=== PATIENT | female | born 1940 | race American Indian/Alaskan Native ===

== ENCOUNTER 2016-10-18 14:28 | Outpatient (CLI) | payer MEDICARE ==
--- NOTE | 2016-10-19 11:52 | Ultrasound Report ---
Renal sonogram: History: Chronic kidney disease. Findings: Right kidney 10.6 x 4.3 x 4.6 cm. Cortical thickness is 1.0 cm. No mass. No hydronephrosis. Left kidney 10 x 4.4 x 4.7 cm. Cortical thickness 1.4 cm. No mass. No hydronephrosis. Impression: Essentially negative renal sonogram
== END 2016-10-18 14:29 | disposition home or self-care (01) ==
LOC: US 14:28
PROVIDERS: ATTEND Internal Medicine Nephrology
DX: N18.4 Chronic kidney disease, stage 4 (severe) (principal)
CPT/HCPCS: 76770

== ENCOUNTER 2017-08-12 12:26 | Day surgery (SDC) | payer MEDICARE ==
[~2017-08-12 12:26] MED LIST: NACL 0.9% 1000 ML 1,000 ML IV SCH; VANCOMYCIN/NS 1 GM/250 ML 1 GM/250 ML BAG IV NR
[2017-08-12] MEDS ORDERED: SUBLIMAZE IV PRN (13:48)
[2017-08-12] MEDS ORDERED: DILAUDID IV PRN (13:48)
--- NOTE | 2017-08-12 13:50 | Anesthesia Day of Surgery ---
Anesthesia Day of Surgery - Day of Surgery Patient Examined: Yes Patient H&P Reviewed: Yes Patient is NPO: Yes
--- NOTE | 2017-08-12 13:51 | Anesthesia Consultation ---
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
[2017-08-12] MEDS ORDERED: PEPCID IV NR (14:00)
[2017-08-12] MEDS ORDERED: LACTATED RINGERS 1,000 ML IV SCH (14:00)
[2017-08-12 14:58] LABS: Calcium 9.2 mg/dL (8.4-10.2)
[2017-08-12] MEDS ORDERED: VANCOMYCIN/NS 1 GM/250 ML 1 GM/250 ML BAG IV NR (15:00)
[2017-08-12] MEDS ORDERED: BENADRYL IV PRN (19:56)
[2017-08-12] MEDS ORDERED: XYLOCAINE MPF 2% ONE (20:39)
[2017-08-12] MEDS ORDERED: DIPRIVAN 10 MG/ML IV ONE (20:39)
[2017-08-12] MEDS ORDERED: DILAUDID ONE (20:39)
[2017-08-12] MEDS ORDERED: MARCAINE 0.5% INFILTRATI ONE (21:24)
[2017-08-12] MEDS ORDERED: HEPARIN 10,000 UNITS/10 ML IV ONE (21:24)
[2017-08-12] MEDS ORDERED: NACL 0.9% 500 ML IV ONE (21:24)
[2017-08-12] MEDS ORDERED: NACL 0.9% 500 ML 500 ML ONE (21:31)
[2017-08-12] MEDS ORDERED: HEPARIN 10,000 UNITS/10 ML ONE (21:31)
[2017-08-12] MEDS ORDERED: MARCAINE 0.25% INFILTRATI ONE (21:31)
--- NOTE | 2017-08-12 22:34 | Post Anesthesia Evaluation ---
- Post Anesthesia Evaluation Patient Participated: Yes Airway Patent: Yes Stable Respiratory Function: Yes Temp > 96.8F: Yes Pain Manageable: Yes Adequeate Hydration: Yes Anesthesia Complications: No
--- NOTE | 2017-08-12 22:56 | Short Stay Summary ---
Short Stay Documentation Date of service: 08/12/17 Narrative H&P: See H&P - History H&P: obtained from office - Allergies and Medications Current Medications: Allergies aspirin Allergy (Verified 08/12/17 17:00) Swelling latex Allergy (Verified 08/06/17 10:53) rash, blisters Penicillins Allergy (Verified 08/06/17 10:53) Unknown sulfamethoxazole [From Bactrim] Allergy (Verified 08/12/17 16:49) Swelling trimethoprim [From Bactrim] Allergy (Verified 08/12/17 16:49) Swelling vancomycin Adverse Reaction (Verified 08/12/17 20:03) Itching STARTED ITCHING TO AXILLA AND NECK AFTER RECEIVING VANCOMYCIN IV. Home Medications Medication Instructions Recorded Confirmed Last Taken Type Carbidopa/Levodopa ER 50-200 1 each PO QID 04/30/14 08/12/17 08/12/17 17:45 History [Sinemet ER 50/200] Amantadine HCl [Amantadine] 200 mg PO DAILY 08/06/17 08/12/17 08/11/17 12:00 History Ascorbic Acid [Vitamin C] 1,000 mg PO Q48H 08/06/17 08/12/17 08/10/17 History Docusate Sodium [Colace] 100 mg PO BID PRN 08/06/17 08/12/17 07/29/17 History Folic Acid [Folvite] 25 mg PO DAILY 08/06/17 08/12/17 08/11/17 12:00 History Furosemide [Lasix] 20 mg PO QDAY 08/06/17 08/12/17 08/11/17 18:00 History Ubidecarenone [Co Q-10] 100 mg PO DAILY 08/06/17 08/12/17 08/10/17 History Active Medications Diphenhydramine HCl (Benadryl) 25 mg IV ONCE PRN PRN Reason: Itching Last Admin: 08/12/17 20:19 Dose: 25 mg Famotidine (Pepcid) 20 mg IV PREOP NR Stop: 08/12/17 23:00 Last Admin: 08/12/17 14:23 Dose: 20 mg Fentanyl (Sublimaze) 50 mcg IV Q5MIN PRN PRN Reason: Pain , Severe (7-10) Hydromorphone HCl (Dilaudid) 0.25 mg IV Q10MIN PRN PRN Reason: Pain, Moderate (4-6) Sodium Chloride (Nacl 0.9% 1000 Ml) 1,000 mls @ 42 mls/hr IV DIRECT JUSTIN Last Admin: 08/12/17 16:52 Dose: 42 mls/hr Lactated Ringer's (Lactated Ringers) 1,000 mls @ 100 mls/hr IV DIRECT JUSTIN Last Admin: 08/12/17 14:23 Dose: 100 mls/hr - Brief post op/procedure progress note Date of procedure: 08/12/17 Pre-op diagnosis: Chronic Renal Sufficiency Post-op diagnosis: same Procedure: Creation of Left Brachiocephalic Arteriovenous Fistula Anesthesia: PAVITHRA Surgeon: RAMSEY BERRIOS Estimated blood loss: minimal Pathology: none Condition: stable - Disposition Condition at discharge: Good Disposition: DC-01 TO HOME OR SELFCARE Short Stay Discharge Plan Activity: other (no heavy lifting with left arm) Wound: open to air, keep clean and dry, other (okay to wash the wound with soap and water but do not soak in water) Follow up with: RAMSEY BERRIOS MD [Staff Physician] - 14 Days Prescriptions: HYDROcodone/APAP 7.5-325 [[place] 7.5/325] 1 each PO Q6HR PRN #40 tablet PRN Reason: Pain
--- NOTE | 2017-08-12 22:58 | Operative Report ---
Operative Report Operative Report: Date of procedure: 08/12/2018 Pre-operative diagnosis: End-Stage Renal Disease Post-operative diagnosis: End-Stage Renal Disease Procedure(s): Creation of Left Brachial Artery to Cephalic Vein Arteriovenous Fistula Surgeon: Harish Salmeron MD Ladies Suit Operator: Tristin Deng PA-C Anesthesia: Gen. endotracheal anesthesia EBL: Minimal Counts: Correct Complications: None Condition: Stable Findings: Successful creation of left brachiocephalic arteriovenous fistula with palpable thrill at the completion of the case. Specimen: None Indications: The patient is a 76-year-old female with a history of chronic renal insufficiency who was not yet on dialysis however it is anticipated that she will require dialysis in the next few months. She had a vein mapping that demonstrated she was an adequate candidate for creation of an AV fistula. She was offered the fistula and given the risks, benefits, and alternative procedures and consented to the procedure. Description of Procedure: The patient was brought to the operating room and laid in supine position after general endotracheal anesthesia was administered the patient was prepped and draped in normal sterile fashion. After anesthetizing the skin a transverse incision was created just below the antecubital crease. Dissection was carried down to the the cephalic vein using sharp dissection. The vein was dissected out both proximally and distally and suture ligated and divided distally. I then ran a 3 Thierno proximally in the vein, to ensure patency of the vein. Then flushed the vein with heparinized saline and flow was controlled with a bulldog clamp. I then dissected out the brachial artery through this incision circumferentially both proximal and distal and controlled the artery with vessel loops. I then placed the vessel loops on tension controlling the flow through the artery and created an arteriotomy using an 11 blade and Ling scissors. I created an end to side anastomosis between the cephalic vein and brachial artery using a 6-0 Prolene in running fashion. Prior to completing the anastomosis I flushed the artery both proximally and distally and then advanced a 3 Thierno proximally to break the spasm in the artery. I then completed the anastomosis and removed all vessel loops allowing flow into the fistula which had an excellent thrill. I achieved hemostasis with a combination of direct pressure and electrocautery. Once hemostasis was achieved I anesthetized the wound with Marcaine. I then closed the wound in 2 layers and 3-0 Vicryl in a running fashion to close the deep dermal layer and 4- 0 Monocryl in a running fashion in the subcuticular layer. I dressed the wound with Surgicel. The patient tolerated the procedure well, all sponge needle and instrument counts were correct. The patient was taken to recovery in stable condition.
[2017-08-12] MEDS ORDERED: APRESOLINE IV PRN (23:00)
[2017-08-12 23:36] VITALS: BP 155/84
== END 2017-08-12 12:27 | disposition home or self-care (01) ==
LOC: OR 12:26
PROVIDERS: ATTEND Surgery Vascular Surgery
DX: I12.0 Hypertensive chronic kidney disease with stage 5 chronic kidney disease or end stage renal disease (principal); N18.6 End stage renal disease; G20 Parkinson's disease; M19.90 Unspecified osteoarthritis, unspecified site; Z79.899 Other long term (current) drug therapy; Z88.1 Allergy status to other antibiotic agents; Z88.0 Allergy status to penicillin; Z88.2 Allergy status to sulfonamides; Z88.8 Allergy status to other drugs, medicaments and biological substances; Z88.6 Allergy status to analgesic agent; Z91.040 Latex allergy status; Z85.038 Personal history of other malignant neoplasm of large intestine; Z90.710 Acquired absence of both cervix and uterus; Z98.890 Other specified postprocedural states
CPT/HCPCS: 36415; 36821; 80048; J0360; J1170; J1200; J1644; J2704; J7030; J7040; J7120; J3370

== ENCOUNTER 2017-10-14 10:43 | Day surgery (SDC) | payer MEDICARE ==
[~2017-10-14 10:43] MED LIST changes: +CLEOCIN 600 MG/50 mL 600 MG/50 ML BAG IV NR; +HEPARIN 10,000 UNITS/10 ML ONE; +MARCAINE 0.5% INFILTRATI ONE; +NACL 0.9% 250ML 250 ML ONE; +SODIUM CHLORIDE FLUSH SYRINGE 10 ML IV PRN; -VANCOMYCIN/NS 1 GM/250 ML 1 GM/250 ML BAG IV NR
[2017-10-14] MEDS ORDERED: NACL BACTERIOSTATIC INFILTRATI ONE (11:36)
--- NOTE | 2017-10-14 13:15 | Anesthesia Consultation ---
Anesthesia Consult and Med Hx Date of service: 10/14/17 - Airway Anesthetic Teeth Evaluation: Good ROM Head & Neck: Inadequate (borderline on extension, rotation is what the patient indicates aggravates the arthritis) Mental/Hyoid Distance: Adequate Mallampati Class: Class II Intubation Access Assessment: Possibly Difficult - Pulmonary Exam CTA: Yes - Cardiac Exam Cardiac Exam: RRR - Pre-Operative Health Status ASA Pre-Surgery Classification: ASA3 Proposed Anesthetic Plan: General - Pulmonary Hx Smoking: No - Cardiovascular System Hx Hypertension: Yes (at least 6 yrs) - Central Nervous System Hx Neuromuscular Disorder: Yes (parkinsons dz/can swallow without problem) Hx Seizures: Yes (related to Parkinson's Disease) Hx Psychiatric Problems: No - Endocrine Hx Renal Disease: Yes Hx End Stage Renal Disease: Yes - Other Systems Hx Cancer: Yes
--- NOTE | 2017-10-14 13:17 | Anesthesia Day of Surgery ---
Anesthesia Day of Surgery - Day of Surgery Patient Examined: Yes Patient H&P Reviewed: Yes Patient is NPO: Yes
[2017-10-14 13:18] LABS: Mean Corpuscular HGB Conc 31 % (30-34); Mean Corpuscular Hemoglobin 28 pg (28-32); Mean Corpuscular Volume 89 fl (79-97); Platelet Count 153 K/mm3 (140-440); Red Blood Count 4.86 M/mm3 (3.65-5.03); Red Cell Distribution Width 17.1 % (13.2-15.2)
[2017-10-14 13:19] LABS: Hematocrit 43.2 % (30.3-42.9); Hemoglobin 13.4 gm/dl (10.1-14.3)
[2017-10-14 13:24] LABS: INR 0.97 (0.87-1.13)
[2017-10-14 13:27] LABS: Calcium 9.2 mg/dL (8.4-10.2)
[2017-10-14] MEDS ORDERED: DIPRIVAN 10 MG/ML IV ONE (14:43)
[2017-10-14] MEDS ORDERED: SUBLIMAZE ONE (14:43)
[2017-10-14] MEDS ORDERED: MARCAINE 0.5% INFILTRATI ONE ×2 (14:53→16:10)
[2017-10-14] MEDS ORDERED: RIFADIN ONE (15:06)
[2017-10-14] MEDS ORDERED: NACL 0.9% IR ONE (16:10)
[2017-10-14] MEDS ORDERED: HEPARIN 10,000 UNITS/10 ML 1,000 UNIT in NACL 0.9% 250ML 250 ML IR ONE (16:10)
[2017-10-14] MEDS ORDERED: RIFADIN 600 MG in NACL 0.9% 50 ML IR ONE (16:11)
[2017-10-14] MEDS ORDERED: NEO SYNEPHRINE/NS Syringe(OR USE) IV ONE (16:11)
[2017-10-14] MEDS ORDERED: ZOFRAN ONE (16:12)
[2017-10-14] MEDS ORDERED: XYLOCAINE MPF 2% ONE (16:13)
[2017-10-14] MEDS ORDERED: ePHEDrine SULFATE ONE (16:25)
--- NOTE | 2017-10-14 17:08 | Short Stay Summary ---
Short Stay Documentation Date of service: 10/14/17 Narrative H&P: See H&P - History H&P: obtained from office - Allergies and Medications Current Medications: Allergies aspirin Allergy (Verified 10/10/17 14:46) Swelling latex Allergy (Verified 10/10/17 14:46) rash, blisters Penicillins Allergy (Verified 10/10/17 14:46) Unknown sulfamethoxazole [From Bactrim] Allergy (Verified 10/10/17 14:46) Swelling trimethoprim [From Bactrim] Allergy (Verified 10/10/17 14:46) Swelling vancomycin Adverse Reaction (Verified 10/10/17 14:46) Itching STARTED ITCHING TO AXILLA AND NECK AFTER RECEIVING VANCOMYCIN IV. Home Medications Medication Instructions Recorded Confirmed Last Taken Type Carbidopa/Levodopa ER 50-200 1 each PO QID 04/30/14 10/14/17 10/14/17 09:15 History [Sinemet ER 50/200] Amantadine HCl [Amantadine] 200 mg PO DAILY 08/06/17 10/14/17 10/13/17 History Ascorbic Acid [Vitamin C] 300 mg PO DAILY 08/06/17 10/14/17 10/12/17 History Docusate Sodium [Colace CAP] 100 mg PO BID PRN 08/06/17 10/14/17 10/13/17 History Folic Acid [Folvite] 25 mg PO DAILY 08/06/17 10/14/17 10/13/17 History Furosemide [Lasix TAB] 20 mg PO QDAY 08/06/17 10/14/17 10/12/17 History Ubidecarenone [Co Q-10] 100 mg PO DAILY 08/06/17 10/14/17 10/13/17 History Cholecalciferol (Vitamin D3) 50,000 unit PO 1XW 10/14/17 10/14/17 10/13/17 History [Vitamin D3] cloNIDine [Catapres] 0.2 mg PO PRN PRN 10/14/17 10/14/17 1 Week Ago History ~10/07/17 Active Medications Clindamycin HCl (Cleocin 600 Mg/50 Ml) 600 mg in 50 mls @ 100 mls/hr IV PREOP NR; Protocol Stop: 10/14/17 23:59 Sodium Chloride (Nacl 0.9% 1000 Ml) 1,000 mls @ 42 mls/hr IV DIRECT JUSTIN Last Admin: 10/14/17 12:05 Dose: 42 mls/hr Sodium Chloride (Sodium Chloride Flush Syringe 10 Ml) 10 ml IV PRN PRN PRN Reason: flush - Brief post op/procedure progress note Date of procedure: 10/14/17 Pre-op diagnosis: End-Stage Renal Disease Post-op diagnosis: same Procedure: Creation of Left Arm AV Graft Using 5 Mm Bovine Graft Anesthesia: GETA Surgeon: RAMSEY BERRIOS Estimated blood loss: 50-100ml Pathology: none Condition: stable - Disposition Condition at discharge: Good Disposition: DC-01 TO HOME OR SELFCARE Short Stay Discharge Plan Activity: other (no heavy lifting with left arm) Wound: open to air, keep clean and dry Follow up with: RAMSEY BERRIOS MD [Staff Physician] - 14 Days Prescriptions: HYDROcodone/APAP 7.5-325 [[place] 7.5/325] 1 each PO Q6HR PRN #40 tablet PRN Reason: Pain
--- NOTE | 2017-10-14 17:09 | Operative Report ---
Operative Report Operative Report: Date of procedure: 10/14/2017 Pre-operative diagnosis: End-Stage Renal Disease Post-operative diagnosis: Same Procedure(s): 1. Creation of Left Brachial Artery to Axillary Vein AV Graft with 5 mm Bovine Graft Surgeon: Harish Salmeron MD Certified Breastfeeding Educator: None Anesthesia: General Endotracheal Anesthesia EBL: Minimal Counts: Correct Complications: None Condition: Stable Findings: Successful Creation of Left Arm AV Graft Specimen: None Indication: The patient is 76-year-old female with history of end-stage renal disease who previously had creation of a left arm AV fistula that failed. She is in need of long-term access and needs creation of an AV graft. She was given the risks , benefits, and alternative procedures and consented to the procedure. Description of Procedure: The patient was brought to the operating room and laid in supine position after general endotracheal anesthesia was achieved the left arm was prepped and draped in normal sterile fashion. A longitudinal incision was made on the medial aspect of the arm just proximal to the antecubital crease and carried down to the brachial artery using sharp dissection. The brachial artery was dissected out circumferentially both proximally and distally and controlled with vessel loops. A second incision was created in longitudinal fashion on the medial aspect of the arm just distal to the axillary crease and carried down to the axillary vein using sharp dissection. Axillary vein was dissected out circumferentially and controlled with a vessel loop. I then used a Angie- Wick tunneler to tunnel from the brachial artery incision to the axillary vein incision and then put an 5 mm bovine through the tunnel. I infused with heparinized saline to ensure that it was not twisted or kinked. I put the brachial artery vessel loops on tension controlling the flow and then created an arteriotomy using an 11 blade and Ling scissors. I beveled the graft and created an end-to-side anastomosis using 6-0 Prolene running fashion. I clamped the graft just proximal to the anastomosis and then released the vessel loops restoring flow in the brachial artery. I placed quick clot in incision to achieve hemostasis. I cut the proximal end of the graft to the appropriate length and beveled the graft in preparation for a venous anastomosis. I controlled the axillary vein a Satinsky clamp and created a venotomy using an 11 blade and Ling scissors. I created an end to side anastomosis using a 6-0 Prolene in running fashion. Prior to completing the anastomosis I flushed the graft to ensure there was no thrombus and then completed the anastamosis. I released all clamps allowing flow into the AV graft which had an excellent thrill. I packed the wound with quick clot to achieve hemostasis. I anesthetized both wounds with Marcaine and then closed both wounds in 2 layers using 3-0 Vicryl in running fashion in the deep dermal layer and 4-0 Monocryl in running fashion the subcuticular layer. I dressed both wounds with Surgicel. The patient tolerated the procedure well all sponge needle and instrument counts were correct the patient was taken to recovery in stable condition.
[2017-10-14] MEDS: DILAUDID IV PRN ×2 (17:22→17:45)
[2017-10-14] MEDS ORDERED: DILAUDID ONE (17:22)
[2017-10-14] MEDS ORDERED: ZOFRAN IV PRN (17:23)
--- NOTE | 2017-10-14 17:24 | Post Anesthesia Evaluation ---
- Post Anesthesia Evaluation Patient Participated: Yes Airway Patent: Yes Stable Respiratory Function: Yes Nausea/Vomiting: No Temp > 96.8F: Yes Pain Manageable: Yes Adequeate Hydration: Yes Anesthesia Complications: No
[2017-10-14] MEDS ORDERED: NORCO 5/325 PO PRN (17:46)
[2017-10-14 20:59] VITALS: BP 164/84
== END 2017-10-14 18:50 | disposition home or self-care (01) ==
LOC: OR 10:43
PROVIDERS: ATTEND Surgery Vascular Surgery
DX: I12.0 Hypertensive chronic kidney disease with stage 5 chronic kidney disease or end stage renal disease (principal); N18.6 End stage renal disease; G20 Parkinson's disease; M19.90 Unspecified osteoarthritis, unspecified site; Z88.0 Allergy status to penicillin; Z88.6 Allergy status to analgesic agent; Z88.2 Allergy status to sulfonamides; Z88.1 Allergy status to other antibiotic agents; Z85.9 Personal history of malignant neoplasm, unspecified; Z90.710 Acquired absence of both cervix and uterus; Z98.890 Other specified postprocedural states
CPT/HCPCS: 36415; 36830; 80048; 85025; 85610; C1757; C1768; J1170; J1644; J2370; J2405; J2704; J3010; J3490; J7030; J7050

== ENCOUNTER 2017-11-03 16:25 | Outpatient (CLI) | payer MEDICARE ==
--- NOTE | 2017-11-04 00:37 | XRay Report ---
FINAL REPORT EXAM: XR CHEST ROUTINE 2V HISTORY: SOB TECHNIQUE: AP and lateral views of the chest were submitted. There are no previous studies available for comparison. FINDINGS: Heart size and mediastinum appear normal. The lungs are clear. Pleural fluid is not seen. The skeletal structures reveal right humeral arthroplasty changes with arthritic changes left glenohumeral joint. IMPRESSION: No active chest disease.
== END 2017-11-03 16:26 | disposition home or self-care (01) ==
LOC: XRAY 16:25
PROVIDERS: ATTEND Internal Medicine Nephrology
DX: R06.02 Shortness of breath (principal); M24.819 Other specific joint derangements of unspecified shoulder, not elsewhere classified; I10 Essential (primary) hypertension; K21.9 Gastro-esophageal reflux disease without esophagitis; Z96.611 Presence of right artificial shoulder joint
CPT/HCPCS: 71046

== ENCOUNTER 2017-11-04 11:09 | Day surgery (SDC) | payer MEDICARE ==
[~2017-11-04 11:09] MED LIST changes: -CLEOCIN 600 MG/50 mL 600 MG/50 ML BAG IV NR; -HEPARIN 10,000 UNITS/10 ML ONE; -MARCAINE 0.5% INFILTRATI ONE; -NACL 0.9% 250ML 250 ML ONE; -SODIUM CHLORIDE FLUSH SYRINGE 10 ML IV PRN
[2017-11-04 12:54] LABS: Basophils % (Auto) 0.7 % (0.0-1.8); Eosinophils % (Auto) 1.2 % (0.0-4.3); Hemoglobin 12.1 gm/dl (10.1-14.3); Lymphocytes # (Auto) 1.3 K/mm3 (1.2-5.4); Lymphocytes % (Auto) 33.6 % (13.4-35.0); Mean Corpuscular HGB Conc 32 % (30-34); Mean Corpuscular Hemoglobin 27 pg (28-32); Mean Corpuscular Volume 85 fl (79-97); Monocytes # (Auto) 0.5 K/mm3 (0.0-0.8); Monocytes % (Auto) 12.3 % (0.0-7.3); Platelet Count 215 K/mm3 (140-440); Red Blood Count 4.48 M/mm3 (3.65-5.03); Red Cell Distribution Width 15.4 % (13.2-15.2)
[2017-11-04 13:04] LABS: INR 0.93 (0.87-1.13)
[2017-11-04 13:05] LABS: Partial Thromboplastin Time 32.2 Sec. (24.2-36.6)
[2017-11-04 13:14] LABS: Calcium 9.3 mg/dL (8.4-10.2)
[2017-11-04] MEDS ORDERED: HEPARIN/NS 5000 UNIT/500ML(CATH LAB) 1,000 ML IR ONE (14:20)
[2017-11-04] MEDS ORDERED: NACL 0.9% 250ML 250 ML ONE (14:36)
[2017-11-04] MEDS: SUBLIMAZE ONE ×8 (14:53→18:23)
[2017-11-04] MEDS: XYLOCAINE 2% INFILTRATI ONE ×2 (14:53→15:09)
[2017-11-04] MEDS: VERSED ONE ×7 (14:53→18:23)
[2017-11-04] MEDS: HEPARIN 10,000 UNITS/10 ML ONE ×3 (15:19→16:48)
[2017-11-04] MEDS ORDERED: CLEOCIN 600 MG/50 mL 600 MG/50 ML BAG IV NR (16:00)
[2017-11-04] MEDS ORDERED: HumaLOG SUB-Q ONE (16:37)
[2017-11-04] MEDS ORDERED: NITROGLYCERIN SYRINGE 3 ML ONE (16:44)
[2017-11-04] MEDS ORDERED: CALAN ONE (16:44)
[2017-11-04] MEDS ORDERED: HEPARIN/NS 5000 UNIT/500ML(CATH LAB) 500 ML IR ONE ×2 (17:01→17:55)
[2017-11-04] MEDS ORDERED: CATHFLO ONE ×2 (17:19→17:20)
[2017-11-04] MEDS ORDERED: APRESOLINE ONE (18:38)
--- NOTE | 2017-11-04 18:51 | Post Operative Note ---
Pre-op diagnosis: CKD Post-op diagnosis: same Findings: Succesful graft declotting LUE Procedure: Fistulagram with declot Anesthesia: local Surgeon: HOLDEN RANDHAWA Paralegal Supervisor: RAMSEY BERRIOS Estimated blood loss: minimal Pathology: none Condition: stable Disposition: same day
[2017-11-04] MEDS ORDERED: TYLENOL PO ONE (19:55)
[2017-11-04] MEDS ORDERED: TYLENOL ONE (19:55)
[2017-11-04 21:01] VITALS: BP 165/89
--- NOTE | 2017-11-05 11:02 | Operative Report ---
Operative Report Operative Report: Procedure: 1. Ultrasound-guided access of a left upper extremity AV graft directed towards the central circulation 1. Central venography 3. Lunar venoplasty of the venous anastomosis with a drug coated balloon 4. Ultrasound-guided access of the graft in the direction of the arterial anastomosis 5. Left upper extremity AV graft angiography 6. Ultrasound-guided access of the left radial artery 7. Left radial arteriography 8. Left brachial arteriography after selection. 9. Mechanical thrombolysis of the radial artery with a 6 [place] AngioJet 10. Plain old and then drug coated balloon angioplasty of the brachial and proximal radial artery 11. Plain old balloon angioplasty of the arterial anastomosis via the distal brachial artery through the graft 12. Repeat plain balloon angioplasty of the brachial artery across the arterial anastomosis. Date: 11/04/2017 Physician: Michele Wisdom MD 2nd Physician: Harish Salmeron MD Indication: 77-year-old female with CKD, not yet on dialysis. She has a clotted LUE AVG Technique The patient was placed in the supine position and prepped and draped in the usual sterile fashion. A timeout was performed. Preliminary sonographic evaluation of the left upper extremity graft was performed. A site was chosen, and local anesthetic was administered. Under continuous ultrasound guidance, a 21-gauge needle was advanced into the graft, facing the central circulation. This was then upsized to a 7 Slovenian vascular sheath via a micropuncture technique. Angiography was performed. A combination of a V18 wire and 4 Slovenian vertebral catheter was used to traverse the venous anastomosis and access the IVC. The venous anastomosis was treated with plain and old balloon angioplasty with a 4 mm and 6 mm balloon. A 7 mm drug coated balloon was then used to perform final angioplasty of the venous anastomosis. Repeat venography was performed. In a similar fashion as above, a 6 Slovenian vascular sheath was placed in the more proximal portion of the graft, facing the arterial anastomosis. Initially , no wires would cross the anastomosis, and it appeared occluded. After prolonged attempts to cross, with multiple wires and catheters, the decision was made to access the radial artery for further investigation. Local anesthetic was administered, and a 21-gauge needle was used to access the distal left radial artery. The needle was upsized to a slender glide sheath. Through the glide sheath, a glide wire and vertebral catheter were used to access the brachial artery. Arteriography was performed. Based on the imaging, a 6 [place] AngioJet catheter was used to perform mechanical thrombolysis of the distal brachial and proximal ulnar artery. This was done 3 times, with repeat arteriography after each run. First a plain 4 mm balloon, then a 6 mm drug coated balloon was used to perform angioplasty on the distal portion of the brachial artery. A wire from the radial artery was then redirected into the graft, and balloon angioplasty was performed extending from the graft to the portion of the brachial artery distal to the anastomosis; this was performed with a 4 mm and then 5 mm balloon. Repeat angioplasty of the brachial artery segment involving the anastomosis was performed at higher pressures with a 6 mm mustang balloon. The radial artery sheath was removed and hemostasis was achieved with manual pressure and a pressure dressing. Both sheaths were removed from the arm, and hemostasis was achieved with 3-0 Vicryl pursestring sutures. Findings: 1. 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 There was successful removal of clot from the graft. 2. The arterial anastomosis was narrowed and friable, as was the axillary vein segment just central to the venous anastomosis. Patency was largely restored after venoplasty with a drug coated balloon. 3. Retrograde passage of a wire across the arterial anastomosis was extremely difficult initially. Imaging via the radial artery access revealed the distal brachial artery to be near completely thrombosed, with this region of thrombosis extending to the proximal radial artery. Numerous robust collateral arteries indicate that this was a long-standing process and may have been the reason that this patient's initial fistula failed to mature. 4. The patient's bounding radial pulse and patency of the distal radial artery on both fluoroscopy and ultrasound is the result of the aforementioned numerous large collateral arteries reconstituting distal flow. 5. After extensive procedure time involving prolonged wire/catheter manipulation and balloon angioplasty, there is successful reconstitution of flow in the distal brachial artery and the arterial anastomosis of the AV graft. Plan: The patient will be sent home on short-term Eliquis for 2 weeks because of the findings in the brachial/radial arteries.
== END 2017-11-04 21:23 | disposition home or self-care (01) ==
LOC: CATHLABREC 11:09
PROVIDERS: ATTEND Surgery Vascular Surgery
DX: T82.590A Other mechanical complication of surgically created arteriovenous fistula, initial encounter (principal); I12.0 Hypertensive chronic kidney disease with stage 5 chronic kidney disease or end stage renal disease; N18.6 End stage renal disease; Z79.01 Long term (current) use of anticoagulants; Z88.0 Allergy status to penicillin; Z88.6 Allergy status to analgesic agent; Z88.2 Allergy status to sulfonamides; Z88.1 Allergy status to other antibiotic agents; Z90.710 Acquired absence of both cervix and uterus; Z91.040 Latex allergy status
CPT/HCPCS: 36415; 36905; 80048; 85025; 85610; 85730; C1725; C1751; C1757; C1769; C1887; C1894; C2623; J0360; J1644; J2250; J2997; J3010; J7050; J1815; Q9967

== ENCOUNTER 2018-10-23 17:47 | Inpatient (IN) | payer MEDICARE ==
--- NOTE | 2018-10-23 18:15 | Emergency Department Report ---
Chief Complaint: Chest Pain Stated Complaint: CHEST CONGESTED/NAUSEA Time Seen by Provider: 10/23/18 18:10 - HPI History of Present Illness: This is a 78 y.o. female that presents with chest pain and n/v x 3 days. PMH: GERD, arthritis, HTN, ESRD, Parkinson, and vascular insufficiency Patient states symptoms started in stomach and progressed to chest. She called chalk machine operator who states symptoms may be related to kidneys. She has not started dialysis yet. - Exam Vital Signs: Vital Signs 10/23/18 17:55 Temperature 98.6 F Pulse Rate 91 H Respiratory 18 Rate Blood Pressure 126/63 O2 Sat by Pulse 100 Oximetry MSE screening note: Focused history and physical exam performed. Due to findings the following was ordered: Labs, EKG, and CXR Main ED for further evaluation. ED Disposition for MSE Condition: Stable
--- NOTE | 2018-10-23 19:28 | XRay Report ---
PROCEDURE: XR CHEST 1V AP TECHNIQUE: PA views of the chest. HISTORY: Chest Pain COMPARISONS: CXR 11/03/2017 FINDINGS: Lines, tubes, and devices: N/A Lungs and pleura: Trachea is normal in position. Lungs are clear of infiltrate, pleural effusion, vas cular congestion, or pneumothorax. No change Cardiomediastinal silhouette: Heart is enlarged with left ventricular configuration, stable Other: Bony structures are intact. Right shoulder replacement is noted. IMPRESSION: No acute cardiopulmonary process seen. No change.. This document is electronically signed by Britney Golden MD., October 23 2018 07:25:56 PM ET
[2018-10-23 19:44] LABS: Basophils % (Auto) 0.3 % (0.0-1.8); Eosinophils % (Auto) 0.8 % (0.0-4.3); Hematocrit 32.9 % (30.3-42.9); Hemoglobin 10.4 gm/dl (10.1-14.3); Lymphocytes # (Auto) 1.5 K/mm3 (1.2-5.4); Lymphocytes % (Auto) 30.3 % (13.4-35.0); Mean Corpuscular HGB Conc 32 % (30-34); Mean Corpuscular Volume 80 fl (79-97); Monocytes # (Auto) 0.5 K/mm3 (0.0-0.8); Monocytes % (Auto) 10.5 % (0.0-7.3); Platelet Count 276 K/mm3 (140-440)
[2018-10-23 19:45] LABS: Red Cell Distribution Width 20.1 % (13.2-15.2)
[2018-10-23 20:07] LABS: Calcium 9.4 mg/dL (8.4-10.2)
[2018-10-23 20:33] LABS: Chol/HDL Ratio 2.66 %
[2018-10-24] MEDS ORDERED: PLAVIX PO ONE (01:18)
[2018-10-24] MEDS ORDERED: NITRO-BID 2% TP ONE (01:32)
--- NOTE | 2018-10-24 01:38 | Emergency Department Report ---
HPI - General Chief Complaint: Chest Pain Time Seen by Provider: 10/23/18 18:10 - HPI HPI: Room 17 The patient is a 78-year-old female presenting with chief complaint of chest pain. The patient states for the past 3 days she's had intermittent chest pain was still someone is sitting on her chest. The patient states she has shortness of breath, nausea/vomiting and diaphoresis associated with her chest pain. Patient states her last stress test occurred approximately 7 years ago and she's never had a cardiac catheterization Location: Chest Duration: Intermittent 3 days Quality: Heaviness Severity: Currently 0/10 Modifying factors: [see above] Context: [see above] Mode of transportation: [not driving] ED Past Medical Hx - Past Medical History Hx Hypertension: Yes (at least 6 yrs) Hx GERD: Yes Hx Renal Disease: Yes Hx Arthritis: Yes Hx Seizures: Yes Additional medical history: Parkinson disease, Vascular insufficiency - Surgical History Additional Surgical History: Hysterectomy, Colon surgery, Fibroids removed - Family History Family history: no significant - Social History Smoking Status: Never Smoker Substance Use Type: None - Medications Home Medications: Home Medications Medication Instructions Recorded Confirmed Last Taken Type Carbidopa/Levodopa ER 50-200 1 each PO QID 04/30/14 11/04/17 11/04/17 History [Sinemet ER 50/200] 1 Amantadine HCl [Amantadine] 200 mg PO DAILY 08/06/17 11/04/17 11/03/17 History 200mg Ascorbic Acid [Vitamin C] 300 mg PO DAILY 08/06/17 11/04/17 11/03/17 History 300mg Docusate Sodium [Colace CAP] 100 mg PO BID PRN 08/06/17 11/04/17 10/13/17 History Folic Acid [Folvite] 25 mg PO DAILY 08/06/17 11/04/17 11/03/17 History 25mg Furosemide [Lasix TAB] 20 mg PO QDAY 08/06/17 11/04/17 11/03/17 History 20mg Ubidecarenone [Co Q-10] 100 mg PO DAILY 08/06/17 11/04/17 11/03/17 History 100mg Cholecalciferol (Vitamin D3) 50,000 unit PO 1XW 10/14/17 11/04/17 11/03/17 History [Vitamin D3] 50,000 units cloNIDine [Catapres] 0.2 mg PO PRN PRN 10/14/17 11/04/17 11/03/17 History 0.2mg Apixaban [Eliquis] 5 mg PO BID 14 Days #28 tablet 11/04/17 Unknown Rx HYDROcodone/ACETAMINOPHEN [[place] 1 each PO Q6H 2 Days #8 tablet 11/04/17 U nknown Rx 5-325 Tablet] ED Review of Systems ROS: Stated complaint: CHEST CONGESTED/NAUSEA Other details as noted in HPI Constitutional: diaphoresis Eyes: denies: eye pain ENT: denies: throat pain Respiratory: shortness of breath Cardiovascular: chest pain Endocrine: no symptoms reported Gastrointestinal: nausea, vomiting Genitourinary: denies: dysuria Musculoskeletal: denies: back pain Neurological: denies: headache Physical Exam - Physical Exam Vital Signs: Vital Signs 10/23/18 17:55 Temperature 98.6 F Pulse Rate 91 H Respiratory 18 Rate Blood Pressure 126/63 O2 Sat by Pulse 100 Oximetry Physical Exam: GENERAL: The patient is well-developed well-nourished female sitting in wheelchair not appearing to be in acute distress HEENT: Normocephalic. Atraumatic. Extraocular motions are intact. Patient has moist mucous membranes. NECK: Supple. Trachea midline CHEST/LUNGS: Clear to auscultation. There is no respiratory distress noted. HEART/CARDIOVASCULAR: Regular. There is no tachycardia. There is a 2/6 systolic murmur ABDOMEN: Abdomen is soft, nontender. Patient has normal bowel sounds. There is no abdominal distention. SKIN: There is no rash. There is no edema. There is no diaphoresis. NEURO: The patient is awake, alert, and oriented. The patient is cooperative. The patient has normal speech MUSCULOSKELETAL: There is no evidence of acute injury. ED Course Vital Signs 10/23/18 17:55 Temperature 98.6 F Pulse Rate 91 H Respiratory 18 Rate Blood Pressure 126/63 O2 Sat by Pulse 100 Oximetry ED Medical Decision Making - Lab Data Result diagrams: 10/23/18 19:18 10/23/18 19:18 Laboratory Tests 10/23/18 10/23/18 10/23/18 19:18 19:18 21:54 WBC 5.0 RBC 4.10 Hgb 10.4 Hct 32.9 MCV 80 MCH 25 L MCHC 32 RDW 20.1 H Plt Count 276 Lymph % (Auto) 30.3 [place] % (Auto) 10.5 H Eos % (Auto) 0.8 Baso % (Auto) 0.3 Lymph # 1.5 [place] # 0.5 Eos # 0.0 Baso # 0.0 Seg Neutrophils % 58.1 Seg Neutrophils # 2.9 Sodium 142 Potassium 3.7 Chloride 106.2 Carbon Dioxide 21 L Anion Gap 19 BUN 39 H Creatinine 1.5 H Estimated GFR 41 BUN/Creatinine Ratio 26 Glucose 93 Calcium 9.4 Troponin T 0.034 H 0.044 H D Triglycerides 66 Cholesterol 173 LDL Cholesterol Direct 104 HDL Cholesterol 65 H Cholesterol/HDL Ratio 2.66 10/24/18 00:36 WBC RBC Hgb Hct MCV MCH MCHC RDW Plt Count Lymph % (Auto) [place] % (Auto) Eos % (Auto) Baso % (Auto) Lymph # [place] # Eos # Baso # Seg Neutrophils % Seg Neutrophils # Sodium Potassium Chloride Carbon Dioxide Anion Gap BUN Creatinine Estimated GFR BUN/Creatinine Ratio Glucose Calcium Troponin T 0.045 H Triglycerides Cholesterol LDL Cholesterol Direct HDL Cholesterol Cholesterol/HDL Ratio - EKG Data -: EKG Interpreted by Me EKG shows normal: sinus rhythm Rate: normal - EKG Data When compared to previous EKG there are: previous EKG unavailable Interpretation: nonspecific ST-T wave iain (right bundle-branch block. T-wave inversions in leads V2, V3) - Radiology Data Radiology results: report reviewed (chest x-ray), image reviewed (chest x-ray) interpreted by me: Chest x-ray-no focal infiltrates, no pneumothorax [facility] [address] [place] [address] XRay Report Signed Patient: CHILANGO COPPOLA MR#: [id number] : 1940 Acct:[id number] Age/Sex: 78 / F ADM Date: 10/23/18 Loc: ED Attending Dr: Ordering Physician: THONY OLSEN Date of Service: 10/23/18 Procedure(s): XR chest 1V ap Accession Number(s): [id number] cc: THONY OLSEN Fluoro Time In Minutes: PROCEDURE: XR CHEST 1V AP TECHNIQUE: PA views of the chest. HISTORY: Chest Pain COMPARISONS: CXR 11/03/2017 FINDINGS: Lines, tubes, and devices: N/A Lungs and pleura: Trachea is normal in position. Lungs are clear of infiltrate, pleural effusion, vascular congestion, or pneumothorax. No change Cardiomediastinal silhouette: Heart is enlarged with left ventricular configuration, stable Other: Bony structures are intact. Right shoulder replacement is noted. IMPRESSION: No acute cardiopulmonary process seen. No change.. This document is electronically signed by Britney Golden MD., October 23 2018 07:25:56 PM ET Transcribed By: [facility] Dictated By: BRITNEY GOLDEN MD Electronically Authenticated By: BRITNEY GOLDEN MD Signed Date/Time: 10/23/181927 DD/ 35 TD/TT: 10/23/181835 - Differential Diagnosis ACS, pericarditis, GERD Critical care attestation.: If time is entered above; I have spent that time in minutes in the direct care of this critically ill patient, excluding procedure time. ED Disposition Clinical Impression: Chest pain, Renal insufficiency, Elevated troponin Disposition: OP ADMIT IP TO THIS HOSP Is pt being admited?: Yes Does the pt Need Aspirin: No Condition: Fair Instructions: Chest Pain (ED) Referrals: REYMUNDO PRASAD MD [Primary Care Provider] - 3-5 Days Time of Disposition: 01:40 (hospitalist paged (Dr Allred))
[2018-10-24] MEDS ORDERED: ZOFRAN IV PRN (03:04)
[2018-10-24] MEDS ORDERED: ALUM-MAG HYDROX-SIMETH 200-200-20MG/5ML PO PRN (03:04)
[2018-10-24] MEDS ORDERED: SODIUM CHLORIDE FLUSH SYRINGE 10 ML IV PRN (03:04)
[2018-10-24] MEDS ORDERED: MORPHINE IV PRN (03:04)
[2018-10-24] MEDS ORDERED: TYLENOL PO PRN (03:04)
[2018-10-24] MEDS ORDERED: NITROSTAT SL PRN (03:07)
--- NOTE | 2018-10-24 03:42 | History and Physical Report ---
History of Present Illness Date of examination: 10/24/18 Chief complaint: Chest pain History of present illness: Patient is a 78 year old female with PMHX of hypertension and Parkinson' s disease who presented to the ED on account of 3 days history of epigastric pain radiating to the chest. She described it as burning in nature and rated as 7/10. Pain waxes and wanes. No known aggravating factors but pain is slightly relieved with cold water. She has associated palpitation, diaphoresis and headaches. She denies shortness of breath, cough, fever, chills, sore throat, runny nose or congestion. She admits to chronic bilateral leg swelling but not orthopnea or PND. No nausea, vomiting, abdominal pain, constipation, diarrhea, dysuria, frequency, lightheadedness, syncope or loss of consciousness. No reported history of recent stress test Past History Past Medical History: arthritis, hypertension, other (Parkinson's disease, colon cancer, chronic decubitus ulcers) Past Surgical History: hysterectomy, Other (colon resection, right shoulder surgery) Social history: no significant social history (she denies tobacco, alcohol or illicit drug use) Family history: other (reviewed and noncontributory) Medications and Allergies Allergies Allergy/AdvReac Type Severity Reaction Status Date / Time aspirin Allergy Swelling Verified 10/23/18 17:48 latex Allergy rash, Verified 10/23/18 17:48 blisters Penicillins Allergy Unknown Verified 10/23/18 17:48 sulfamethoxazole Allergy Swelling Verified 10/23/18 17:48 [From Bactrim] trimethoprim [From Bactrim] Allergy Swelling Verified 10/23/18 17:48 vancomycin AdvReac Itching Verified 10/23/18 17:48 Home Medications Medication Instructions Recorded Confirmed Last Taken Type Carbidopa/Levodopa ER 50-200 1 each PO QID 04/30/14 11/04/17 11/04/17 History [Sinemet ER 50/200] 1 Amantadine HCl [Amantadine] 200 mg PO DAILY 08/06/17 11/04/17 11/03/17 History 200mg Ascorbic Acid [Vitamin C] 300 mg PO DAILY 08/06/17 11/04/17 11/03/17 History 300mg Docusate Sodium [Colace CAP] 100 mg PO BID PRN 08/06/17 11/04/17 10/13/17 History Folic Acid [Folvite] 25 mg PO DAILY 08/06/17 11/04/17 11/03/17 History 25mg Furosemide [Lasix TAB] 20 mg PO QDAY 08/06/17 11/04/17 11/03/17 History 20mg Ubidecarenone [Co Q-10] 100 mg PO DAILY 08/06/17 11/04/17 11/03/17 History 100mg Cholecalciferol (Vitamin D3) 50,000 unit PO 1XW 10/14/17 11/04/17 11/03/17 History [Vitamin D3] 50,000 units cloNIDine [Catapres] 0.2 mg PO PRN PRN 10/14/17 11/04/17 11/03/17 History 0.2mg Apixaban [Eliquis] 5 mg PO BID 14 Days #28 tablet 11/04/17 Unknown Rx HYDROcodone/ACETAMINOPHEN [[place] 1 each PO Q6H 2 Days #8 tablet 11/04/17 Unknown Rx 5-325 Tablet] Active Meds: Active Medications Acetaminophen (Tylenol) 650 mg PO Q4H PRN PRN Reason: Pain MILD(1-3)/Fever >100.5/VELA Al Hydrox/Mg Hydrox/Simethicone (Alum-Mag Hydrox-Simeth [id number]/5ml) 30 ml PO Q4H PRN PRN Reason: Indigestion Docusate Sodium (Colace) 100 mg PO BID JUSTIN Famotidine (Pepcid) 10 mg PO BID JUSTIN Heparin Sodium (Porcine) (Heparin) 5,000 unit SUB-Q Q12HR [facility] Sodium Chloride (Nacl 0.9% 1000 Ml) 1,000 mls @ 75 mls/hr IV DIRECT JUSTIN Morphine Sulfate (Morphine) 1 mg IV Q4H PRN PRN Reason: Pain, Moderate (4-6) Nitroglycerin (Nitrostat) 0.4 mg SL .Q5MIN PRN PRN Reason: Chest Pain Ondansetron HCl (Zofran) 4 mg IV Q8H PRN PRN Reason: Nausea And Vomiting Sodium Chloride (Sodium Chloride Flush Syringe 10 Ml) 10 ml IV BID [facility] Sodium Chloride (Sodium Chloride Flush Syringe 10 Ml) 10 ml IV PRN PRN PRN Reason: LINE FLUSH Review of Systems All systems: negative (except as documented in the HPI, all other systems were reviewed and negative) Exam - Constitutional Vitals: Temp Pulse Resp BP Pulse Ox 98.6 F 93 H 16 196/86 99 10/23/18 17:55 10/24/18 03:30 10/24/18 03:30 10/24/18 03:30 10/24/18 03:30 General appearance: Present: no acute distress - EENT Eyes: Present: PERRL, EOM intact ENT: hearing intact, clear oral mucosa - Neck Neck: Present: supple - Respiratory Respiratory effort: normal Respiratory: bilateral: CTA - Cardiovascular Rhythm: regular Heart Sounds: Present: S1 & S2. Absent: rub, click - Extremities Extremities: pulses symmetrical Extremity abnormal: edema (in bilateral lower extremities) - Abdominal General gastrointestinal: Present: soft, non-tender, non-distended, normal bowel sounds Female genitourinary: Present: deferred - Integumentary Integumentary: Present: erythema (chronic decubitus ulcers) - Musculoskeletal Musculoskeletal: generalized weakness - Psychiatric Psychiatric: appropriate mood/affect, intact judgment & insight - Neurologic Neurologic: other (patient is wheelchair bound) Results - Labs CBC & Chem 7: 10/23/18 19:18 10/23/18 19:18 Labs: Laboratory Last Values WBC 5.0 K/mm3 (4.5-11.0) 10/23/18 19:18 RBC 4.10 M/mm3 (3.65-5.03) 10/23/18 19:18 Hgb 10.4 gm/dl (10.1-14.3) 10/23/18 19:18 Hct 32.9 % (30.3-42.9) 10/23/18 19:18 MCV 80 fl (79-97) 10/23/18 19:18 MCH 25 pg (28-32) L 10/23/18 19:18 MCHC 32 % (30-34) 10/23/18 19:18 RDW 20.1 % (13.2-15.2) H 10/23/18 19:18 Plt Count 276 K/mm3 (140-440) 10/23/18 19:18 Lymph % (Auto) 30.3 % (13.4-35.0) 10/23/18 19:18 [place] % (Auto) 10.5 % (0.0-7.3) H 10/23/18 19:18 Eos % (Auto) 0.8 % (0.0-4.3) 10/23/18 19:18 Baso % (Auto) 0.3 % (0.0-1.8) 10/23/18 19:18 Lymph # 1.5 K/mm3 (1.2-5.4) 10/23/18 19:18 [place] # 0.5 K/mm3 (0.0-0.8) 10/23/18 19:18 Eos # 0.0 K/mm3 (0.0-0.4) 10/23/18 19:18 Baso # 0.0 K/mm3 (0.0-0.1) 10/23/18 19:18 Seg Neutrophils % 58.1 % (40.0-70.0) 10/23/18 19:18 Seg Neutrophils # 2.9 K/mm3 (1.8-7.7) 10/23/18 19:18 Sodium 142 mmol/L (137-145) 10/23/18 19:18 Potassium 3.7 mmol/L (3.6-5.0) 10/23/18 19:18 Chloride 106.2 mmol/L (98-107) 10/23/18 19:18 Carbon Dioxide 21 mmol/L (22-30) L 10/23/18 19:18 Anion Gap 19 mmol/L 10/23/18 19:18 BUN 39 mg/dL (7-17) H 10/23/18 19:18 Creatinine 1.5 mg/dL (0.7-1.2) H 10/23/18 19:18 Estimated GFR 41 ml/min 10/23/18 19:18 BUN/Creatinine Ratio 26 % 10/23/18 19:18 Glucose 93 mg/dL (65-100) 10/23/18 19:18 Calcium 9.4 mg/dL (8.4-10.2) 10/23/18 19:18 Troponin T 0.045 ng/mL (0.00-0.029) H 10/24/18 00:36 Triglycerides 66 mg/dL (2-149) 10/23/18 19:18 Cholesterol 173 mg/dL (50-199) 10/23/18 19:18 LDL Cholesterol Direct 104 mg/dL (50-130) 10/23/18 19:18 HDL Cholesterol 65 mg/dL (40-59) H 10/23/18 19:18 Cholesterol/HDL Ratio 2.66 % 10/23/18 19:18 Assessment and Plan Assessment and plan: Chest pain with mildly elevated troponin -Chest pain pathway -Cardiology consulted -Echocardiogram ordered HTN -Uncontrolled -On antihypertensives, adjust as needed Parkinson's disease -Resume home meds Chronic decubitus ulcers -Wound care nurse consulted ESRD -S/P dialysis catheter. Per patient, she is scheduled to start dialysis soon -Consult nephrology DVT prophylaxis with heparin Disposition: For discharge when medically stable Time spent: 38 minutes
[2018-10-24] MEDS ORDERED: CATAPRES PO PRN (03:47)
[2018-10-24] MEDS ORDERED: NACL 0.9% 1000 ML 1,000 ML IV SCH (04:00)
[2018-10-24] MEDS ORDERED: NORVASC ONE (05:14)
[2018-10-24] MEDS ORDERED: COREG ONE (05:15)
[2018-10-24] MEDS: NORVASC PO SCH (05:19)
[2018-10-24] MEDS: COREG PO SCH ×2 (05:20→23:42)
[2018-10-24] MEDS: HEPARIN SUB-Q SCH ×2 (10:17→23:43)
[2018-10-24] MEDS: COLACE PO SCH ×2 (10:17→23:42)
[2018-10-24] MEDS: SODIUM CHLORIDE FLUSH SYRINGE 10 ML IV SCH ×2 (10:17→23:44)
[2018-10-24] MEDS: PEPCID PO SCH (10:17)
--- NOTE | 2018-10-24 12:17 | Event Note ---
Date: 10/24/18 Patient was seen and evaluated this morning, patient said she is feeling okay. Patient admitted earlier this morning . Management of chest pain with elevated cardiac enzymes, CKD. cardiology and nephrology consult requested. Continue management as outlined in H/P. Hold the BP medications as the BP is fluctuating.
--- NOTE | 2018-10-24 12:58 | Consultation ---
History of Present Illness - Reason for Consult Consult date: 10/24/18 chronic renal failure - History of Present Illness This is a very pleasant 78-year-old black female with past medical history of chronic kidney disease in the setting of hypertension with a history of Parkinson's disease who is a chronic shelter resident presents to emergency department secondary to epigastric pain with radiation to chest. She is well known to our clinic as she sees Dr. Banerjee as an outpatient. Per notes from her previous nephrology visits she has chronic kidney disease stage V and already has a right upper extremity AV fistula that was placed. She has not been initiated on hemodialysis. Labs noted this morning and there is no acute indication for initiation at this time. Overall symptoms have improved since her admission. She is not complaining of any chest pain at this time. Pending cardiology evaluation. Past History Past Medical History: arthritis, hypertension, other (Parkinson's disease, colon cancer, chronic decubitus ulcers) Past Surgical History: hysterectomy, Other (colon resection, right shoulder surgery) Social history: no significant social history (she denies tobacco, alcohol or illicit drug use) Family history: other (reviewed and noncontributory) Medications and Allergies Allergies Allergy/AdvReac Type Severity Reaction Status Date / Time aspirin Allergy Swelling Verified 10/23/18 17:48 latex Allergy rash, Verified 10/23/18 17:48 blisters Penicillins Allergy Unknown Verified 10/23/18 17:48 sulfamethoxazole Allergy Swelling Verified 10/23/18 17:48 [From Bactrim] trimethoprim [From Bactrim] Allergy Swelling Verified 10/23/18 17:48 vancomycin AdvReac Itching Verified 10/23/18 17:48 Home Medications Medication Instructions Recorded Confirmed Last Taken Type Carbidopa/Levodopa ER 50-200 1 each PO QID 04/30/14 11/04/17 11/04/17 History [Sinemet ER 50/200] 1 Amantadine HCl [Amantadine] 200 mg PO DAILY 08/06/17 11/04/17 11/03/17 History 200mg Ascorbic Acid [Vitamin C] 300 mg PO DAILY 08/06/17 11/04/17 11/03/17 History 300mg Docusate Sodium [Colace CAP] 100 mg PO BID PRN 08/06/17 11/04/17 10/13/17 Hist ory Folic Acid [Folvite] 25 mg PO DAILY 08/06/17 11/04/17 11/03/17 History 25mg Furosemide [Lasix TAB] 20 mg PO QDAY 08/06/17 11/04/17 11/03/17 History 20mg Ubidecarenone [Co Q-10] 100 mg PO DAILY 08/06/17 11/04/17 11/03/17 History 100mg Cholecalciferol (Vitamin D3) 50,000 unit PO 1XW 10/14/17 11/04/17 11/03/17 History [Vitamin D3] 50,000 units cloNIDine [Catapres] 0.2 mg PO PRN PRN 10/14/17 11/04/17 11/03/17 History 0.2mg Apixaban [Eliquis] 5 mg PO BID 14 Days #28 tablet 11/04/17 Unknown Rx HYDROcodone/ACETAMINOPHEN [[place] 1 each PO Q6H 2 Days #8 tablet 11/04/17 Unknown Rx 5-325 Tablet] Active Meds: Active Medications Acetaminophen (Tylenol) 650 mg PO Q4H PRN PRN Reason: Pain MILD(1-3)/Fever >100.5/VELA Al Hydrox/Mg Hydrox/Simethicone (Alum-Mag Hydrox-Simeth [id number]/5ml) 30 ml PO Q4H PRN PRN Reason: Indigestion Amlodipine Besylate (Norvasc) 10 mg PO QDAY [facility] Last Admin: 10/24/18 05:19 Dose: 10 mg Documented by: Carvedilol (Coreg) 25 mg PO BID [facility] Last Admin: 10/24/18 05:20 Dose: 25 mg Documented by: Clonidine HCl (Catapres) 0.2 mg PO Q4H PRN PRN Reason: Blood Pressure Docusate Sodium (Colace) 100 mg PO BID [facility] Last Admin: 10/24/18 10:17 Dose: 100 mg Documented by: Famotidine (Pepcid) 10 mg PO BID [facility] Last Admin: 10/24/18 10:17 Dose: 10 mg Documented by: Heparin Sodium (Porcine) (Heparin) 5,000 unit SUB-Q Q12HR [facility] Last Admin: 10/24/18 10:17 Dose: 5,000 unit Documented by: Sodium Chloride (Nacl 0.9% 1000 Ml) 1,000 mls @ 75 mls/hr IV DIRECT JUSTIN Morphine Sulfate (Morphine) 1 mg IV Q4H PRN PRN Reason: Pain, Moderate (4-6) Nitroglycerin (Nitrostat) 0.4 mg SL .Q5MIN PRN PRN Reason: Chest Pain Ondansetron HCl (Zofran) 4 mg IV Q8H PRN PRN Reason: Nausea And Vomiting Sodium Chloride (Sodium Chloride Flush Syringe 10 Ml) 10 ml IV BID [facility] Last Admin: 10/24/18 10:17 Dose: 10 ml Documented by: Sodium Chloride (Sodium Chloride Flush Syringe 10 Ml) 10 ml IV PRN PRN PRN Reason: LINE FLUSH Review of Systems All systems: negative Constitutional: fatigue, weakness Cardiovascular: chest pain, leg edema Exam - Vital Signs Vital signs: Vital Signs Temp Pulse Resp BP Pulse Ox 98.6 F 91 H 18 126/63 100 10/23/18 17:55 10/23/18 17:55 10/23/18 17:55 10/23/18 17:55 10/23/18 17:55 - General Appearance General appearance: appears stated age, chronically ill, frail EENT: ATNC, PERRL Neck: Present: neck supple, trachea midline Respiratory: Clear to Ascultation, Normal Exam Heart: regular, normal heart rate, S1S2 Gastrointestinal: Present: normal, normoactive bowel sounds Integumentary: no rash, warm and dry Neurologic: other (Baseline tremors noted secondary to her Parkinson's disease.) Musculoskeletal: Present: other (bilateral lower extremity edema) Psychiatric: cooperative Results - Lab Results 10/23/18 19:18 10/23/18 19:18 Most recent lab results Calcium 9.4 mg/dL (8.4-10.2) 10/23/18 19:18 Assessment and Plan - Patient Problems (1) CKD (chronic kidney disease), stage V Current Visit: Yes Status: Chronic Plan to address problem: Patient has right upper extremity AV fistula which seems to have matured at this time with appropriate thrill and bruit noted on examination. There is no acute indications for initiating renal replacement therapy at present time. Serum creatinine is actually lower than it has been on previous lab studies. I am concerned that this may also be in the setting of worsening cachexia and overall decreased appetite and loss of muscle mass. (2) Hypertensive chronic kidney disease with stage 1 through stage 4 chronic kidney disease, or unspecified chronic kidney disease Current Visit: Yes Status: Chronic Plan to address problem: Continue current regimen and will monitor closely. Placed on amlodipine 10 mg. (3) Elevated troponin Current Visit: Yes Status: Acute Plan to address problem: Mild elevations noted in this patient with advanced chronic kidney disease. Chest pain symptoms have resolved at this time. Further management and recommendations per cardiology. (4) Anemia in CKD (chronic kidney disease) Current Visit: Yes Status: Chronic Qualifiers: Chronic kidney disease stage: stage 5, not on chronic dialysis Qualified Code(s): N18.5 - Chronic kidney disease, stage 5; D63.1 - Anemia in chronic kidney disease Plan to address problem: Hemoglobin levels are stable at this time. Would assess iron studies at this time. There is no acute indications for RADHA therapy at present time. We'll continue to monitor. (5) Localized edema Current Visit: Yes Status: Chronic Plan to address problem: Will restart patient on home regimen of Lasix 40 mg by mouth daily.
--- NOTE | 2018-10-24 14:34 | Consultation ---
History of Present Illness Consult date: 10/24/18 Consult reason: chest pain History of present illness: The patient is a 78-year-old woman who resides in snf with advanced Parkinson's disease, chronic hypertension and chronic kidney disease. Last year, a left upper extremity AV graft was placed, but patient has not yet been initiated into hemodialysis. Review of records does not indicate any significant chronic cardiac disease. She is admitted to the hospital with poorly cauterized complaints of epigastric pain, radiating to the chest. Symptoms were nonexertional. EKG in the hospital was sinus rhythm with right bundle branch block, no ischemic changes. Chest x- ray showed an elevated left hemidiaphragm, but no evidence of interstitial edema or heart failure. The patient is currently on the telemetry unit, appears frail and chronically ill. Past History Past Medical History: arthritis, hypertension, other (Parkinson's disease, colon cancer, chronic decubitus ulcers) Past Surgical History: hysterectomy, Other (colon resection, right shoulder surgery) Social history: no significant social history (she denies tobacco, alcohol or illicit drug use) Family history: other (reviewed and noncontributory) Medications and Allergies Allergies Allergy/AdvReac Type Severity Reaction Status Date / Time aspirin Allergy Swelling Verified 10/23/18 17:48 latex Allergy rash, Verified 10/23/18 17:48 blisters Penicillins Allergy Unknown Verified 10/23/18 17:48 sulfamethoxazole Allergy Swelling Verified 10/23/18 17:48 [From Bactrim] trimethoprim [From Bactrim] Allergy Swelling Verified 10/23/18 17:48 vancomycin AdvReac Itching Verified 10/23/18 17:48 Home Medications Medication Instructions Recorded Confirmed Last Taken Type Carbidopa/Levodopa ER 50-200 1 each PO QID 04/30/14 11/04/17 11/04/17 History [Sinemet ER 50/200] 1 Amantadine HCl [Amantadine] 200 mg PO DAILY 08/06/17 11/04/17 11/03/17 History 200mg Ascorbic Acid [Vitamin C] 300 mg PO DAILY 08/06/17 11/04/17 11/03/17 History 300mg Docusate Sodium [Colace CAP] 100 mg PO BID PRN 08/06/17 11/04/17 10/13/17 History Folic Acid [Folvite] 25 mg PO DAILY 08/06/17 11/04/17 11/03/17 History 25mg Furosemide [Lasix TAB] 20 mg PO QDAY 08/06/17 11/04/17 11/03/17 History 20mg Ubidecarenone [Co Q-10] 100 mg PO DAILY 08/06/17 11/04/17 11/03/17 History 100mg Cholecalciferol (Vitamin D3) 50,000 unit PO 1XW 10/14/17 11/04/17 11/03/17 History [Vitamin D3] 50,000 units cloNIDine [Catapres] 0.2 mg PO PRN PRN 10/14/17 11/04/17 11/03/17 History 0.2mg Apixaban [Eliquis] 5 mg PO BID 14 Days #28 tablet 11/04/17 Unknown Rx HYDROcodone/ACETAMINOPHEN [[place] 1 each PO Q6H 2 Days #8 tablet 11/04/17 Unknown Rx 5-325 Tablet] Active Meds: Active Medications Acetaminophen (Tylenol) 650 mg PO Q4H PRN PRN Reason: Pain MILD(1-3)/Fever >100.5/VELA Al Hydrox/Mg Hydrox/Simethicone (Alum-Mag Hydrox-Simeth [id number]/5ml) 30 ml PO Q4H PRN PRN Reason: Indigestion Amlodipine Besylate (Norvasc) 10 mg PO QDAY ON LICENSE OF [facility] Last Admin: 10/24/18 05:19 Dose: 10 mg Documented by: Carvedilol (Coreg) 25 mg PO BID ON LICENSE OF [facility] Last Admin: 10/24/18 05:20 Dose: 25 mg Documented by: Clonidine HCl (Catapres) 0.2 mg PO Q4H PRN PRN Reason: Blood Pressure Docusate Sodium (Colace) 100 mg PO BID ON LICENSE OF [facility] Last Admin: 10/24/18 10:17 Dose: 100 mg Documented by: Famotidine (Pepcid) 10 mg PO BID ON LICENSE OF [facility] Last Admin: 10/24/18 10:17 Dose: 10 mg Documented by: Furosemide (Lasix) 40 mg PO QDAY ON LICENSE OF [facility] Heparin Sodium (Porcine) (Heparin) 5,000 unit SUB-Q Q12HR ON LICENSE OF [facility] Last Admin: 10/24/18 10:17 Dose: 5,000 unit Documented by: Sodium Chloride (Nacl 0.9% 1000 Ml) 1,000 mls @ 75 mls/hr IV DIRECT JUSTIN Morphine Sulfate (Morphine) 1 mg IV Q4H PRN PRN Reason: Pain, Moderate (4-6) Nitroglycerin (Nitrostat) 0.4 mg SL .Q5MIN PRN PRN Reason: Chest Pain Ondansetron HCl (Zofran) 4 mg IV Q8H PRN PRN Reason: Nausea And Vomiting Sodium Chloride (Sodium Chloride Flush Syringe 10 Ml) 10 ml IV BID ON LICENSE OF [facility] Last Admin: 10/24/18 10:17 Dose: 10 ml Documented by: Sodium Chloride (Sodium Chloride Flush Syringe 10 Ml) 10 ml IV PRN PRN PRN Reason: LINE FLUSH Review of Systems ROS unobtainable: due to mental status Physical Examination Vital Signs Temp Pulse Resp BP Pulse Ox 98.6 F 91 H 18 126/63 100 10/23/18 17:55 10/23/18 17:55 10/23/18 17:55 10/23/18 17:55 10/23/18 17:55 General appearance: no acute distress, cachectic HEENT: Positive: PERRL Neck: Positive: neck supple Cardiac: Positive: Reg Rate and Rhythm Lungs: Positive: Decreased Breath Sounds Neuro: Positive: Weakness Abdomen: Positive: Soft Female genitourinary: deferred Skin: Positive: Clear Extremities: Absent: edema Results 10/23/18 19:18 10/23/18 19:18 Lipids 10/23/18 Range/Units 19:18 Triglycerides 66 (2-149) mg/dL Cholesterol 173 (50-199) mg/dL HDL Cholesterol 65 H (40-59) mg/dL Cholesterol/HDL Ratio 2.66 % CBC 10/23/18 Range/Units 19:18 WBC 5.0 (4.5-11.0) K/mm3 RBC 4.10 (3.65-5.03) M/mm3 Hgb 10.4 (10.1-14.3) gm/dl Hct 32.9 (30.3-42.9) % Plt Count 276 (140-440) K/mm3 Lymph # 1.5 (1.2-5.4) K/mm3 [place] # 0.5 (0.0-0.8) K/mm3 Eos # 0.0 (0.0-0.4) K/mm3 Baso # 0.0 (0.0-0.1) K/mm3 Comprehensive Metabolic Panel 10/23/18 Range/Units 19:18 Sodium 142 (137-145) mmol/L Potassium 3.7 (3.6-5.0) mmol/L Chloride 106.2 (98-107) mmol/L Carbon Dioxide 21 L (22-30) mmol/L BUN 39 H (7-17) mg/dL Creatinine 1.5 H (0.7-1.2) mg/dL Glucose 93 (65-100) mg/dL Calcium 9.4 (8.4-10.2) mg/dL EKG interpretations - Telemetry EKG Rhythm: Sinus Rhythm (with right bundle branch block) Assessment and Plan - Patient Problems (1) Chest pain Current Visit: Yes Status: Acute Plan to address problem: Chest pain is atypical, doubt angina pectoris. The patient is frail, elderly, chronically ill-appearing with multiple comorbidities. She is not a candidate for aggressive cardiac workup and therapies. We will treat conservatively.
[2018-10-24 15:31] LABS: Iron 38 ug/dL (37-170); Total Iron Binding Capacity 170 mcg/dL (250-450)
[2018-10-24] MEDS ORDERED: DULCOLAX PR PRN (22:00)
[2018-10-25] MEDS: SINEMET PO SCH ×5 (03:15→22:06)
[2018-10-25] MEDS: PEPCID PO SCH ×3 (03:15→22:07)
[2018-10-25] MEDS ORDERED: PEPCID PO SCH (07:57)
[2018-10-25 09:42] LABS: Calcium 8.8 mg/dL (8.4-10.2)
[2018-10-25] MEDS: COLACE PO SCH ×2 (10:13→22:06)
[2018-10-25] MEDS: COREG PO SCH ×2 (10:13→22:07)
[2018-10-25] MEDS: LASIX PO SCH (10:14)
[2018-10-25] MEDS: SODIUM CHLORIDE FLUSH SYRINGE 10 ML IV SCH ×2 (10:14→22:08)
[2018-10-25] MEDS: NORVASC PO SCH (10:14)
[2018-10-25] MEDS: HEPARIN SUB-Q SCH ×2 (10:14→22:07)
--- NOTE | 2018-10-25 11:16 | Progress Note ---
Assessment and Plan - Patient Problems (1) CKD (chronic kidney disease), stage V Current Visit: Yes Status: Chronic Plan to address problem: Patient has right upper extremity AV fistula which seems to have matured at this time with appropriate thrill and bruit noted on examination. There is no acute indications for initiating renal replacement therapy at present time. Serum creatinine is actually lower than it has been on previous lab studies. I am concerned that this may also be in the setting of worsening cachexia and overall decreased appetite and loss of muscle mass. There is no acute indications for dialysis initiation at this point. Overall renal function is stable. Patient needs to follow up with Dr Banerjee, nephrology, 1-2 weeks post discharge. (2) Hypertensive chronic kidney disease with stage 1 through stage 4 chronic kidney disease, or unspecified chronic kidney disease Current Visit: Yes Status: Chronic Plan to address problem: Continue current regimen and will monitor closely. Placed on amlodipine 10 mg. (3) Elevated troponin Current Visit: Yes Status: Acute Plan to address problem: Mild elevations noted in this patient with advanced chronic kidney disease. Chest pain symptoms have resolved at this time. Conservative management per cardiology recommendations. (4) Anemia in CKD (chronic kidney disease) Current Visit: Yes Status: Chronic Qualifiers: Chronic kidney disease stage: stage 5, not on chronic dialysis Qualified Code(s): N18.5 - Chronic kidney disease, stage 5; D63.1 - Anemia in chronic kidney disease Plan to address problem: Hemoglobin levels are stable at this time. Would assess iron studies at this time. There is no acute indications for RADHA therapy at present time. We'll continue to monitor. (5) Localized edema Current Visit: Yes Status: Chronic Plan to address problem: Have restarted patient on home regimen of Lasix 40 mg by mouth daily. (6) Metabolic acidosis Current Visit: Yes Status: Acute Plan to address problem: Will add on sodium bicarb 650 mg PO BID. Subjective Date of service: 10/25/18 Interval history: No acute issues overnight. Overall renal function is stable. Cardiology recommendations noted and no plan for aggressive cardiac measures at present time other than optimal medical management based on patient's multiple comorbidites. Objective - Vital Signs Vital signs: Vital Signs - 12hr 10/25/18 10/25/18 00:26 04:47 Temperature 98.1 F 98.2 F Pulse Rate 77 64 Respiratory 18 18 Rate Blood Pressure 160/59 131/59 O2 Sat by Pulse 99 98 Oximetry - General Appearance General appearance: chronically ill, frail EENT: ATNC, PERRL Neck: no JVD, no thyromegaly Respiratory: Present: Clear to Ascultation Cardiology: regular, S1S2 Gastrointestinal: normal, normoactive bowel sounds Integumentary: no rash, warm and dry Neurologic: no focal deficit, other (baseline tremors from underlying parksinson disease ) Psychiatric: cooperative - Lab 10/23/18 19:18 10/25/18 08:31 Most recent lab results Calcium 8.8 mg/dL (8.4-10.2) 10/25/18 08:31 - Allied health notes Allied health notes reviewed: nursing Medications & Allergies - Medications Allergies/Adverse Reactions: Allergies aspirin Allergy (Verified 10/23/18 17:48) Swelling latex Allergy (Verified 10/23/18 17:48) rash, blisters Penicillins Allergy (Verified 10/23/18 17:48) Unknown sulfamethoxazole [From Bactrim] Allergy (Verified 10/23/18 17:48) Swelling trimethoprim [From Bactrim] Allergy (Verified 10/23/18 17:48) Swelling vancomycin Adverse Reaction (Verified 10/23/18 17:48) Itching STARTED ITCHING TO AXILLA AND NECK AFTER RECEIVING VANCOMYCIN IV. Home Medications: Home Medications Medication Instructions Recorded Confirmed Last Taken Type Carbidopa/Levodopa ER 50-200 1 each PO QID 04/30/14 10/24/18 11/04/17 History [Sinemet ER 50/200] 1 Amantadine HCl [Amantadine] 200 mg PO DAILY 08/06/17 10/24/18 11/03/17 History 200mg Ascorbic Acid [Vitamin C] 300 mg PO DAILY 08/06/17 10/24/18 11/03/17 History 300mg Docusate Sodium [Colace CAP] 100 mg PO BID PRN 08/06/17 10/24/18 10/13/17 History Folic Acid [Folvite] 25 mg PO DAILY 08/06/17 10/24/18 11/03/17 History 25mg Furosemide [Lasix TAB] 20 mg PO QDAY 08/06/17 10/24/18 11/03/17 History 20mg Ubidecarenone [Co Q-10] 100 mg PO DAILY 01/05/1410/24/18 11/03/17 History 100mg Cholecalciferol (Vitamin D3) 50,000 unit PO 1XW 10/14/17 10/24/18 11/03/17 History [Vitamin D3] 50,000 units cloNIDine [Catapres] 0.2 mg PO PRN PRN 10/14/17 10/24/18 11/03/17 History 0.2mg Apixaban [Eliquis] 5 mg PO BID 14 Days #28 tablet 11/04/17 10/24/18 Unknown Rx HYDROcodone/ACETAMINOPHEN [[place] 1 each PO Q6H 2 Days #8 tablet 11/04/17 10/24/18 Unknown Rx 5-325 Tablet] Active Medications: Generic Name Dose Route Start Last Admin Trade Name Freq PRN Reason Stop Dose Admin Acetaminophen 650 mg 10/24/18 03:04 Tylenol PO Q4H PRN Pain MILD(1-3)/Fever >100.5/VELA Al Hydrox/Mg Hydrox/Simethicone 30 ml 10/24/18 03:04 Alum-Mag Hydrox-Simeth [phone]/5ml PO Q4H PRN Indigestion Amlodipine Besylate 10 mg 10/24/18 03:47 10/25/18 10:14 Norvasc PO 10 mg QDAY JUSTIN Administration Bisacodyl 10 mg 10/24/18 22:00 Dulcolax [place] QDAY PRN Constipation Carbidopa/Levodopa 2 each 10/25/18 01:24 10/25/18 10:14 Sinemet PO 2 each QID JUSTIN Administration Carvedilol 25 mg 10/24/18 04:00 10/25/18 10:13 Coreg PO 25 mg BID JUSTIN Administration Clonidine HCl 0.2 mg 10/24/18 03:47 Catapres PO Q4H PRN Blood Pressure Docusate Sodium 100 mg 10/24/18 10:00 10/25/18 10:13 Colace PO 100 mg BID JUSTIN Administration Famotidine 10 mg 10/25/18 10:00 10/25/18 10:13 Pepcid PO 10 mg BID JUSTIN Administration Furosemide 40 mg 10/25/18 10:00 10/25/18 10:14 Lasix PO 40 mg QDAY JUSTIN Administration Heparin Sodium (Porcine) 5,000 unit 10/24/18 10:00 10/25/18 10:14 Heparin SUB-Q 5,000 unit Q12HR JUSTIN Administration Sodium Chloride 1,000 mls @ 75 mls/hr 10/24/18 04:00 Nacl 0.9% 1000 Ml IV DIRECT JUSTIN Morphine Sulfate 1 mg 10/24/18 03:04 Morphine IV Q4H PRN Pain, Moderate (4-6) Nitroglycerin 0.4 mg 10/24/18 03:07 Nitrostat SL .Q5MIN PRN Chest Pain Ondansetron HCl 4 mg 10/24/18 03:04 Zofran IV Q8H PRN Nausea And Vomiting Sodium Chloride 10 ml 10/24/18 10:00 10/25/18 10:14 Sodium Chloride Flush Syringe 10 Ml IV 10 ml BID JUSTIN Administration Sodium Chloride 10 ml 10/24/18 03:04 Sodium Chloride Flush Syringe 10 Ml IV PRN PRN LINE FLUSH
--- NOTE | 2018-10-25 12:23 | Progress Note ---
Assessment and Plan Assessment and plan: Chest pain with mildly elevated troponin -Cardiology was consulted and recommended current management -Patient is frail and doesn't need aggressive cardiac work up HTN - The patient is going up and down, could be autonomic dysfunction - Continue his medications Parkinson's disease -Resume home meds Chronic decubitus ulcers -Wound care nurse consulted ESRD -S/P dialysis catheter -Consult nephrology and recommended no [employer] -Cr is actually decreased from baseline DVT prophylaxis with heparin DVT; DC back to SNF likey in AM if stable. History Interval history: Patient was seen and evaluated this morning, patient said she is not feeling well, sleepy. Hospitalist Physical - Physical exam Narrative exam: Not in cardiopulmonary distress. The patient appeared well nourished and normally developed. Vital signs as documented. Head exam is unremarkable. No scleral icterus . Neck is without jugular venous distension, thyromegaly, or carotid bruits. Lungs are clear to auscultation. Cardiac exam reveals regular rate and Rhythm. Abdominal exam reveals normal bowel sounds. Extremities are nonedematous. BUSINESS TEACHER: Alert and oriented 3. No focal weakness. - Constitutional Vitals: Temp Pulse Resp BP Pulse Ox 98.2 F 65 18 131/59 98 10/25/18 04:47 10/25/18 10:00 10/25/18 04:47 10/25/18 04:47 10/25/18 04:47 General appearance: Present: no acute distress, cachectic Results - Labs CBC & Chem 7: 10/23/18 19:18 10/25/18 08:31 Labs: Laboratory Last Values WBC 5.0 K/mm3 (4.5-11.0) 10/23/18 19:18 RBC 4.10 M/mm3 (3.65-5.03) 10/23/18 19:18 Hgb 10.4 gm/dl (10.1-14.3) 10/23/18 19:18 Hct 32.9 % (30.3-42.9) 10/23/18 19:18 MCV 80 fl (79-97) 10/23/18 19:18 MCH 25 pg (28-32) L 10/23/18 19:18 MCHC 32 % (30-34) 10/23/18 19:18 RDW 20.1 % (13.2-15.2) H 10/23/18 19:18 Plt Count 276 K/mm3 (140-440) 10/23/18 19:18 Lymph % (Auto) 30.3 % (13.4-35.0) 10/23/18 19:18 [place] % (Auto) 10.5 % (0.0-7.3) H 10/23/18 19:18 Eos % (Auto) 0.8 % (0.0-4.3) 10/23/18 19:18 Baso % (Auto) 0.3 % (0.0-1.8) 10/23/18 19:18 Lymph # 1.5 K/mm3 (1.2-5.4) 10/23/18 19:18 [place] # 0.5 K/mm3 (0.0-0.8) 10/23/18 19:18 Eos # 0.0 K/mm3 (0.0-0.4) 10/23/18 19:18 Baso # 0.0 K/mm3 (0.0-0.1) 10/23/18 19:18 Seg Neutrophils % 58.1 % (40.0-70.0) 10/23/18 19:18 Seg Neutrophils # 2.9 K/mm3 (1.8-7.7) 10/23/18 19:18 Sodium 140 mmol/L (137-145) 10/25/18 08:31 Potassium 4.4 mmol/L (3.6-5.0) 10/25/18 08:31 Chloride 110.6 mmol/L (98-107) H 10/25/18 08:31 Carbon Dioxide 17 mmol/L (22-30) L 10/25/18 08:31 Anion Gap 17 mmol/L 10/25/18 08:31 BUN 32 mg/dL (7-17) H 10/25/18 08:31 Creatinine 1.5 mg/dL (0.7-1.2) H 10/25/18 08:31 Estimated GFR 41 ml/min 10/25/18 08:31 BUN/Creatinine Ratio 21 % 10/25/18 08:31 Glucose 93 mg/dL (65-100) 10/25/18 08:31 Calcium 8.8 mg/dL (8.4-10.2) 10/25/18 08:31 Iron 38 ug/dL (37-170) 10/24/18 14:20 TIBC 170 mcg/dL (250-450) L 10/24/18 14:20 Ferritin 211.2 ng/mL (13.0-400.0) 10/24/18 14:20 Troponin T 0.045 ng/mL (0.00-0.029) H 10/24/18 00:36 Triglycerides 66 mg/dL (2-149) 10/23/18 19:18 Cholesterol 173 mg/dL (50-199) 10/23/18 19:18 LDL Cholesterol Direct 104 mg/dL (50-130) 10/23/18 19:18 HDL Cholesterol 65 mg/dL (40-59) H 10/23/18 19:18 Cholesterol/HDL Ratio 2.66 % 10/23/18 19:18 Active Medications - Current Medications Current Medications: Generic Name Dose Route Start Last Admin Trade Name Freq PRN Reason Stop Dose Admin Acetaminophen 650 mg 10/24/18 03:04 Tylenol PO Q4H PRN Pain MILD(1-3)/Fever >100.5/VELA Al Hydrox/Mg Hydrox/Simethicone 30 ml 10/24/18 03:04 Alum-Mag Hydrox-Simeth [id number]/5ml PO Q4H PRN Indigestion Amlodipine Besylate 10 mg 10/24/18 03:47 10/25/18 10:14 Norvasc PO 10 mg QDAY JUSTIN Administration Bisacodyl 10 mg 10/24/18 22:00 Dulcolax [place] QDAY PRN Constipation Carbidopa/Levodopa 2 each 10/25/18 01:24 10/25/18 10:14 Sinemet PO 2 each QID JUSTIN Administration Carvedilol 25 mg 10/24/18 04:00 10/25/18 10:13 Coreg PO 25 mg BID JUSTIN Administration Clonidine HCl 0.2 mg 10/24/18 03:47 Catapres PO Q4H PRN Blood Pressure Docusate Sodium 100 mg 10/24/18 10:00 10/25/18 10:13 Colace PO 100 mg BID JUSTIN Administration Famotidine 10 mg 10/25/18 10:00 10/25/18 10:13 Pepcid PO 10 mg BID JUSTIN Administration Furosemide 40 mg 10/25/18 10:00 10/25/18 10:14 Lasix PO 40 mg QDAY JUSTIN Administration Heparin Sodium (Porcine) 5,000 unit 10/24/18 10:00 10/25/18 10:14 Heparin SUB-Q 5,000 unit Q12HR JUSTIN Administration Sodium Chloride 1,000 mls @ 75 mls/hr 10/24/18 04:00 Nacl 0.9% 1000 Ml IV DIRECT JUSTIN Morphine Sulfate 1 mg 10/24/18 03:04 Morphine IV Q4H PRN Pain, Moderate (4-6) Nitroglycerin 0.4 mg 10/24/18 03:07 Nitrostat SL .Q5MIN PRN Chest Pain Ondansetron HCl 4 mg 10/24/18 03:04 Zofran IV Q8H PRN Nausea And Vomiting Sodium Bicarbonate 650 mg 10/25/18 22:00 Sodium Bicarbonate PO BID JUSTIN Sodium Chloride 10 ml 10/24/18 10:00 10/25/18 10:14 Sodium Chloride Flush Syringe 10 Ml IV 10 ml BID JUSTIN Administration Sodium Chloride 10 ml 10/24/18 03:04 Sodium Chloride Flush Syringe 10 Ml IV PRN PRN LINE FLUSH Nutrition/Malnutrition Assess - Dietary Evaluation Nutrition/Malnutrition Findings: Nutrition Notes Start: 10/24/18 12:57 Freq: Status: Active Protocol: Document 10/24/18 12:58 OL (Rec: 10/24/18 13:06 OL [id number]) Nutrition Notes Need for Assessment generated from: regional property manager,MST Initial or Follow up Assessment Current Diagnosis Decubitus(Pressure Ulcer), Hypertension Other Pertinent Diagnosis Parkinson's Current Diet NPO Labs/Tests BUN 39 Cr 1.5 Pertinent Medications Reviewed Height 5 ft 7 in Weight 58.967 kg [place] Body Weight (kg) 61.36 BMI 20.3 Weight Status Appropriate Subjective/Other Information RD screen for malnutrition risk and skin risk. Freddy score 12. Pt. with chronic decubitis ulcers. NPO at this time. Pt. sleeping soundly. Burn Absent Trauma Absent #1 Nutrition Diagnosis Increased nutrient needs ( specify in comment below) Comments: protein Etiology wound healing As Evidenced by Signs and Symptoms pt. with chronic wounds Is patient on ventilator? No Is Patient Ambulatory and/or Out of Bed No REE-([facility]-confined to bed) 1341.348 Kcal/Kg value to use for calculation 30 Approximate Energy Requirements Using 1769 kcal/Kg Calculation Used for Recommendations Kcal/kg Additional Notes protein (1.2-1.5g/kg): 71-88g daily fluid: 1mL/kcal or per MD Nutrition Intervention Change Diet Order: Advance when medically feasible. Add Supplement/Snack (indicate name/kcal Ensure Enlive daily once diet /protein ) advanced Provides kCal: 350 Provides Protein (gm) 20 Goal #1 Diet advancement when medically feasible. Goal #2 Wound healing Anticipated Discharge Needs: Unable to determine at this time Follow-Up By: 10/26/18 Additional Comments f/u: diet advancement
--- NOTE | 2018-10-25 13:52 | Progress Note ---
Assessment and Plan - Patient Problems (1) Chest pain Current Visit: Yes Status: Acute Plan to address problem: Due to severe comorbidities, frail, cachectic status, patient is not a candidate for aggressive cardiac evaluation and therapies. Recommend conservative management. Subjective Date of service: 10/25/18 Interval history: Patient is very frail and cachectic, with advanced Parkinson's. Objective Vital Signs Temp Pulse Resp BP Pulse Ox 10/25/18 10:00 65 10/25/18 04:47 98.2 F 64 18 131/59 98 10/25/18 00:26 98.1 F 77 18 160/59 99 10/24/18 22:00 63 10/24/18 19:26 98.2 F 74 18 148/67 100 - Physical Examination General: Cachectic HEENT: Positive: PERRL Neck: Positive: neck supple Cardiac: Positive: Reg Rate and Rhythm Lungs: Positive: Decreased Breath Sounds Neuro: Positive: Weakness Abdomen: Positive: Soft Skin: Positive: Clear Extremities: Absent: edema - Labs and Meds Comprehensive Metabolic Panel 10/25/18 Range/Units 08:31 Sodium 140 (137-145) mmol/L Potassium 4.4 (3.6-5.0) mmol/L Chloride 110.6 H (98-107) mmol/L Carbon Dioxide 17 L (22-30) mmol/L BUN 32 H (7-17) mg/dL Creatinine 1.5 H (0.7-1.2) mg/dL Glucose 93 (65-100) mg/dL Calcium 8.8 (8.4-10.2) mg/dL - Allied health notes Allied health notes reviewed: nursing
[2018-10-25] MEDS: SODIUM BICARBONATE PO SCH (22:07)
[2018-10-26 08:19] LABS: Calcium 8.7 mg/dL (8.4-10.2)
[2018-10-26] MEDS: COLACE PO SCH ×2 (10:17→21:15)
[2018-10-26] MEDS: SODIUM BICARBONATE PO SCH ×2 (10:17→21:15)
[2018-10-26] MEDS: SINEMET PO SCH ×4 (10:17→21:35)
[2018-10-26] MEDS: PEPCID PO SCH ×2 (10:17→21:15)
[2018-10-26] MEDS: COREG PO SCH ×2 (10:18→21:16)
[2018-10-26] MEDS: NORVASC PO SCH (10:18)
[2018-10-26] MEDS: LASIX PO SCH (10:18)
[2018-10-26] MEDS: SODIUM CHLORIDE FLUSH SYRINGE 10 ML IV SCH ×2 (10:19→21:15)
[2018-10-26] MEDS: HEPARIN SUB-Q SCH ×2 (10:19→21:15)
--- NOTE | 2018-10-26 12:29 | Progress Note ---
Assessment and Plan - Patient Problems (1) Chest pain Current Visit: Yes Status: Acute Plan to address problem: Due to severe comorbidities, frail, cachectic status, patient is not a candidate for aggressive cardiac evaluation and therapies. Recommend conservative management. Subjective Date of service: 10/26/18 Interval history: Patient is very frail and cachectic, with advanced Parkinson's. Objective Vital Signs Temp Pulse Pulse Resp BP BP Pulse Ox 10/26/18 10:18 66 148/56 10/26/18 09:00 66 60 20 10/26/18 08:00 98.1 F 66 20 148/56 97 10/26/18 04:00 98.5 F 41 L 18 152/59 100 10/25/18 23:33 98.0 F 69 16 170/72 100 10/25/18 20:40 98 H 10/25/18 19:38 97.9 F 69 18 167/69 100 10/25/18 18:07 97.1 F L 98 H 18 120/57 97 - Physical Examination General: Cachectic HEENT: Positive: PERRL Neck: Positive: neck supple Cardiac: Positive: Reg Rate and Rhythm Lungs: Positive: Decreased Breath Sounds Neuro: Positive: Weakness Abdomen: Positive: Soft Skin: Positive: Clear Extremities: Absent: edema - Labs and Meds Comprehensive Metabolic Panel 10/26/18 Range/Units 07:11 Sodium 147 H (137-145) mmol/L Potassium 3.6 (3.6-5.0) mmol/L Chloride 115.7 H (98-107) mmol/L Carbon Dioxide 22 (22-30) mmol/L BUN 28 H (7-17) mg/dL Creatinine 1.5 H (0.7-1.2) mg/dL Glucose 96 (65-100) mg/dL Calcium 8.7 (8.4-10.2) mg/dL - Allied health notes Allied health notes reviewed: nursing
--- NOTE | 2018-10-26 13:21 | Progress Note ---
Assessment and Plan - Patient Problems (1) CKD (chronic kidney disease), stage V Current Visit: Yes Status: Chronic Plan to address problem: Patient has right upper extremity AV fistula which seems to have matured at this time with appropriate thrill and bruit noted on examination. There is no acute indications for initiating renal replacement therapy at present time. Serum creatinine is actually lower than it has been on previous lab studies. I am concerned that this may also be in the setting of worsening cachexia and overall decreased appetite and loss of muscle mass. There is no acute indications for dialysis initiation at this point. Overall renal function is stable. Patient needs to follow up with Dr Banerjee, nephrology, 1-2 weeks post discharge. From a renal standpoint patient is stable for discharge. (2) Hypertensive chronic kidney disease with stage 1 through stage 4 chronic kidney disease, or unspecified chronic kidney disease Current Visit: Yes Status: Chronic Plan to address problem: Continue current regimen and will monitor closely. Placed on amlodipine 10 mg. (3) Elevated troponin Current Visit: Yes Status: Acute Plan to address problem: Mild elevations noted in this patient with advanced chronic kidney disease. Chest pain symptoms have resolved at this time. Conservative management per cardiology recommendations. (4) Anemia in CKD (chronic kidney disease) Current Visit: Yes Status: Chronic Qualifiers: Chronic kidney disease stage: stage 5, not on chronic dialysis Qualified Code(s): N18.5 - Chronic kidney disease, stage 5; D63.1 - Anemia in chronic kidney disease Plan to address problem: Hemoglobin levels are stable at this time. Would assess iron studies at this time. There is no acute indications for RADHA therapy at present time. We'll continue to monitor. (5) Localized edema Current Visit: Yes Status: Chronic Plan to address problem: Have restarted patient on home regimen of Lasix 40 mg by mouth daily. (6) Metabolic acidosis Current Visit: Yes Status: Acute Plan to address problem: Will add on sodium bicarb 650 mg PO BID. Subjective Date of service: 10/26/18 Interval history: No acute issues overnight. Labs noted and renal function remains stable. Objective - Vital Signs Vital signs: Vital Signs - 12hr 10/26/18 10/26/18 10/26/18 04:00 08:00 09:00 Temperature 98.5 F 98.1 F Pulse Rate 41 L 66 66 Pulse Rate [ 60 Apical] Respiratory 18 20 20 Rate Blood Pressure 152/59 Blood Pressure 148/56 [Right] O2 Sat by Pulse 100 97 Oximetry 10/26/18 10:18 Temperature Pulse Rate 66 Pulse Rate [ Apical] Respiratory Rate Blood Pressure 148/56 Blood Pressure [Right] O2 Sat by Pulse Oximetry - General Appearance General appearance: cachectic, chronically ill, frail EENT: ATNC, PERRL Neck: no JVD, no thyromegaly Respiratory: Present: Clear to Ascultation Cardiology: regular Gastrointestinal: normal, normoactive bowel sounds Integumentary: warm and dry Neurologic: other (baseline tremors from h/o parkinsons disease ) Psychiatric: mood/affect appropriate, cooperative - Lab 10/23/18 19:18 10/26/18 07:11 Most recent lab results Calcium 8.7 mg/dL (8.4-10.2) 10/26/18 07:11 - Allied health notes Allied health notes reviewed: nursing Medications & Allergies - Medications Allergies/Adverse Reactions: Allergies aspirin Allergy (Verified 10/23/18 17:48) Swelling latex Allergy (Verified 10/23/18 17:48) rash, blisters Penicillins Allergy (Verified 10/23/18 17:48) Unknown sulfamethoxazole [From Bactrim] Allergy (Verified 10/23/18 17:48) Swelling trimethoprim [From Bactrim] Allergy (Verified 10/23/18 17:48) Swelling vancomycin Adverse Reaction (Verified 10/23/18 17:48) Itching STARTED ITCHING TO AXILLA AND NECK AFTER RECEIVING VANCOMYCIN IV. Home Medications: Home Medications Medication Instructions Recorded Confirmed Last Taken Type Carbidopa/Levodopa ER 50-200 1 each PO QID 04/30/14 10/24/18 11/04/17 History [Sinemet ER 50/200] 1 Amantadine HCl [Amantadine] 200 mg PO DAILY 08/06/17 10/24/18 11/03/17 History 200mg Ascorbic Acid [Vitamin C] 300 mg PO DAILY 08/06/17 10/24/18 11/03/17 History 300mg Docusate Sodium [Colace CAP] 100 mg PO BID PRN 08/06/17 10/24/18 10/13/17 History Folic Acid [Folvite] 25 mg PO DAILY 08/06/17 10/24/18 11/03/17 History 25mg Furosemide [Lasix TAB] 20 mg PO QDAY 08/06/17 10/24/18 11/03/17 History 20mg Ubidecarenone [Co Q-10] 100 mg PO DAILY 08/06/17 10/24/18 11/03/17 History 100mg Cholecalciferol (Vitamin D3) 50,000 unit PO 1XW 10/14/17 10/24/18 11/03/17 History [Vitamin D3] 50,000 units cloNIDine [Catapres] 0.2 mg PO PRN PRN 10/14/17 10/24/18 11/03/17 History 0.2mg Apixaban [Eliquis] 5 mg PO BID 14 Days #28 tablet 11/04/17 10/24/18 Unknown Rx HYDROcodone/ACETAMINOPHEN [[place] 1 each PO Q6H 2 Days #8 tablet 11/04/17 10/24/18 Unknown Rx 5-325 Tablet] Active Medications: Generic Name Dose Route Start Last Admin Trade Name Freq PRN Reason Stop Dose Admin Acetaminophen 650 mg 10/24/18 03:04 Tylenol PO Q4H PRN Pain MILD(1-3)/Fever >100.5/VELA Al Hydrox/Mg Hydrox/Simethicone 30 ml 10/24/18 03:04 Alum-Mag Hydrox-Simeth 110-477-69kf/5ml PO Q4H PRN Indigestion Amlodipine Besylate 10 mg 10/24/18 03:47 10/26/18 10:18 Norvasc PO 10 mg QDAY JUSTIN Administration Bisacodyl 10 mg 10/24/18 22:00 Dulcolax MD QDAY PRN Constipation Carbidopa/Levodopa 2 each 10/25/18 01:24 10/26/18 10:17 Sinemet PO 2 each QID JUSTIN Administration Carvedilol 25 mg 10/24/18 04:00 10/26/18 10:18 Coreg PO 25 mg BID JUSTIN Administration Clonidine HCl 0.2 mg 10/24/18 03:47 Catapres PO Q4H PRN Blood Pressure Docusate Sodium 100 mg 10/24/18 10:00 10/26/18 10:17 Colace PO 100 mg BID JUSTIN Administration Famotidine 10 mg 10/25/18 10:00 10/26/18 10:17 Pepcid PO 10 mg BID JUSTIN Administration Furosemide 40 mg 10/25/18 10:00 10/26/18 10:18 Lasix PO 40 mg QDAY JUSTIN Administration Heparin Sodium (Porcine) 5,000 unit 10/24/18 10:00 10/26/18 10:19 Heparin SUB-Q 5,000 unit Q12HR JUSTIN Administration Sodium Chloride 1,000 mls @ 75 mls/hr 10/24/18 04:00 Nacl 0.9% 1000 Ml IV DIRECT JUSTIN Morphine Sulfate 1 mg 10/24/18 03:04 Morphine IV Q4H PRN Pain, Moderate (4-6) Nitroglycerin 0.4 mg 10/24/18 03:07 Nitrostat SL .Q5MIN PRN Chest Pain Ondansetron HCl 4 mg 10/24/18 03:04 Zofran IV Q8H PRN Nausea And Vomiting Sodium Bicarbonate 650 mg 10/25/18 22:00 10/26/18 10:17 Sodium Bicarbonate PO 650 mg BID JUSTIN Administration Sodium Chloride 10 ml 10/24/18 10:00 10/26/18 10:19 Sodium Chloride Flush Syringe 10 Ml IV 10 ml BID JUSTIN Administration Sodium Chloride 10 ml 10/24/18 03:04 Sodium Chloride Flush Syringe 10 Ml IV PRN PRN LINE FLUSH
--- NOTE | 2018-10-26 18:22 | Progress Note ---
Assessment and Plan Assessment and plan: Chest pain with mildly elevated troponin -Cardiology was consulted and recommended current management -Patient is frail and doesn't need aggressive cardiac work up HTN - The patient is going up and down, could be autonomic dysfunction - Continue his medications Parkinson's disease -Resume home meds Chronic decubitus ulcers -Wound care nurse consulted -wound vac ESRD -S/P dialysis catheter -Consult nephrology and recommended no FIELD SERVICE CONSULTANT -Cr is actually decreased from baseline DVT prophylaxis with heparin DVT; DC back to SNF likey in AM if stable. Discussed with case management wound vac then SNF in am History Interval history: Patient seen and examined, lethargic, no other complaints. awaiting wound vac Hospitalist Physical - Physical exam Narrative exam: Not in cardiopulmonary distress. The patient appeared well nourished and normally developed. Vital signs as documented. Head exam is unremarkable. No scleral icterus . Neck is without jugular venous distension, thyromegaly, or carotid bruits. Lungs are clear to auscultation. Cardiac exam reveals regular rate and Rhythm. Abdominal exam reveals normal bowel sounds. Extremities are nonedematous. SENIOR INSPECTOR: Alert and oriented 3. No focal weakness. SKIN: Stage 4 pressure ulcer at the sacrum, with good granulation tissue - Constitutional Vitals: Temp Pulse Resp BP Pulse Ox 98.0 F 66 20 143/62 96 10/26/18 15:55 10/26/18 15:55 10/26/18 15:55 10/26/18 15:55 10/26/18 15:55 General appearance: Present: no acute distress, cachectic Results - Labs CBC & Chem 7: 10/23/18 19:18 10/26/18 07:11 Labs: Laboratory Last Values WBC 5.0 K/mm3 (4.5-11.0) 10/23/18 19:18 RBC 4.10 M/mm3 (3.65-5.03) 10/23/18 19:18 Hgb 10.4 gm/dl (10.1-14.3) 10/23/18 19:18 Hct 32.9 % (30.3-42.9) 10/23/18 19:18 MCV 80 fl (79-97) 10/23/18 19:18 MCH 25 pg (28-32) L 10/23/18 19:18 MCHC 32 % (30-34) 10/23/18 19:18 RDW 20.1 % (13.2-15.2) H 10/23/18 19:18 Plt Count 276 K/mm3 (140-440) 10/23/18 19:18 Lymph % (Auto) 30.3 % (13.4-35.0) 10/23/18 19:18 [place] % (Auto) 10.5 % (0.0-7.3) H 10/23/18 19:18 Eos % (Auto) 0.8 % (0.0-4.3) 10/23/18 19:18 Baso % (Auto) 0.3 % (0.0-1.8) 10/23/18 19:18 Lymph # 1.5 K/mm3 (1.2-5.4) 10/23/18 19:18 [place] # 0.5 K/mm3 (0.0-0.8) 10/23/18 19:18 Eos # 0.0 K/mm3 (0.0-0.4) 10/23/18 19:18 Baso # 0.0 K/mm3 (0.0-0.1) 10/23/18 19:18 Seg Neutrophils % 58.1 % (40.0-70.0) 10/23/18 19:18 Seg Neutrophils # 2.9 K/mm3 (1.8-7.7) 10/23/18 19:18 Sodium 147 mmol/L (137-145) H 10/26/18 07:11 Potassium 3.6 mmol/L (3.6-5.0) 10/26/18 07:11 Chloride 115.7 mmol/L (98-107) H 10/26/18 07:11 Carbon Dioxide 22 mmol/L (22-30) 10/26/18 07:11 Anion Gap 13 mmol/L 10/26/18 07:11 BUN 28 mg/dL (7-17) H 10/26/18 07:11 Creatinine 1.5 mg/dL (0.7-1.2) H 10/26/18 07:11 Estimated GFR 41 ml/min 10/26/18 07:11 BUN/Creatinine Ratio 19 % 10/26/18 07:11 Glucose 96 mg/dL (65-100) 10/26/18 07:11 Calcium 8.7 mg/dL (8.4-10.2) 10/26/18 07:11 Iron 38 ug/dL (37-170) 10/24/18 14:20 TIBC 170 mcg/dL (250-450) L 10/24/18 14:20 Ferritin 211.2 ng/mL (13.0-400.0) 10/24/18 14:20 Troponin T 0.045 ng/mL (0.00-0.029) H 10/24/18 00:36 Triglycerides 66 mg/dL (2-149) 10/23/18 19:18 Cholesterol 173 mg/dL (50-199) 10/23/18 19:18 LDL Cholesterol Direct 104 mg/dL (50-130) 10/23/18 19:18 HDL Cholesterol 65 mg/dL (40-59) H 10/23/18 19:18 Cholesterol/HDL Ratio 2.66 % 10/23/18 19:18 Active Medications - Current Medications Current Medications: Generic Name Dose Route Start Last Admin Trade Name Freq PRN Reason Stop Dose Admin Acetaminophen 650 mg 10/24/18 03:04 Tylenol PO Q4H PRN Pain MILD(1-3)/Fever >100.5/VELA Al Hydrox/Mg Hydrox/Simethicone 30 ml 10/24/18 03:04 Alum-Mag Hydrox-Simeth 100-936-10el/5ml PO Q4H PRN Indigestion Amantadine HCl 200 mg 10/27/18 10:00 Symmetrel PO DAILY JUSTIN Amlodipine Besylate 10 mg 10/24/18 03:47 10/26/18 10:18 Norvasc PO 10 mg QDAY JUSTIN Administration Bisacodyl 10 mg 10/24/18 22:00 Dulcolax PA QDAY PRN Constipation Carbidopa/Levodopa 2 each 10/25/18 01:24 10/26/18 13:51 Sinemet PO 2 each QID JUSTIN Administration Carbidopa/Levodopa 1 each 10/26/18 18:00 Sinemet Er PO QID JUSTIN Carvedilol 25 mg 10/24/18 04:00 10/26/18 10:18 Coreg PO 25 mg BID JUSTIN Administration Clonidine HCl 0.2 mg 10/24/18 03:47 Catapres PO Q4H PRN Blood Pressure Docusate Sodium 100 mg 10/24/18 10:00 10/26/18 10:17 Colace PO 100 mg BID JUSTIN Administration Famotidine 10 mg 10/25/18 10:00 10/26/18 10:17 Pepcid PO 10 mg BID JUSTIN Administration Furosemide 40 mg 10/25/18 10:00 10/26/18 10:18 Lasix PO 40 mg QDAY JUSTIN Administration Heparin Sodium (Porcine) 5,000 unit 10/24/18 10:00 10/26/18 10:19 Heparin SUB-Q 5,000 unit Q12HR JUSTIN Administration Sodium Chloride 1,000 mls @ 75 mls/hr 10/24/18 04:00 Nacl 0.9% 1000 Ml IV DIRECT JUSTIN Morphine Sulfate 1 mg 10/24/18 03:04 Morphine IV Q4H PRN Pain, Moderate (4-6) Nitroglycerin 0.4 mg 10/24/18 03:07 Nitrostat SL .Q5MIN PRN Chest Pain Ondansetron HCl 4 mg 10/24/18 03:04 Zofran IV Q8H PRN Nausea And Vomiting Sodium Bicarbonate 650 mg 10/25/18 22:00 10/26/18 10:17 Sodium Bicarbonate PO 650 mg BID JUSTIN Administration Sodium Chloride 10 ml 10/24/18 10:00 10/26/18 10:19 Sodium Chloride Flush Syringe 10 Ml IV 10 ml BID JUSTIN Administration Sodium Chloride 10 ml 10/24/18 03:04 Sodium Chloride Flush Syringe 10 Ml IV PRN PRN LINE FLUSH Nutrition/Malnutrition Assess - Dietary Evaluation Nutrition/Malnutrition Findings: Nutrition Notes Start: 10/24/18 12:57 Freq: Status: Active Protocol: Document 10/26/18 17:08 RM (Rec: 10/26/18 17:15 RM [email or web address]) Nutrition Notes Initial or Follow up Reassessment Current Diagnosis Decubitus(Pressure Ulcer), Hypertension Other Pertinent Diagnosis Parkinson's Current Diet Renal Labs/Tests Reviewed Pertinent Medications Lasix Height 5 ft 7 in Weight 74.3 kg Usual Body Weight 113.6 kg [place] Body Weight (kg) 61.36 BMI 25.6 Weight change and time frame Current wt obtained from [facility]. 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 Noted breakfast ate bedside w/none eaten. Admitted to N/V and constipation. Pt requested Nepro d/t plan to be going on HD. Stated UBW was 240-260 lbs August 2017. No temporal or oribtal wasting . 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 No Is Patient Ambulatory and/or Out of Bed No REE-([facility]-confined to bed) 1525.152 Kcal/Kg value to use for calculation 30 Approximate Energy Requirements Using 2229 kcal/Kg Calculation Used for Recommendations Kcal/kg Additional Notes protein (1.2-1.5g/kg): 71-88g daily fluid: 1mL/kcal or per MD Nutrition Intervention Change Diet Order: continue current Add Supplement/Snack (indicate name/kcal Nepro 1 daily /protein ) Provides kCal: 425 Provides Protein (gm) 19 Goal #1 Meet at least 75% of calorie and protein needs via PO and ONS intakes Goal #2 Wound healing Anticipated Discharge Needs: Renal diet Follow-Up By: 10/28/18 Additional Comments Follow for PO and ONS intakes
[2018-10-26] MEDS: SYMMETREL PO SCH (19:52)
--- NOTE | 2018-10-27 08:06 | Discharge Summary ---
Providers - Providers Date of Admission: 10/24/18 03:04 Attending physician: LOUIE HAMPTON MD 10/24/18 03:08 Consult to Physician [CONS] Routine Comment: Consulting Provider: TIMOTEO OLIVIER Physician Instructions: Reason For Exam: chest pain 10/24/18 03:54 Consult to Wound/ET Nurse [CONS] Routine Reason For Exam: wound eval 10/24/18 08:23 Consult to Physician [CONS] Routine Comment: Consulting Provider: JOEY JUNIOR Physician Instructions: Reason For Exam: CKD 10/26/18 15:37 Consult to Case Management [CONS] Routine Services Needed at Discharge: Other Notified:: pillowcase folder Additional Physician Instructions: wound vac [facility] Reason for admission: chest pain Condition: Stable Hospital course: Patient is a 78 year old female with PMHX of hypertension and Parkinson's disease who presented to the ED on account of 3 days history of epigastric pain radiating to the chest. She described it as burning in nature and rated as 7/10. Pain waxes and wanes. No known aggravating factors but pain is slightly relieved with cold water. She has associated palpitation, diaphoresis and headaches. She denies shortness of breath, cough, fever, chills, sore throat, runny nose or congestion. She admits to chronic bilateral leg swelling but not orthopnea or PND. No nausea, vomiting, abdominal pain, constipation, diarrhea, dysuria, frequency, lightheadedness, syncope or loss of consciousness. No reported history of recent stress test. Patient was seen and examined, cardiology was consulted and recommended conservative management due to patients frailty and not a candidate for aggressive cardiac evaluation and therapy. Patient was also seen by operations leader and was noted to have a right upper ext AV fistula which is matured with appropriate thrill and bruit. Will follow with nephrology in 2 weeks. Wound care evaluated and recommended wound vac, considering the patients clinically condition it is important that this patient be in a nursing facility for rehab and also wound management. She is non ambulatory family requested mental health eval due to personality change, while i have not witnessed this, the grandson is adamant about this, Mental health consulted. CT brain also done. atypical Chest pain CAD NSTEMI TYPE 2 Parkinson's disease Chronic decubitus ulcers ESRD CKD (chronic kidney disease), stage V Hypertensive chronic kidney disease with stage 1 through stage 4 chronic kidney disease, or unspecified chronic kidney disease Anemia in CKD (chronic kidney disease) Localized edema Metabolic acidosis Major depression disorder Disposition: DC/[place]-03 SNF [facility] Time spent for discharge: 35 mins Core Measure Documentation - Palliative Care Palliative Care/ Comfort Measures: Not Applicable - Core Measures Any of the following diagnoses?: none Exam - Physical Exam Narrative exam: Not in cardiopulmonary distress. The patient appeared well nourished and normally developed. Vital signs as documented. Head exam is unremarkable. No scleral icterus . Neck is without jugular venous distension, thyromegaly, or carotid bruits. Lungs are clear to auscultation. Cardiac exam reveals regular rate and Rhythm. Abdominal exam reveals normal bowel sounds. Extremities are nonedematous. HUMAN RESOURCE ANALYST: Alert and oriented 3. No focal weakness. SKIN: Stage 4 pressure ulcer at the sacrum, with good granulation tissue - Constitutional Vitals: Temp Pulse Resp BP Pulse Ox 98.2 F 63 16 149/65 98 10/27/18 05:00 10/27/18 05:00 10/27/18 05:00 10/27/18 05:00 10/27/18 05:00 Plan Activity: advance as tolerated, fall precautions Diet: renal Special Instructions: record daily weights, record daily BP diary Follow up with: GEOFFREY GUZMAN MD [Staff Physician] - 7 Days JOEY JUNIOR MD [Staff Physician] - 7 Days [facility] [Primary Care Provider] - 3-5 Days [facility] [Outside] - 7 Days Prescriptions: Antacid [Alum-Mag Hydrox-Simeth [id number]/5Ml] 30 ml PO Q4H PRN #30 oral.liqd PRN Reason: Indigestion cloNIDine [Catapres] 0.2 mg PO Q4H PRN #30 tablet PRN Reason: Blood Pressure Docusate Sodium [Colace CAP] 100 mg PO BID #30 capsule Carvedilol [Coreg] 25 mg PO BID #60 tablet Bisacodyl [Dulcolax suppos] 10 mg [place] QDAY PRN #30 supp.rect PRN Reason: Constipation Furosemide [Lasix TAB] 40 mg PO QDAY #30 tablet amLODIPine [Norvasc] 10 mg PO QDAY #30 tablet Famotidine [Pepcid] 10 mg PO BID #30 tablet oxyCODONE /ACETAMINOPHEN [Percocet 5/325] 1 tab PO Q6HR PRN #14 tablet PRN Reason: Pain Sodium Bicarbonate 650 mg PO BID #20 tablet
[2018-10-27] MEDS: PEPCID PO SCH ×2 (09:10→22:09)
[2018-10-27] MEDS: SODIUM BICARBONATE PO SCH ×2 (09:10→22:09)
[2018-10-27] MEDS: NORVASC PO SCH (09:10)
[2018-10-27] MEDS: COREG PO SCH ×2 (09:11→22:10)
[2018-10-27] MEDS: LASIX PO SCH (09:11)
[2018-10-27] MEDS: HEPARIN SUB-Q SCH ×2 (09:11→22:13)
[2018-10-27] MEDS: SINEMET PO SCH ×4 (09:11→22:10)
[2018-10-27] MEDS: COLACE PO SCH ×2 (09:11→22:09)
[2018-10-27] MEDS: SODIUM CHLORIDE FLUSH SYRINGE 10 ML IV SCH ×2 (09:12→22:14)
--- NOTE | 2018-10-27 09:12 | Progress Note ---
Assessment and Plan - Patient Problems (1) CKD (chronic kidney disease), stage V Current Visit: Yes Status: Chronic Plan to address problem: Patient has right upper extremity AV fistula which seems to have matured at this time with appropriate thrill and bruit noted on examination. There is no acute indications for initiating renal replacement therapy at present time. Serum creatinine is actually lower than it has been on previous lab studies. I am concerned that this may also be in the setting of worsening cachexia and overall decreased appetite and loss of muscle mass. There is no acute indications for dialysis initiation at this point. Overall renal function is stable. Patient needs to follow up with Dr Banerjee, nephrology, 1-2 weeks post discharge. From a renal standpoint patient is stable for discharge. (2) Hypertensive chronic kidney disease with stage 1 through stage 4 chronic kidney disease, or unspecified chronic kidney disease Current Visit: Yes Status: Chronic Plan to address problem: Continue current regimen and will monitor closely. Placed on amlodipine 10 mg. (3) Elevated troponin Current Visit: Yes Status: Acute Plan to address problem: Mild elevations noted in this patient with advanced chronic kidney disease. Chest pain symptoms have resolved at this time. Conservative management per cardiology recommendations. (4) Anemia in CKD (chronic kidney disease) Current Visit: Yes Status: Chronic Qualifiers: Chronic kidney disease stage: stage 5, not on chronic dialysis Qualified Code(s): N18.5 - Chronic kidney disease, stage 5; D63.1 - Anemia in chronic kidney disease Plan to address problem: Hemoglobin levels are stable at this time. Would assess iron studies at this time. There is no acute indications for RADHA therapy at present time. We'll continue to monitor. (5) Localized edema Current Visit: Yes Status: Chronic Plan to address problem: Have restarted patient on home regimen of Lasix 40 mg by mouth daily. (6) Metabolic acidosis Current Visit: Yes Status: Acute Plan to address problem: Will add on sodium bicarb 650 mg PO BID. Subjective Date of service: 10/27/18 Interval history: no acute changes overnight. Likely DC today. renal function remains stable. Objective - Vital Signs Vital signs: Vital Signs - 12hr 10/26/18 10/27/18 10/27/18 21:16 00:00 05:00 Temperature 99 F 98.2 F Pulse Rate 95 H 64 63 Respiratory 16 16 Rate Blood Pressure 141/98 Blood Pressure 151/66 149/65 [Right] O2 Sat by Pulse 98 98 Oximetry - General Appearance General appearance: appears stated age, chronically ill, frail EENT: ATNC, PERRL Neck: no JVD, no thyromegaly Respiratory: Present: Clear to Ascultation Cardiology: regular, S1S2 Gastrointestinal: normal, normoactive bowel sounds Integumentary: no rash, warm and dry Neurologic: alert and oriented x3 Musculoskeletal: other (-edema ) Psychiatric: cooperative - Lab 10/23/18 19:18 10/26/18 07:11 Most recent lab results Calcium 8.7 mg/dL (8.4-10.2) 10/26/18 07:11 - Allied health notes Allied health notes reviewed: nursing Medications & Allergies - Medications Allergies/Adverse Reactions: Allergies aspirin Allergy (Verified 10/23/18 17:48) Swelling latex Allergy (Verified 10/23/18 17:48) rash, blisters Penicillins Allergy (Verified 10/23/18 17:48) Unknown sulfamethoxazole [From Bactrim] Allergy (Verified 10/23/18 17:48) Swelling trimethoprim [From Bactrim] Allergy (Verified 10/23/18 17:48) Swelling vancomycin Adverse Reaction (Verified 10/23/18 17:48) Itching STARTED ITCHING TO AXILLA AND NECK AFTER RECEIVING VANCOMYCIN IV. Home Medications: Home Medications Medication Instructions Recorded Confirmed Last Taken Type Carbidopa/Levodopa ER 50-200 1 each PO QID 04/30/14 10/24/18 11/04/17 History [Sinemet ER 50/200] 1 Amantadine HCl [Amantadine] 200 mg PO DAILY 08/06/17 10/24/18 11/03/17 History 200mg Ascorbic Acid [Vitamin C] 300 mg PO DAILY 08/06/17 10/24/18 11/03/17 History 300mg Folic Acid [Folvite] 25 mg PO DAILY 08/06/17 10/24/18 11/03/17 History 25mg Ubidecarenone [Co Q-10] 100 mg PO DAILY 08/06/17 10/24/18 11/03/17 History 100mg Cholecalciferol (Vitamin D3) 50,000 unit PO 1XW 10/14/17 10/24/18 11/03/17 History [Vitamin D3] 50,000 units Apixaban [Eliquis] 5 mg PO BID 14 Days #28 tablet 11/04/17 10/24/18 Unknown Rx Antacid [Alum-Mag Hydrox-Simeth 30 ml PO Q4H PRN #30 oral.liqd 10/27/18 Unknown Rx [id number]/5Ml] Bisacodyl [Dulcolax suppos] 10 mg [place] QDAY PRN #30 supp.rect 10/27/18 Unknown Rx Carvedilol [Coreg] 25 mg PO BID #60 tablet 10/27/18 Unknown Rx Docusate Sodium [Colace CAP] 100 mg PO BID #30 capsule 10/27/18 Unknown Rx Famotidine [Pepcid] 10 mg PO BID #30 tablet 10/27/18 Unknown Rx Furosemide [Lasix TAB] 40 mg PO QDAY #30 tablet 10/27/18 Unknown Rx Sodium Bicarbonate 650 mg PO BID #20 tablet 10/27/18 Unknown Rx amLODIPine [Norvasc] 10 mg PO QDAY #30 tablet 10/27/18 Unknown Rx cloNIDine [Catapres] 0.2 mg PO Q4H PRN #30 tablet 10/27/18 Unknown Rx oxyCODONE /ACETAMINOPHEN [Percocet 1 tab PO Q6HR PRN #14 tablet 10/27/18 Unknown Rx 5/325] Active Medications: Generic Name Dose Route Start Last Admin Trade Name Freq PRN Reason Stop Dose Admin Acetaminophen 650 mg 10/24/18 03:04 Tylenol PO Q4H PRN Pain MILD(1-3)/Fever >100.5/VELA Al Hydrox/Mg Hydrox/Simethicone 30 ml 10/24/18 03:04 Alum-Mag Hydrox-Simeth 070-022-54eg/5ml PO Q4H PRN Indigestion Amantadine HCl 200 mg 10/26/18 10:00 10/26/18 19:52 Symmetrel PO 200 mg DAILY JUSTIN Administration Amlodipine Besylate 10 mg 10/24/18 03:47 10/26/18 10:18 Norvasc PO 10 mg QDAY JUSTIN Administration Bisacodyl 10 mg 10/24/18 22:00 Dulcolax [place] QDAY PRN Constipation Carbidopa/Levodopa 1 each 10/26/18 18:00 10/26/18 21:35 Sinemet Er PO 1 each QID JUSTIN Administration Carvedilol 25 mg 10/24/18 04:00 10/26/18 21:16 Coreg PO 25 mg BID JUSTIN Administration Clonidine HCl 0.2 mg 10/24/18 03:47 Catapres PO Q4H PRN Blood Pressure Docusate Sodium 100 mg 10/24/18 10:00 10/26/18 21:15 Colace PO 100 mg BID JUSTIN Administration Famotidine 10 mg 10/25/18 10:00 10/26/18 21:15 Pepcid PO 10 mg BID JUSTIN Administration Furosemide 40 mg 10/25/18 10:00 10/26/18 10:18 Lasix PO 40 mg QDAY JUSTIN Administration Heparin Sodium (Porcine) 5,000 unit 10/24/18 10:00 10/26/18 21:15 Heparin SUB-Q 5,000 unit Q12HR JUSTIN Administration Sodium Chloride 1,000 mls @ 75 mls/hr 10/24/18 04:00 Nacl 0.9% 1000 Ml IV DIRECT JUSTIN Morphine Sulfate 1 mg 10/24/18 03:04 Morphine IV Q4H PRN Pain, Moderate (4-6) Nitroglycerin 0.4 mg 10/24/18 03:07 Nitrostat SL .Q5MIN PRN Chest Pain Ondansetron HCl 4 mg 10/24/18 03:04 Zofran IV Q8H PRN Nausea And Vomiting Sodium Bicarbonate 650 mg 10/25/18 22:00 10/26/18 21:15 Sodium Bicarbonate PO 650 mg BID JUSTIN Administration Sodium Chloride 10 ml 10/24/18 10:00 10/26/18 21:15 Sodium Chloride Flush Syringe 10 Ml IV 10 ml BID JUSTIN Administration Sodium Chloride 10 ml 10/24/18 03:04 Sodium Chloride Flush Syringe 10 Ml IV PRN PRN LINE FLUSH
[2018-10-27] MEDS: SYMMETREL PO SCH (09:53)
--- NOTE | 2018-10-27 12:24 | Cat Scan Report ---
CT HEAD WITHOUT CONTRAST: HISTORY: CVA. TECHNIQUE: Sequential 2.5mm CT images. COMPARISON: none. FINDINGS: Cerebral Parenchyma: Within normal limits. Cerebellum: Within normal limits. Brainstem: Within normal limits. Ventricles: Normal. Sella: Normal. Extra-axial spaces: Normal. Basal Cisterns: Normal. Intracranial Hemorrhage: None. Midline Shift: None. Calvarium: Normal. Sinuses: Normal. Mastoid Air Cells: Normal. Visualized Orbits: Normal. IMPRESSION: Cranial CT scan within normal limits.
[2018-10-27 14:04] LABS: Calcium 8.8 mg/dL (8.4-10.2)
--- NOTE | 2018-10-27 14:16 | Progress Note ---
Assessment and Plan - Patient Problems (1) Chest pain Current Visit: Yes Status: Acute Plan to address problem: Due to severe comorbidities, frail, cachectic status, patient is not a candidate for aggressive cardiac evaluation and therapies. Recommend conservative management. We will follow intermittently. Subjective Date of service: 10/27/18 Interval history: Patient is frail, elderly, cachectic, no cardiac complaints. Objective Vital Signs Temp Pulse Resp BP BP Pulse Ox 10/27/18 11:59 98.2 F 64 18 154/61 96 10/27/18 09:11 149/65 10/27/18 09:10 149/65 10/27/18 08:00 98.3 F 61 18 148/58 96 10/27/18 05:00 98.2 F 63 16 149/65 98 10/27/18 00:00 99 F 64 16 151/66 98 10/26/18 21:16 95 H 141/98 10/26/18 21:00 64 10/26/18 20:00 98.6 F 65 17 134/53 99 10/26/18 15:55 98.0 F 66 20 143/62 96 - Physical Examination General: No Apparent Distress, Cachectic HEENT: Positive: PERRL Neck: Positive: neck supple Cardiac: Positive: Reg Rate and Rhythm Lungs: Positive: Decreased Breath Sounds Neuro: Positive: Weakness Abdomen: Positive: Soft Skin: Positive: Clear Extremities: Absent: edema - Labs and Meds Comprehensive Metabolic Panel 10/27/18 Range/Units 13:32 Sodium 144 (137-145) mmol/L Potassium 3.7 (3.6-5.0) mmol/L Chloride 109.4 H (98-107) mmol/L Carbon Dioxide 22 (22-30) mmol/L BUN 28 H (7-17) mg/dL Creatinine 1.6 H (0.7-1.2) mg/dL Glucose 92 (65-100) mg/dL Calcium 8.8 (8.4-10.2) mg/dL - Allied health notes Allied health notes reviewed: nursing
--- NOTE | 2018-10-27 14:44 | Progress Note ---
Assessment and Plan Assessment and plan: Patient is a 78 year old female with PMHX of hypertension and Parkinson's disease who presented to the ED on account of 3 days history of epigastric pain radiating to the chest. She described it as burning in nature and rated as 7/10. Pain waxes and wanes. No known aggravating factors but pain is slightly relieved with cold water. She has associated palpitation, diaphoresis and headaches. She denies shortness of breath, cough, fever, chills, sore throat, runny nose or congestion. She admits to chronic bilateral leg swelling but not orthopnea or PND. No nausea, vomiting, abdominal pain, constipation, diarrhea, dysuria, frequency, lightheadedness, syncope or loss of consciousness. No reported history of recent stress test. Patient was seen and examined, cardiology was consulted and recommended conservative management due to patients frailty and not a candidate for aggressive cardiac evaluation and therapy. Patient was also seen by mobile equipment servicer and was noted to have a right upper ext AV fistula which is matured with appropriate thrill and bruit. Will follow with nephrology in 2 weeks. Wound care evaluated and recommended wound vac, considering the patients clinically condition it is important that this patient be in a nursing facility for rehab and also wound management. She is non ambulatory family requested mental health eval due to personality change, while i have not witnessed this, the grandson is adamant about this, Mental health consulted. CT brain also done and is negative. atypical Chest pain CAD NSTEMI TYPE 2 Parkinson's disease Chronic decubitus ulcers ESRD CKD (chronic kidney disease), stage V Hypertensive chronic kidney disease with stage 1 through stage 4 chronic kidney disease, or unspecified chronic kidney disease Anemia in CKD (chronic kidney disease) Localized edema Metabolic acidosis Plan Continue supportive care No aggressive cardiac work up or intervention planned Head ct checked, negative for acute disease Mental Health consult Continue wound care and HD while in house DVT prophylaxis with heparin DVT; DC back to SNF once wound vac and SNF identified. Plan discussed with case management and Family History Interval history: Patient seen and examined, lethargic, no other complaints. awaiting wound vac. Family at bedside, concerned that the patient has had some outburst of cursing a nd difficulty to manage personality which is unusual for the patient. No other staff has witnessed in the last 48hrs Hospitalist Physical - Physical exam Narrative exam: Not in cardiopulmonary distress. The patient appeared well nourished and normally developed. Vital signs as documented. Head exam is unremarkable. No scleral icterus . Neck is without jugular venous distension, thyromegaly, or carotid bruits. Lungs are clear to auscultation. Cardiac exam reveals regular rate and Rhythm. Abdominal exam reveals normal bowel sounds. Extremities are nonedematous. CA[employer]ING: Alert and oriented 3. No focal weakness. SKIN: Stage 4 pressure ulcer at the sacrum, with good granulation tissue - Constitutional Vitals: Temp Pulse Resp BP Pulse Ox 98.2 F 64 18 154/61 96 10/27/18 11:59 10/27/18 11:59 10/27/18 11:59 10/27/18 11:59 10/27/18 11:59 General appearance: Present: no acute distress, cachectic Results - Labs CBC & Chem 7: 10/23/18 19:18 10/27/18 13:32 Labs: Laboratory Last Values WBC 5.0 K/mm3 (4.5-11.0) 10/23/18 19:18 RBC 4.10 M/mm3 (3.65-5.03) 10/23/18 19:18 Hgb 10.4 gm/dl (10.1-14.3) 10/23/18 19:18 Hct 32.9 % (30.3-42.9) 10/23/18 19:18 MCV 80 fl (79-97) 10/23/18 19:18 MCH 25 pg (28-32) L 10/23/18 19:18 MCHC 32 % (30-34) 10/23/18 19:18 RDW 20.1 % (13.2-15.2) H 10/23/18 19:18 Plt Count 276 K/mm3 (140-440) 10/23/18 19:18 Lymph % (Auto) 30.3 % (13.4-35.0) 10/23/18 19:18 Mccreary % (Auto) 10.5 % (0.0-7.3) H 10/23/18 19:18 Eos % (Auto) 0.8 % (0.0-4.3) 10/23/18 19:18 Baso % (Auto) 0.3 % (0.0-1.8) 10/23/18 19:18 Lymph # 1.5 K/mm3 (1.2-5.4) 10/23/18 19:18 Mccreary # 0.5 K/mm3 (0.0-0.8) 10/23/18 19:18 Eos # 0.0 K/mm3 (0.0-0.4) 10/23/18 19:18 Baso # 0.0 K/mm3 (0.0-0.1) 10/23/18 19:18 Seg Neutrophils % 58.1 % (40.0-70.0) 10/23/18 19:18 Seg Neutrophils # 2.9 K/mm3 (1.8-7.7) 10/23/18 19:18 Sodium 144 mmol/L (137-145) 10/27/18 13:32 Potassium 3.7 mmol/L (3.6-5.0) 10/27/18 13:32 Chloride 109.4 mmol/L (98-107) H 10/27/18 13:32 Carbon Dioxide 22 mmol/L (22-30) 10/27/18 13:32 Anion Gap 16 mmol/L 10/27/18 13:32 BUN 28 mg/dL (7-17) H 10/27/18 13:32 Creatinine 1.6 mg/dL (0.7-1.2) H 10/27/18 13:32 Estimated GFR 38 ml/min 10/27/18 13:32 BUN/Creatinine Ratio 18 % 10/27/18 13:32 Glucose 92 mg/dL (65-100) 10/27/18 13:32 Calcium 8.8 mg/dL (8.4-10.2) 10/27/18 13:32 Iron 38 ug/dL (37-170) 10/24/18 14:20 TIBC 170 mcg/dL (250-450) L 10/24/18 14:20 Ferritin 211.2 ng/mL (13.0-400.0) 10/24/18 14:20 Troponin T 0.045 ng/mL (0.00-0.029) H 10/24/18 00:36 Triglycerides 66 mg/dL (2-149) 10/23/18 19:18 Cholesterol 173 mg/dL (50-199) 10/23/18 19:18 LDL Cholesterol Direct 104 mg/dL (50-130) 10/23/18 19:18 HDL Cholesterol 65 mg/dL (40-59) H 10/23/18 19:18 Cholesterol/HDL Ratio 2.66 % 10/23/18 19:18 Active Medications - Current Medications Current Medications: Generic Name Dose Route Start Last Admin Trade Name Freq PRN Reason Stop Dose Admin Acetaminophen 650 mg 10/24/18 03:04 Tylenol PO Q4H PRN Pain MILD(1-3)/Fever >100.5/VELA Al Hydrox/Mg Hydrox/Simethicone 30 ml 10/24/18 03:04 Alum-Mag Hydrox-Simeth 022-703-67va/5ml PO Q4H PRN Indigestion Amantadine HCl 200 mg 10/26/18 10:00 10/27/18 09:53 Symmetrel PO 200 mg DAILY JUSTIN Administration Amlodipine Besylate 10 mg 10/24/18 03:47 10/27/18 09:10 Norvasc PO 10 mg QDAY JUSTIN Administration Bisacodyl 10 mg 10/24/18 22:00 Dulcolax [place] QDAY PRN Constipation Carbidopa/Levodopa 1 each 10/26/18 18:00 10/27/18 09:11 Sinemet Er PO 1 each QID JUSTIN Administration Carvedilol 25 mg 10/24/18 04:00 10/27/18 09:11 Coreg PO 25 mg BID JUSTIN Administration Clonidine HCl 0.2 mg 10/24/18 03:47 Catapres PO Q4H PRN Blood Pressure Docusate Sodium 100 mg 10/24/18 10:00 10/27/18 09:11 Colace PO 100 mg BID JUSTIN Administration Famotidine 10 mg 10/25/18 10:00 10/27/18 09:10 Pepcid PO 10 mg BID JUSTIN Administration Furosemide 40 mg 10/25/18 10:00 10/27/18 09:11 Lasix PO 40 mg QDAY JUSTIN Administration Heparin Sodium (Porcine) 5,000 unit 10/24/18 10:00 10/27/18 09:11 Heparin SUB-Q 5,000 unit Q12HR JUSTIN Administration Sodium Chloride 1,000 mls @ 75 mls/hr 10/24/18 04:00 Nacl 0.9% 1000 Ml IV DIRECT JUSTIN Morphine Sulfate 1 mg 10/24/18 03:04 Morphine IV Q4H PRN Pain, Moderate (4-6) Nitroglycerin 0.4 mg 10/24/18 03:07 Nitrostat SL .Q5MIN PRN Chest Pain Ondansetron HCl 4 mg 10/24/18 03:04 Zofran IV Q8H PRN Nausea And Vomiting Sodium Bicarbonate 650 mg 10/25/18 22:00 10/27/18 09:10 Sodium Bicarbonate PO 650 mg BID JUSTIN Administration Sodium Chloride 10 ml 10/24/18 10:00 10/27/18 09:12 Sodium Chloride Flush Syringe 10 Ml IV 10 ml BID JUSTIN Administration Sodium Chloride 10 ml 10/24/18 03:04 Sodium Chloride Flush Syringe 10 Ml IV PRN PRN LINE FLUSH Nutrition/Malnutrition Assess - Dietary Evaluation Nutrition/Malnutrition Findings: Nutrition Notes Start: 10/24/18 12 :57 Freq: Status: Active Protocol: Document 10/26/18 17:08 RM (Rec: 10/26/18 17:15 RM [id number]) Nutrition Notes Initial or Follow up Reassessment Current Diagnosis Decubitus(Pressure Ulcer), Hypertension Other Pertinent Diagnosis Parkinson's Current Diet Renal Labs/Tests Reviewed Pertinent Medications Lasix Height 5 ft 7 in Weight 74.3 kg Usual Body Weight 113.6 kg [place] Body Weight (kg) 61.36 BMI 25.6 Weight change and time frame Current wt obtained from [facility]. 34.6% wt loss 1 year and 1 months Subjective/Other Information Pt stated that [employer] her appetite was poor and that she ate 1 meal daily. Noted breakfast ate bedside w/none eaten. Admitted to N/V and constipation. Pt requested Nepro d/t plan to be going on HD. Stated UBW was 240-260 lbs August 2017. No temporal or oribtal wasting . Percent of energy/protein needs met: 0%/0% Burn Absent Trauma Absent #2 Nutrition Diagnosis Malnutrition Etiology decreased appetite As Evidenced by Signs and Symptoms pt statement that [employer] she ate 1 meal daily, 34.6% wt loss X 1 year and 1 month #1 Nutrition Diagnosis Increased nutrient needs ( specify in comment below) Diagnosis Progress(for reassessment Continues documentation) Is patient on ventilator? No Is Patient Ambulatory and/or Out of Bed No REE-([facility]-confined to bed) 1525.152 Kcal/Kg value to use for calculation 30 Approximate Energy Requirements Using 2229 kcal/Kg Calculation Used for Recommendations Kcal/kg Additional Notes protein (1.2-1.5g/kg): 71-88g daily fluid: 1mL/kcal or per MD Nutrition Intervention Change Diet Order: continue current Add Supplement/Snack (indicate name/kcal Nepro 1 daily /protein ) Provides kCal: 425 Provides Protein (gm) 19 Goal #1 Meet at least 75% of calorie and protein needs via PO and ONS intakes Goal #2 Wound healing Anticipated Discharge Needs: Renal diet Follow-Up By: 10/28/18 Additional Comments Follow for PO and ONS intakes
[2018-10-27] MEDS ORDERED: XYLOCAINE TOPICAL 4% TP PRN (16:06)
--- NOTE | 2018-10-28 09:56 | Progress Note ---
Assessment and Plan - Patient Problems (1) CKD (chronic kidney disease), stage V Current Visit: Yes Status: Chronic Plan to address problem: Patient has right upper extremity AV fistula which seems to have matured at this time with appropriate thrill and bruit noted on examination. There is no acute indications for initiating renal replacement therapy at present time. Serum creatinine is actually lower than it has been on previous lab studies. I am concerned that this may also be in the setting of worsening cachexia and overall decreased appetite and loss of muscle mass. There is no acute indications for dialysis initiation at this point. Overall renal function is stable. Patient needs to follow up with Dr Banerjee, nephrology, 1-2 weeks post discharge. From a renal standpoint patient is stable for discharge. (2) Hypertensive chronic kidney disease with stage 1 through stage 4 chronic kidney disease, or unspecified chronic kidney disease Current Visit: Yes Status: Chronic Plan to address problem: Continue current regimen and will monitor closely. Placed on amlodipine 10 mg. (3) Elevated troponin Current Visit: Yes Status: Acute Plan to address problem: Mild elevations noted in this patient with advanced chronic kidney disease. Chest pain symptoms have resolved at this time. Conservative management per cardiology recommendations. (4) Anemia in CKD (chronic kidney disease) Current Visit: Yes Status: Chronic Qualifiers: Chronic kidney disease stage: stage 5, not on chronic dialysis Qualified Code(s): N18.5 - Chronic kidney disease, stage 5; D63.1 - Anemia in chronic kidney disease Plan to address problem: Hemoglobin levels are stable at this time. Would assess iron studies at this time. There is no acute indications for RADHA therapy at present time. We'll continue to monitor. (5) Localized edema Current Visit: Yes Status: Chronic Plan to address problem: Have restarted patient on home regimen of Lasix 40 mg by mouth daily. (6) Metabolic acidosis Current Visit: Yes Status: Acute Plan to address problem: Will add on sodium bicarb 650 mg PO BID. Subjective Date of service: 10/28/18 Interval history: No acute issues from renal standpoint, and her overall renal function remains stable. Objective - Vital Signs Vital signs: Vital Signs - 12hr 10/27/18 10/27/18 10/28/18 22:10 23:54 04:43 Temperature 98.6 F 98.5 F Pulse Rate 63 60 68 Respiratory 16 16 Rate Blood Pressure 126/54 150/68 O2 Sat by Pulse 99 99 Oximetry 10/28/18 08:38 Temperature 98.4 F Pulse Rate 74 Respiratory 16 Rate Blood Pressure 151/68 O2 Sat by Pulse 98 Oximetry - General Appearance General appearance: appears stated age, frail EENT: ATNC, PERRL Neck: no JVD, no thyromegaly Respiratory: Present: Clear to Ascultation Cardiology: regular, S1S2 Gastrointestinal: normal, normoactive bowel sounds Integumentary: no rash, warm and dry Neurologic: no focal deficit, alert and oriented x3, other (baseline tremors in the setting of parkison disease ) Psychiatric: cooperative - Lab 10/23/18 19:18 10/27/18 13:32 Most recent lab results Calcium 8.8 mg/dL (8.4-10.2) 10/27/18 13:32 - Allied health notes Allied health notes reviewed: nursing Medications & Allergies - Medications Allergies/Adverse Reactions: Allergies aspirin Allergy (Verified 10/23/18 17:48) Swelling latex Allergy (Verified 10/23/18 17:48) rash, blisters Penicillins Allergy (Verified 10/23/18 17:48) Unknown sulfamethoxazole [From Bactrim] Allergy (Verified 10/23/18 17:48) Swelling trimethoprim [From Bactrim] Allergy (Verified 10/23/18 17:48) Swelling vancomycin Adverse Reaction (Verified 10/23/18 17:48) Itching STARTED ITCHING TO AXILLA AND NECK AFTER RECEIVING VANCOMYCIN IV. Home Medications: Home Medications Medication Instructions Recorded Confirmed Last Taken Type Carbidopa/Levodopa ER 50-200 1 each PO QID 04/30/14 10/24/18 11/04/17 History [Sinemet ER 50/200] 1 Amantadine HCl [Amantadine] 200 mg PO DAILY 08/06/17 10/24/18 11/03/17 History 200mg Ascorbic Acid [Vitamin C] 300 mg PO DAILY 08/06/17 10/24/18 11/03/17 History 300mg Folic Acid [Folvite] 25 mg PO DAILY 08/06/17 10/24/18 11/03/17 History 25mg Ubidecarenone [Co Q-10] 100 mg PO DAILY 08/06/17 10/24/18 11/03/17 History 100mg Cholecalciferol (Vitamin D3) 50,000 unit PO 1XW 10/14/17 10/24/18 11/03/17 History [Vitamin D3] 50,000 units Apixaban [Eliquis] 5 mg PO BID 14 Days #28 tablet 11/04/17 10/24/18 Unknown Rx Antacid [Alum-Mag Hydrox-Simeth 30 ml PO Q4H PRN #30 oral.liqd 10/27/18 Unknown Rx [id number]/5Ml] Bisacodyl [Dulcolax suppos] 10 mg OK QDAY PRN #30 supp.rect 10/27/18 Unknown Rx Carvedilol [Coreg] 25 mg PO BID #60 tablet 10/27/18 Unknown Rx Docusate Sodium [Colace CAP] 100 mg PO BID #30 capsule 10/27/18 Unknown Rx Famotidine [Pepcid] 10 mg PO BID #30 tablet 10/27/18 Unknown Rx Furosemide [Lasix TAB] 40 mg PO QDAY #30 tablet 10/27/18 Unknown Rx Sodium Bicarbonate 650 mg PO BID #20 tablet 10/27/18 Unknown Rx amLODIPine [Norvasc] 10 mg PO QDAY #30 tablet 10/27/18 Unknown Rx cloNIDine [Catapres] 0.2 mg PO Q4H PRN #30 tablet 10/27/18 Unknown Rx oxyCODONE /ACETAMINOPHEN [Percocet 1 tab PO Q6HR PRN #14 tablet 10/27/18 Unknown Rx 5/325] Active Medications: Generic Name Dose Route Start Last Admin Trade Name Freq PRN Reason Stop Dose Admin Acetaminophen 650 mg 10/24/18 03:04 Tylenol PO Q4H PRN Pain MILD(1-3)/Fever >100.5/VELA Al Hydrox/Mg Hydrox/Simethicone 30 ml 10/24/18 03:04 Alum-Mag Hydrox-Simeth [id number]/5ml PO Q4H PRN Indigestion Amantadine HCl 200 mg 10/26/18 10:00 10/27/18 09:53 Symmetrel PO 200 mg DAILY JUSTIN Administration Amlodipine Besylate 10 mg 10/24/18 03:47 10/27/18 09:10 Norvasc PO 10 mg QDAY JUSTIN Administration Bisacodyl 10 mg 10/24/18 22:00 Dulcolax OK QDAY PRN Constipation Carbidopa/Levodopa 1 each 10/26/18 18:00 10/27/18 22:10 Sinemet Er PO 1 each QID JUSTIN Administration Carvedilol 25 mg 10/24/18 04:00 10/27/18 22:10 Coreg PO 25 mg BID JUSTIN Administration Clonidine HCl 0.2 mg 10/24/18 03:47 Catapres PO Q4H PRN Blood Pressure Docusate Sodium 100 mg 10/24/18 10:00 10/27/18 22:09 Colace PO 100 mg BID JUSTIN Administration Famotidine 10 mg 10/25/18 10:00 10/27/18 22:09 Pepcid PO 10 mg BID JUSTIN Administration Furosemide 40 mg 10/25/18 10:00 10/27/18 09:11 Lasix PO 40 mg QDAY JUSTIN Administration Heparin Sodium (Porcine) 5,000 unit 10/24/18 10:00 10/27/18 22:13 Heparin SUB-Q 5,000 unit Q12HR JUSTIN Administration Sodium Chloride 1,000 mls @ 75 mls/hr 10/24/18 04:00 Nacl 0.9% 1000 Ml IV DIRECT JUSTIN Lidocaine HCl 2.5 ml 10/27/18 16:06 10/27/18 17:44 Xylocaine Topical 4% TP 2.5 ml TID PRN Administration Pain, Moderate (4-6) Morphine Sulfate 1 mg 10/24/18 03:04 Morphine IV Q4H PRN Pain, Moderate (4-6) Nitroglycerin 0.4 mg 10/24/18 03:07 Nitrostat SL .Q5MIN PRN Chest Pain Ondansetron HCl 4 mg 10/24/18 03:04 Zofran IV Q8H PRN Nausea And Vomiting Sodium Bicarbonate 650 mg 10/25/18 22:00 10/27/18 22:09 Sodium Bicarbonate PO 650 mg BID JUSTIN Administration Sodium Chloride 10 ml 10/24/18 10:00 10/27/18 22:14 Sodium Chloride Flush Syringe 10 Ml IV 10 ml BID JUSTIN Administration Sodium Chloride 10 ml 10/24/18 03:04 Sodium Chloride Flush Syringe 10 Ml IV PRN PRN LINE FLUSH
[2018-10-28] MEDS: COLACE PO SCH ×2 (10:03→21:11)
[2018-10-28] MEDS: SODIUM BICARBONATE PO SCH ×2 (10:03→21:13)
[2018-10-28] MEDS: LASIX PO SCH (10:04)
[2018-10-28] MEDS: PEPCID PO SCH ×2 (10:04→21:12)
[2018-10-28] MEDS: SODIUM CHLORIDE FLUSH SYRINGE 10 ML IV SCH ×2 (10:04→21:13)
[2018-10-28] MEDS: COREG PO SCH ×2 (10:04→21:13)
[2018-10-28] MEDS: SYMMETREL PO SCH (10:04)
[2018-10-28] MEDS: NORVASC PO SCH (10:04)
[2018-10-28] MEDS: HEPARIN SUB-Q SCH ×2 (10:04→21:12)
[2018-10-28] MEDS: SINEMET PO SCH ×4 (10:04→21:12)
--- NOTE | 2018-10-28 14:06 | Progress Note ---
Assessment and Plan - Patient Problems (1) Chest pain Current Visit: Yes Status: Acute Plan to address problem: Due to severe comorbidities, frail, cachectic status, patient is not a candidate for aggressive cardiac evaluation and therapies. Recommend conservative management. We will sign off. Subjective Date of service: 10/28/18 Interval history: Patient is comfortable, no cardiac complaints. Objective Vital Signs Temp Pulse Resp BP Pulse Ox 10/28/18 12:32 98.1 F 73 16 146/65 97 10/28/18 08:38 98.4 F 74 16 151/68 98 10/28/18 04:43 98.5 F 68 16 150/68 99 10/27/18 23:54 98.6 F 60 16 126/54 99 10/27/18 22:10 63 10/27/18 19:40 98.3 F 62 16 128/107 100 10/27/18 16:30 57 L 76/40 10/27/18 16:21 98.4 F 61 18 134/57 99 - Physical Examination General: No Apparent Distress, Cachectic HEENT: Positive: PERRL Neck: Positive: neck supple Cardiac: Positive: Reg Rate and Rhythm Lungs: Positive: Decreased Breath Sounds Neuro: Positive: Weakness Abdomen: Positive: Soft Skin: Positive: Clear Extremities: Absent: edema - Allied health notes Allied health notes reviewed: nursing
--- NOTE | 2018-10-28 16:05 | Consultation ---
History of Present Illness - Reason for Consult Consult date: 10/28/18 Reason for consult: Initial Psychiatric Evaluation - Chief Complaint Chief complaint: " Emotionally I feel well." - History of Present Psychiatric Illness Patient is a 78 year old female who presents to the emergency room with chest pain. Psychiatry was consulted for a psychiatric evaluation and personality change. Today the patient is calm and cooperative during the assessment. Patient's jewel hole finish opener is at the bedside ( niece). Per jewel hole finish opener patient is easily irritated/agitated. She denies past psychiatric history. Patient reports 10 months ago she begin to lose excessive weight and was unable to determine the origin. Per patient she was losing approximately 7 lbs a week. As a result, she endorses lack of motivation, anhedonia, decrease energy, erratic sleep, and decrease appetite. Patient denies any manic episodes. She denies SI/HI's, A/VH's, and delusions. Current Psychiatric Medications: Patient denies. Past Psychiatric History: No previous psychiatric diagnosis; no previous inpatient psychiatric hospitalization; no outpatient psychiatrist; no previous suicide attempt. Past Medication Trials: Patient denies. History of Alcohol/ Drug Abuse: Patient denies drug/alcohol abuse. History of Trauma/Abuse: Patient denies sexual, physical, and mental abuse. Social History: Master's degree in [employer] Estate Finance- highest level of education; monthly income $ 4600; no children; ; limited support system; no pending legal issues. Family History of Psychiatric Illness/Substance Abuse: Patient denies. Medications and Allergies Allergies Allergy/AdvReac Type Severity Reaction Status Date / Time aspirin Allergy Swelling Verified 10/23/18 17:48 latex Allergy rash, Verified 10/23/18 17:48 blisters Penicillins Allergy Unknown Verified 10/23/18 17:48 sulfamethoxazole Allergy Swelling Verified 10/23/18 17:48 [From Bactrim] trimethoprim [From Bactrim] Allergy Swelling Verified 10/23/18 17:48 vancomycin AdvReac Itching Verified 10/23/18 17:48 Home Medications Medication Instructions Recorded Confirmed Last Taken Type Carbidopa/Levodopa ER 50-200 1 each PO QID 04/30/14 10/24/18 11/04/17 History [Sinemet ER 50/200] 1 Amantadine HCl [Amantadine] 200 mg PO DAILY 0110/24/18 11/03/17 History 200mg Ascorbic Acid [Vitamin C] 300 mg PO DAILY 08/06/17 10/24/18 11/03/17 History 300mg Folic Acid [Folvite] 25 mg PO DAILY 08/06/17 10/24/18 11/03/17 History 25mg Ubidecarenone [Co Q-10] 100 mg PO DAILY 08/06/17 10/24/18 11/03/17 History 100mg Cholecalciferol (Vitamin D3) 50,000 unit PO 1XW 10/14/17 10/24/18 11/03/17 History [Vitamin D3] 50,000 units Apixaban [Eliquis] 5 mg PO BID 14 Days #28 tablet 11/04/17 10/24/18 Unknown Rx Antacid [Alum-Mag Hydrox-Simeth 30 ml PO Q4H PRN #30 oral.liqd 10/27/18 Unknown Rx [id number]/5Ml] Bisacodyl [Dulcolax suppos] 10 mg MD QDAY PRN #30 supp.rect 10/27/18 Unknown Rx Carvedilol [Coreg] 25 mg PO BID #60 tablet 10/27/18 Unknown Rx Docusate Sodium [Colace CAP] 100 mg PO BID #30 capsule 10/27/18 Unknown Rx Famotidine [Pepcid] 10 mg PO BID #30 tablet 10/27/18 Unknown Rx Furosemide [Lasix TAB] 40 mg PO QDAY #30 tablet 10/27/18 Unknown Rx Sodium Bicarbonate 650 mg PO BID #20 tablet 10/27/18 Unknown Rx amLODIPine [Norvasc] 10 mg PO QDAY #30 tablet 10/27/18 Unknown Rx cloNIDine [Catapres] 0.2 mg PO Q4H PRN #30 tablet 10/27/18 Unknown Rx oxyCODONE /ACETAMINOPHEN [Percocet 1 tab PO Q6HR PRN #14 tablet 10/27/18 Unknown Rx 5/325] Active Meds: Active Medications Acetaminophen (Tylenol) 650 mg PO Q4H PRN PRN Reason: Pain MILD(1-3)/Fever >100.5/VELA Al Hydrox/Mg Hydrox/Simethicone (Alum-Mag Hydrox-Simeth [id number]/5ml) 30 ml PO Q4H PRN PRN Reason: Indigestion Amantadine HCl (Symmetrel) 200 mg PO DAILY [facility] Last Admin: 10/28/18 10:04 Dose: 200 mg Documented by: Amlodipine Besylate (Norvasc) 10 mg PO QDAY [facility] Last Admin: 10/28/18 10:04 Dose: 10 mg Documented by: Bisacodyl (Dulcolax) 10 mg MD QDAY PRN PRN Reason: Constipation Carbidopa/Levodopa (Sinemet Er) 1 each PO QID [facility] Last Admin: 10/28/18 10:04 Dose: 1 each Documented by: Carvedilol (Coreg) 25 mg PO BID [facility] Last Admin: 10/28/18 10:04 Dose: 25 mg Documented by: Clonidine HCl (Catapres) 0.2 mg PO Q4H PRN PRN Reason: Blood Pressure Docusate Sodium (Colace) 100 mg PO BID [facility] Last Admin: 10/28/18 10:03 Dose: 100 mg Documented by: Famotidine (Pepcid) 10 mg PO BID [facility] Last Admin: 10/28/18 10:04 Dose: 10 mg Documented by: Furosemide (Lasix) 40 mg PO QDAY [facility] Last Admin: 10/28/18 10:04 Dose: 40 mg Documented by: Heparin Sodium (Porcine) (Heparin) 5,000 unit SUB-Q Q12HR [facility] Last Admin: 10/28/18 10:04 Dose: 5,000 unit Documented by: Sodium Chloride (Nacl 0.9% 1000 Ml) 1,000 mls @ 75 mls/hr IV DIRECT [facility] Lidocaine HCl (Xylocaine Topical 4%) 2.5 ml TP TID PRN PRN Reason: Pain, Moderate (4-6) Last Admin: 10/27/18 17:44 Dose: 2.5 ml Documented by: Morphine Sulfate (Morphine) 1 mg IV Q4H PRN PRN Reason: Pain, Moderate (4-6) Nitroglycerin (Nitrostat) 0.4 mg SL .Q5MIN PRN PRN Reason: Chest Pain Ondansetron HCl (Zofran) 4 mg IV Q8H PRN PRN Reason: Nausea And Vomiting Sodium Bicarbonate (Sodium Bicarbonate) 650 mg PO BID [facility] Last Admin: 10/28/18 10:03 Dose: 650 mg Documented by: Sodium Chloride (Sodium Chloride Flush Syringe 10 Ml) 10 ml IV BID [facility] Last Admin: 10/28/18 10:04 Dose: 10 ml Documented by: Sodium Chloride (Sodium Chloride Flush Syringe 10 Ml) 10 ml IV PRN PRN PRN Reason: LINE FLUSH Mental Status Exam - Vital signs Last Vital Signs Temp 98.1 F 10/28/18 12:32 Pulse 73 10/28/18 12:32 Resp 16 10/28/18 12:32 BP 146/65 10/28/18 12:32 Pulse Ox 97 10/28/18 12:32 - Exam Narrative exam: Mental Status Exam Appearance: calm Behavior: regular eye contact Speech: regular rate and tone Mood: "mixed emotions" Affect: congruent to mood Thought Process: organized; linear Thought Content: no gestures of SI/HI's, A/VH's, and delusions Motor Activity: ambulatory Cognition: A/O x 3 Insight: fair Judgment: fair Results Result Diagrams: 10/23/18 19:18 10/27/18 13:32 All other labs normal. Assessment and Plan Assessment and plan: Impression: No PPHx. MDD, recurrent, severe, without psychosis. Today the patient is calm and cooperative during the assessment. She denies SI/HI's, A/VH's, amd delusions. Recommendation/Plan: 1. Will reassess in 24 hour. 2. Recommended Remeron 7.5mg po QHS depression. Patient refuses. At this time patient prefers talk therapy. Disposition: Will reassess in 24 hours. Will staff with Dr. Tona Sandoval.
--- NOTE | 2018-10-28 16:54 | Progress Note ---
Assessment and Plan Assessment and plan: Patient is a 78 year old female with PMHX of hypertension and Parkinson's disease who presented to the ED on account of 3 days history of epigastric pain radiating to the chest. She described it as burning in nature and rated as 7/10. Pain waxes and wanes. No known aggravating factors but pain is slightly relieved with cold water. She has associated palpitation, diaphoresis and headaches. She denies shortness of breath, cough, fever, chills, sore throat, runny nose or congestion. She admits to chronic bilateral leg swelling but not orthopnea or PND. No nausea, vomiting, abdominal pain, constipation, diarrhea, dysuria, frequency, lightheadedness, syncope or loss of consciousness. No reported history of recent stress test. Patient was seen and examined, cardiology was consulted and recommended conservative management due to patients frailty and not a candidate for aggressive cardiac evaluation and therapy. Patient was also seen by equipment installation professional and was noted to have a right upper ext AV fistula which is matured with appropriate thrill and bruit. Will follow with nephrology in 2 weeks. Wound care evaluated and recommended wound vac, considering the patients clinically condition it is important that this patient be in a nursing facility for rehab and also wound management. She is non ambulatory family requested mental health eval due to personality change, while i have not witnessed this, the grandson is adamant about this, Mental health consulted. CT brain also done and is negative. Atypical Chest pain CAD NSTEMI TYPE 2 Parkinson's disease Chronic decubitus ulcers ESRD CKD (chronic kidney disease), stage V Hypertensive chronic kidney disease with stage 1 through stage 4 chronic kidney disease, or unspecified chronic kidney disease Anemia in CKD (chronic kidney disease) Localized edema Metabolic acidosis Plan Continue supportive care No aggressive cardiac work up or intervention planned Head ct checked, negative for acute disease Mental Health consult Continue wound care and HD while in house DVT prophylaxis with heparin DVT; DC back to SNF once wound vac and SNF identified. Plan discussed with case management and Family History Interval history: Patient seen and examined, lethargic, no other complaints. awaiting wound vac, also waiting for SNF placement Hospitalist Physical - Physical exam Narrative exam: Not in cardiopulmonary distress. The patient appeared well nourished and normally developed. Vital signs as documented. Head exam is unremarkable. No scleral icterus . Neck is without jugular venous distension, thyromegaly, or carotid bruits. Lungs are clear to auscultation. Cardiac exam reveals regular rate and Rhythm. Abdominal exam reveals normal bowel sounds. Extremities are nonedematous. PHYSICAL THER: Alert and oriented 3. No focal weakness. SKIN: Stage 4 pressure ulcer at the sacrum, with good granulation tissue - Constitutional Vitals: Temp Pulse Resp BP Pulse Ox 98.1 F 73 16 146/65 97 10/28/18 12:32 10/28/18 12:32 10/28/18 12:32 10/28/18 12:32 10/28/18 12:32 General appearance: Present: no acute distress, cachectic Results - Labs CBC & Chem 7: 10/23/18 19:18 10/27/18 13:32 Labs: Laboratory Last Values WBC 5.0 K/mm3 (4.5-11.0) 10/23/18 19:18 RBC 4.10 M/mm3 (3.65-5.03) 10/23/18 19:18 Hgb 10.4 gm/dl (10.1-14.3) 10/23/18 19:18 Hct 32.9 % (30.3-42.9) 10/23/18 19:18 MCV 80 fl (79-97) 10/23/18 19:18 MCH 25 pg (28-32) L 10/23/18 19:18 MCHC 32 % (30-34) 10/23/18 19:18 RDW 20.1 % (13.2-15.2) H 10/23/18 19:18 Plt Count 276 K/mm3 (140-440) 10/23/18 19:18 Lymph % (Auto) 30.3 % (13.4-35.0) 10/23/18 19:18 Lares % (Auto) 10.5 % (0.0-7.3) H 10/23/18 19:18 Eos % (Auto) 0.8 % (0.0-4.3) 10/23/18 19:18 Baso % (Auto) 0.3 % (0.0-1.8) 10/23/18 19:18 Lymph # 1.5 K/mm3 (1.2-5.4) 10/23/18 19:18 Lares # 0.5 K/mm3 (0.0-0.8) 10/23/18 19:18 Eos # 0.0 K/mm3 (0.0-0.4) 10/23/18 19:18 Baso # 0.0 K/mm3 (0.0-0.1) 10/23/18 19:18 Seg Neutrophils % 58.1 % (40.0-70.0) 10/23/18 19:18 Seg Neutrophils # 2.9 K/mm3 (1.8-7.7) 10/23/18 19:18 Sodium 144 mmol/L (137-145) 10/27/18 13:32 Potassium 3.7 mmol/L (3.6-5.0) 10/27/18 13:32 Chloride 109.4 mmol/L (98-107) H 10/27/18 13:32 Carbon Dioxide 22 mmol/L (22-30) 10/27/18 13:32 Anion Gap 16 mmol/L 10/27/18 13:32 BUN 28 mg/dL (7-17) H 10/27/18 13:32 Creatinine 1.6 mg/dL (0.7-1.2) H 10/27/18 13:32 Estimated GFR 38 ml/min 10/27/18 13:32 BUN/Creatinine Ratio 18 % 10/27/18 13:32 Glucose 92 mg/dL (65-100) 10/27/18 13:32 Calcium 8.8 mg/dL (8.4-10.2) 10/27/18 13:32 Iron 38 ug/dL (37-170) 10/24/18 14:20 TIBC 170 mcg/dL (250-450) L 10/24/18 14:20 Ferritin 211.2 ng/mL (13.0-400.0) 10/24/18 14:20 Troponin T 0.045 ng/mL (0.00-0.029) H 10/24/18 00:36 Triglycerides 66 mg/dL (2-149) 10/23/18 19:18 Cholesterol 173 mg/dL (50-199) 10/23/18 19:18 LDL Cholesterol Direct 104 mg/dL (50-130) 10/23/18 19:18 HDL Cholesterol 65 mg/dL (40-59) H 10/23/18 19:18 Cholesterol/HDL Ratio 2.66 % 10/23/18 19:18 Active Medications - Current Medications Current Medications: Generic Name Dose Route Start Last Admin Trade Name Freq PRN Reason Stop Dose Admin Acetaminophen 650 mg 10/24/18 03:04 Tylenol PO Q4H PRN Pain MILD(1-3)/Fever >100.5/VELA Al Hydrox/Mg Hydrox/Simethicone 30 ml 10/24/18 03:04 Alum-Mag Hydrox-Simeth [id number]/5ml PO Q4H PRN Indigestion Amantadine HCl 200 mg 10/26/18 10:00 10/28/18 10:04 Symmetrel PO 200 mg DAILY JUSTIN Administration Amlodipine Besylate 10 mg 10/24/18 03:47 10/28/18 10:04 Norvasc PO 10 mg QDAY JUSTIN Administration Bisacodyl 10 mg 10/24/18 22:00 Dulcolax GA QDAY PRN Constipation Carbidopa/Levodopa 1 each 10/26/18 18:00 10/28/18 14:00 Sinemet Er PO 1 each QID JUSTIN Administration Carvedilol 25 mg 10/24/18 04:00 10/28/18 10:04 Coreg PO 25 mg BID JUSTIN Administration Clonidine HCl 0.2 mg 10/24/18 03:47 Catapres PO Q4H PRN Blood Pressure Docusate Sodium 100 mg 10/24/18 10:00 10/28/18 10:03 Colace PO 100 mg BID JUSTIN Administration Famotidine 10 mg 10/25/18 10:00 10/28/18 10:04 Pepcid PO 10 mg BID JUSTIN Administration Furosemide 40 mg 10/25/18 10:00 10/28/18 10:04 Lasix PO 40 mg QDAY JUSTIN Administration Heparin Sodium (Porcine) 5,000 unit 10/24/18 10:00 10/28/18 10:04 Heparin SUB-Q 5,000 unit Q12HR JUSTIN Administration Sodium Chloride 1,000 mls @ 75 mls/hr 10/24/18 04:00 Nacl 0.9% 1000 Ml IV DIRECT JUSTIN Lidocaine HCl 2.5 ml 10/27/18 16:06 10/27/18 17:44 Xylocaine Topical 4% TP 2.5 ml TID PRN Administration Pain, Moderate (4-6) Morphine Sulfate 1 mg 10/24/18 03:04 Morphine IV Q4H PRN Pain, Moderate (4-6) Nitroglycerin 0.4 mg 10/24/18 03:07 Nitrostat SL .Q5MIN PRN Chest Pain Ondansetron HCl 4 mg 10/24/18 03:04 Zofran IV Q8H PRN Nausea And Vomiting Sodium Bicarbonate 650 mg 10/25/18 22:00 10/28/18 10:03 Sodium Bicarbonate PO 650 mg BID UJSTIN Administration Sodium Chloride 10 ml 10/24/18 10:00 10/28/18 10:04 Sodium Chloride Flush Syringe 10 Ml IV 10 ml BID JUSTIN Administration Sodium Chloride 10 ml 10/24/18 03:04 Sodium Chloride Flush Syringe 10 Ml IV PRN PRN LINE FLUSH Nutrition/Malnutrition Assess - Dietary Evaluation Nutrition/Malnutrition Findings: Nutrition Notes Start: 10/24/18 12:57 Freq: Status: Active Protocol: Document 10/28/18 10:00 SA (Rec: 10/28/18 10:35 SA [id number]) Co-Sign 10/28/18 10:00 LP Nutrition Notes Initial or Follow up Reassessment Current Diagnosis Decubitus(Pressure Ulcer), Hypertension Other Pertinent Diagnosis Parkinson's Current Diet Renal Labs/Tests Cl: 109 BUN: 26 Cr: 1.6 Pertinent Medications Reviewed Height 5 ft 7 in Weight 71.5 kg Edwards Body Weight (kg) 61.36 BMI 24.7 Weight Status Appropriate Subjective/Other Information Patient reports eating 50% of meals at hospital. Pt states appetite is not good due to kidney pain. Pt reports nausea , vomiting, and constipation. Pt states UBW after wt loss being 160#. Pt drinking 100% of ONS. Pt interested in bobby . Percent of energy/protein needs met: 70%/82% Burn Absent Trauma Absent #2 Nutrition Diagnosis Malnutrition Diagnosis Progress(for reassessment Continues documentation) #1 Nutrition Diagnosis Increased nutrient needs ( specify in comment below) Diagnosis Progress(for reassessment Continues documentation) Is patient on ventilator? No Is Patient Ambulatory and/or Out of Bed No REE-([facility]-confined to bed) 1491.588 Kcal/Kg value to use for calculation 30 Approximate Energy Requirements Using 2145 kcal/Kg Calculation Used for Recommendations Kcal/kg Additional Notes protein (1.2-1.5g/kg): 71-88g daily fluid: 1mL/kcal or per MD Nutrition Intervention Change Diet Order: continue current Add Supplement/Snack (indicate name/kcal Nepro 1 daily strawberry and /protein ) Bobby 2 daily Provides kCal: 615 Provides Protein (gm) 24 Goal #1 Meet at least 75% of calorie and protein needs via PO and ONS intakes Goal #2 Wound healing Anticipated Discharge Needs: Renal diet Follow-Up By: 10/30/18 Additional Comments F/U: PO and ONS intakes
--- NOTE | 2018-10-29 09:40 | Progress Note ---
Assessment and Plan - Patient Problems (1) CKD (chronic kidney disease), stage V Current Visit: Yes Status: Chronic Plan to address problem: Patient has right upper extremity AV fistula which seems to have matured at this time with appropriate thrill and bruit noted on examination. There is no acute indications for initiating renal replacement therapy at present time. Serum creatinine is actually lower than it has been on previous lab studies. I am concerned that this may also be in the setting of worsening cachexia and overall decreased appetite and loss of muscle mass. There is no acute indications for dialysis initiation at this point. Overall renal function is stable. Patient needs to follow up with Dr Banerjee, nephrology, 1-2 weeks post discharge. From a renal standpoint patient is stable for discharge. (2) Hypertensive chronic kidney disease with stage 1 through stage 4 chronic kidney disease, or unspecified chronic kidney disease Current Visit: Yes Status: Chronic Plan to address problem: Continue current regimen and will monitor closely. Placed on amlodipine 10 mg. (3) Elevated troponin Current Visit: Yes Status: Acute Plan to address problem: Mild elevations noted in this patient with advanced chronic kidney disease. Chest pain symptoms have resolved at this time. Conservative management per cardiology recommendations. (4) Anemia in CKD (chronic kidney disease) Current Visit: Yes Status: Chronic Qualifiers: Chronic kidney disease stage: stage 5, not on chronic dialysis Qualified Code(s): N18.5 - Chronic kidney disease, stage 5; D63.1 - Anemia in chronic kidney disease Plan to address problem: Hemoglobin levels are stable at this time. Would assess iron studies at this time. There is no acute indications for RADHA therapy at present time. We'll continue to monitor. (5) Localized edema Current Visit: Yes Status: Chronic Plan to address problem: Have restarted patient on home regimen of Lasix 40 mg by mouth daily. (6) Metabolic acidosis Current Visit: Yes Status: Acute Plan to address problem: Will add on sodium bicarb 650 mg PO BID. Subjective Date of service: 10/29/18 Interval history: No acute changes overnight. Pending SNF placement. Labs stable. Objective - Vital Signs Vital signs: Vital Signs - 12hr 10/28/18 23:19 Temperature 98.4 F Pulse Rate 59 L Respiratory 15 Rate Blood Pressure 142/67 O2 Sat by Pulse 97 Oximetry - General Appearance General appearance: appears stated age, frail EENT: ATNC, PERRL Neck: no JVD, no thyromegaly Respiratory: Present: Clear to Ascultation Cardiology: regular, S1S2 Gastrointestinal: normal, normoactive bowel sounds Integumentary: no rash, warm and dry Neurologic: alert and oriented x3, other (baseline tremors secondary to h/o parkinsons) Psychiatric: cooperative - Lab 10/23/18 19:18 10/27/18 13:32 Most recent lab results Calcium 8.8 mg/dL (8.4-10.2) 10/27/18 13:32 - Imaging Chest x-ray: pending - Allied health notes Allied health notes reviewed: nursing Medications & Allergies - Medications Allergies/Adverse Reactions: Allergies aspirin Allergy (Verified 10/23/18 17:48) Swelling latex Allergy (Verified 10/23/18 17:48) rash, blisters Penicillins Allergy (Verified 10/23/18 17:48) Unknown sulfamethoxazole [From Bactrim] Allergy (Verified 10/23/18 17:48) Swelling trimethoprim [From Bactrim] Allergy (Verified 10/23/18 17:48) Swelling vancomycin Adverse Reaction (Verified 10/23/18 17:48) Itching STARTED ITCHING TO AXILLA AND NECK AFTER RECEIVING VANCOMYCIN IV. Home Medications: Home Medications Medication Instructions Recorded Confirmed Last Taken Type Carbidopa/Levodopa ER 50-200 1 each PO QID 04/30/14 10/24/18 11/04/17 History [Sinemet ER 50/200] 1 Amantadine HCl [Amantadine] 200 mg PO DAILY 08/06/17 10/24/18 11/03/17 History 200mg Ascorbic Acid [Vitamin C] 300 mg PO DAILY 08/06/17 10/24/18 11/03/17 History 300mg Folic Acid [Folvite] 25 mg PO DAILY 08/06/17 10/24/18 11/03/17 History 25mg Ubidecarenone [Co Q-10] 100 mg PO DAILY 08/06/17 10/24/18 11/03/17 History 100mg Cholecalciferol (Vitamin D3) 50,000 unit PO 1XW 10/14/17 10/24/18 11/03/17 History [Vitamin D3] 50,000 units Apixaban [Eliquis] 5 mg PO BID 14 Days #28 tablet 11/04/17 10/24/18 Unknown Rx Antacid [Alum-Mag Hydrox-Simeth 30 ml PO Q4H PRN #30 oral.liqd 10/27/18 Unknown Rx [id number]/5Ml] Bisacodyl [Dulcolax suppos] 10 mg [place] QDAY PRN #30 supp.rect 10/27/18 Unknown Rx Carvedilol [Coreg] 25 mg PO BID #60 tablet 10/27/18 Unknown Rx Docusate Sodium [Colace CAP] 100 mg PO BID #30 capsule 10/27/18 Unknown Rx Famotidine [Pepcid] 10 mg PO BID #30 tablet 10/27/18 Unknown Rx Furosemide [Lasix TAB] 40 mg PO QDAY #30 tablet 10/27/18 Unknown Rx Sodium Bicarbonate 650 mg PO BID #20 tablet 10/27/18 Unknown Rx amLODIPine [Norvasc] 10 mg PO QDAY #30 tablet 10/27/18 Unknown Rx cloNIDine [Catapres] 0.2 mg PO Q4H PRN #30 tablet 10/27/18 Unknown Rx oxyCODONE /ACETAMINOPHEN [Percocet 1 tab PO Q6HR PRN #14 tablet 10/27/18 Unknown Rx 5/325] Active Medications: Generic Name Dose Route Start Last Admin Trade Name Freq PRN Reason Stop Dose Admin Acetaminophen 650 mg 10/24/18 03:04 Tylenol PO Q4H PRN Pain MILD(1-3)/Fever >100.5/VELA Al Hydrox/Mg Hydrox/Simethicone 30 ml 10/24/18 03:04 Alum-Mag Hydrox-Simeth [id number]/5ml PO Q4H PRN Indigestion Amantadine HCl 200 mg 10/26/18 10:00 10/28/18 10:04 Symmetrel PO 200 mg DAILY JUSTIN Administration Amlodipine Besylate 10 mg 10/24/18 03:47 10/28/18 10:04 Norvasc PO 10 mg QDAY JUSTIN Administration Bisacodyl 10 mg 10/24/18 22:00 Dulcolax [place] QDAY PRN Constipation Carbidopa/Levodopa 1 each 10/26/18 18:00 10/28/18 21:12 Sinemet Er PO 1 each QID JUSTIN Administration Carvedilol 25 mg 10/24/18 04:00 10/28/18 21:13 Coreg PO 25 mg BID JUSTIN Administration Clonidine HCl 0.2 mg 10/24/18 03:47 Catapres PO Q4H PRN Blood Pressure Docusate Sodium 100 mg 10/24/18 10:00 10/28/18 21:11 Colace PO 100 mg BID JUSTIN Administration Famotidine 10 mg 10/25/18 10:00 10/28/18 21:12 Pepcid PO 10 mg BID JUSTIN Administration Furosemide 40 mg 10/25/18 10:00 10/28/18 10:04 Lasix PO 40 mg QDAY JUSTIN Administration Heparin Sodium (Porcine) 5,000 unit 10/24/18 10:00 10/28/18 21:12 Heparin SUB-Q 5,000 unit Q12HR JUSTIN Administration Sodium Chloride 1,000 mls @ 75 mls/hr 10/24/18 04:00 Nacl 0.9% 1000 Ml IV DIRECT JUSTIN Lidocaine HCl 2.5 ml 10/27/18 16:06 10/27/18 17:44 Xylocaine Topical 4% TP 2.5 ml TID PRN Administration Pain, Moderate (4-6) Morphine Sulfate 1 mg 10/24/18 03:04 Morphine IV Q4H PRN Pain, Moderate (4-6) Nitroglycerin 0.4 mg 10/24/18 03:07 Nitrostat SL .Q5MIN PRN Chest Pain Ondansetron HCl 4 mg 10/24/18 03:04 Zofran IV Q8H PRN Nausea And Vomiting Sodium Bicarbonate 650 mg 10/25/18 22:00 10/28/18 21:13 Sodium Bicarbonate PO 650 mg BID JUSTIN Administration Sodium Chloride 10 ml 10/24/18 10:00 10/28/18 21:13 Sodium Chloride Flush Syringe 10 Ml IV 10 ml BID JUSTIN Administration Sodium Chloride 10 ml 10/24/18 03:04 Sodium Chloride Flush Syringe 10 Ml IV PRN PRN LINE FLUSH
[2018-10-29] MEDS: SODIUM BICARBONATE PO SCH ×2 (10:15→21:57)
[2018-10-29] MEDS: LASIX PO SCH (10:15)
[2018-10-29] MEDS: PEPCID PO SCH ×2 (10:15→21:57)
[2018-10-29] MEDS: NORVASC PO SCH (10:15)
[2018-10-29] MEDS: COREG PO SCH ×2 (10:16→21:56)
[2018-10-29] MEDS: COLACE PO SCH ×2 (10:16→21:57)
[2018-10-29] MEDS: SYMMETREL PO SCH (10:16)
[2018-10-29] MEDS: SINEMET PO SCH ×4 (10:17→21:57)
[2018-10-29] MEDS: SODIUM CHLORIDE FLUSH SYRINGE 10 ML IV SCH ×2 (10:17→21:57)
[2018-10-29] MEDS: HEPARIN SUB-Q SCH ×2 (10:18→21:55)
--- NOTE | 2018-10-29 16:35 | Progress Note ---
Assessment and Plan Assessment and plan: Patient is a 78 year old female with PMHX of hypertension and Parkinson's disease who presented to the ED on account of 3 days history of epigastric pain radiating to the chest. She described it as burning in nature and rated as 7/10. Pain waxes and wanes. No known aggravating factors but pain is slightly relieved with cold water. She has associated palpitation, diaphoresis and headaches. She denies shortness of breath, cough, fever, chills, sore throat, runny nose or congestion. She admits to chronic bilateral leg swelling but not orthopnea or PND. No nausea, vomiting, abdominal pain, constipation, diarrhea, dysuria, frequency, lightheadedness, syncope or loss of consciousness. No reported history of recent stress test. Patient was seen and examined, cardiology was consulted and recommended conservative management due to patients frailty and not a candidate for aggressive cardiac evaluation and therapy. Patient was also seen by psychometrist and was noted to have a right upper ext AV fistula which is matured with appropriate thrill and bruit. Will follow with nephrology in 2 weeks. Wound care evaluated and recommended wound vac, considering the patients clinically condition it is important that this patient be in a nursing facility for rehab and also wound management. She is non ambulatory family requested mental health eval due to personality change, while i have not witnessed this, the grandson is adamant about this, Mental health consulted. CT brain also done and is negative. Psych evalauated: Impression: No PPHx. MDD, recurrent, severe, without psychosis. Today the patient is calm and cooperative during the assessment. She denies SI/HI's, A/VH's, amd delusions. Recommendation/Plan: 1. Will reassess in 24 hour. 2. Recommended Remeron 7.5mg po QHS depression. Patient refuses. At this time patient prefers talk therapy. Atypical Chest pain CAD NSTEMI TYPE 2 Parkinson's disease Chronic decubitus ulcers ESRD CKD (chronic kidney disease), stage V Hypertensive chronic kidney disease with stage 1 through stage 4 chronic kidney disease, or unspecified chronic kidney disease Anemia in CKD (chronic kidney disease) Localized edema Metabolic acidosis Depression-Major Plan Continue supportive care No aggressive cardiac work up or intervention planned Head ct checked, negative for acute disease Psych input noted. Continue wound care and HD while in house DVT prophylaxis with heparin DVT; DC back to SNF once wound vac and SNF identified. Plan discussed with case management and Family History Interval history: Patient seen and examined, NO new complaints. awaiting wound vac, also waiting for SNF placement Hospitalist Physical - Physical exam Narrative exam: Not in cardiopulmonary distress. The patient appeared well nourished and normally developed. Vital signs as documented. Head exam is unremarkable. No scleral icterus . Neck is without jugular venous distension, thyromegaly, or carotid bruits. Lungs are clear to auscultation. Cardiac exam reveals regular rate and Rhythm. Abdominal exam reveals normal bowel sounds. Extremities are nonedematous. [employer]: Alert and oriented 3. No focal weakness. SKIN: Stage 4 pressure ulcer at the sacrum, with good granulation tissue - Constitutional Vitals: Temp Pulse Resp BP Pulse Ox 97.6 F 72 18 149/63 91 10/29/18 09:43 10/29/18 10:16 10/29/18 09:43 10/29/18 10:16 10/29/18 09:43 General appearance: Present: no acute distress, cachectic Results - Labs CBC & Chem 7: 10/23/18 19:18 10/27/18 13:32 Labs: Laboratory Last Values WBC 5.0 K/mm3 (4.5-11.0) 10/23/18 19:18 RBC 4.10 M/mm3 (3.65-5.03) 10/23/18 19:18 Hgb 10.4 gm/dl (10.1-14.3) 10/23/18 19:18 Hct 32.9 % (30.3-42.9) 10/23/18 19:18 MCV 80 fl (79-97) 10/23/18 19:18 MCH 25 pg (28-32) L 10/23/18 19:18 MCHC 32 % (30-34) 10/23/18 19:18 RDW 20.1 % (13.2-15.2) H 10/23/18 19:18 Plt Count 276 K/mm3 (140-440) 10/23/18 19:18 Lymph % (Auto) 30.3 % (13.4-35.0) 10/23/18 19:18 Whitley % (Auto) 10.5 % (0.0-7.3) H 10/23/18 19:18 Eos % (Auto) 0.8 % (0.0-4.3) 10/23/18 19:18 Baso % (Auto) 0.3 % (0.0-1.8) 10/23/18 19:18 Lymph # 1.5 K/mm3 (1.2-5.4) 10/23/18 19:18 Whitley # 0.5 K/mm3 (0.0-0.8) 10/23/18 19:18 Eos # 0.0 K/mm3 (0.0-0.4) 10/23/18 19:18 Baso # 0.0 K/mm3 (0.0-0.1) 10/23/18 19:18 Seg Neutrophils % 58.1 % (40.0-70.0) 10/23/18 19:18 Seg Neutrophils # 2.9 K/mm3 (1.8-7.7) 10/23/18 19:18 Sodium 144 mmol/L (137-145) 10/27/18 13:32 Potassium 3.7 mmol/L (3.6-5.0) 10/27/18 13:32 Chloride 109.4 mmol/L (98-107) H 10/27/18 13:32 Carbon Dioxide 22 mmol/L (22-30) 10/27/18 13:32 Anion Gap 16 mmol/L 10/27/18 13:32 BUN 28 mg/dL (7-17) H 10/27/18 13:32 Creatinine 1.6 mg/dL (0.7-1.2) H 10/27/18 13:32 Estimated GFR 38 ml/min 10/27/18 13:32 BUN/Creatinine Ratio 18 % 10/27/18 13:32 Glucose 92 mg/dL (65-100) 10/27/18 13:32 Calcium 8.8 mg/dL (8.4-10.2) 10/27/18 13:32 Iron 38 ug/dL (37-170) 10/24/18 14:20 TIBC 170 mcg/dL (250-450) L 10/24/18 14:20 Ferritin 211.2 ng/mL (13.0-400.0) 10/24/18 14:20 Troponin T 0.045 ng/mL (0.00-0.029) H 10/24/18 00:36 Triglycerides 66 mg/dL (2-149) 10/23/18 19:18 Cholesterol 173 mg/dL (50-199) 10/23/18 19:18 LDL Cholesterol Direct 104 mg/dL (50-130) 10/23/18 19:18 HDL Cholesterol 65 mg/dL (40-59) H 10/23/18 19:18 Cholesterol/HDL Ratio 2.66 % 10/23/18 19:18 Active Medications - Current Medications Current Medications: Generic Name Dose Route Start Last Admin Trade Name Freq PRN Reason Stop Dose Admin Acetaminophen 650 mg 10/24/18 03:04 Tylenol PO Q4H PRN Pain MILD(1-3)/Fever >100.5/VELA Al Hydrox/Mg Hydrox/Simethicone 30 ml 10/24/18 03:04 Alum-Mag Hydrox-Simeth [id number]/5ml PO Q4H PRN Indigestion Amantadine HCl 200 mg 10/26/18 10:00 10/29/18 10:16 Symmetrel PO 200 mg DAILY JUSTIN Administration Amlodipine Besylate 10 mg 10/24/18 03:47 10/29/18 10:15 Norvasc PO 10 mg QDAY UJSTIN Administration Bisacodyl 10 mg 10/24/18 22:00 Dulcolax [place] QDAY PRN Constipation Carbidopa/Levodopa 1 each 10/26/18 18:00 10/29/18 13:58 Sinemet Er PO 1 each QID JUSTIN Administration Carvedilol 25 mg 10/24/18 04:00 10/29/18 10:16 Coreg PO 25 mg BID JUSTIN Administration Clonidine HCl 0.2 mg 10/24/18 03:47 Catapres PO Q4H PRN Blood Pressure Docusate Sodium 100 mg 10/24/18 10:00 10/29/18 10:16 Colace PO 100 mg BID JUSTIN Administration Famotidine 10 mg 10/25/18 10:00 10/29/18 10:15 Pepcid PO 10 mg BID JUSTIN Administration Furosemide 40 mg 10/25/18 10:00 10/29/18 10:15 Lasix PO 40 mg QDAY JUSTIN Administration Heparin Sodium (Porcine) 5,000 unit 10/24/18 10:00 10/29/18 10:18 Heparin SUB-Q 5,000 unit Q12HR JUSTIN Administration Sodium Chloride 1,000 mls @ 75 mls/hr 10/24/18 04:00 Nacl 0.9% 1000 Ml IV DIRECT JUSTIN Lidocaine HCl 2.5 ml 10/27/18 16:06 10/27/18 17:44 Xylocaine Topical 4% TP 2.5 ml TID PRN Administration Pain, Moderate (4-6) Morphine Sulfate 1 mg 10/24/18 03:04 Morphine IV Q4H PRN Pain, Moderate (4-6) Nitroglycerin 0.4 mg 10/24/18 03:07 Nitrostat SL .Q5MIN PRN Chest Pain Ondansetron HCl 4 mg 10/24/18 03:04 Zofran IV Q8H PRN Nausea And Vomiting Sodium Bicarbonate 650 mg 10/25/18 22:00 10/29/18 10:15 Sodium Bicarbonate PO 650 mg BID JUSTIN Administration Sodium Chloride 10 ml 10/24/18 10:00 10/29/18 10:17 Sodium Chloride Flush Syringe 10 Ml IV 10 ml BID JUSTIN Administration Sodium Chloride 10 ml 10/24/18 03:04 Sodium Chloride Flush Syringe 10 Ml IV PRN PRN LINE FLUSH Nutrition/Malnutrition Assess - Dietary Evaluation Nutrition/Malnutrition Findings: Nutrition Notes Start: 10/24/18 12:57 Freq: Status: Active Protocol: Document 10/28/18 10:00 (Rec: 10/28/18 10:35 [id number]) Co-Sign 10/28/18 10:00 LP Nutrition Notes Initial or Follow up Reassessment Current Diagnosis Decubitus(Pressure Ulcer), Hypertension Other Pertinent Diagnosis Parkinson's Current Diet Renal Labs/Tests Cl: 109 BUN: 26 Cr: 1.6 Pertinent Medications Reviewed Height 5 ft 7 in Weight 71.5 kg Herman Body Weight (kg) 61.36 BMI 24.7 Weight Status Appropriate Subjective/Other Information Patient reports eating 50% of meals at hospital. Pt states appetite is not good due to kidney pain. Pt reports nausea , vomiting, and constipation. Pt states UBW after wt loss being 160#. Pt drinking 100% of ONS. Pt interested in bobby . Percent of energy/protein needs met: 70%/82% Burn Absent Trauma Absent #2 Nutrition Diagnosis Malnutrition Diagnosis Progress(for reassessment Continues documentation) #1 Nutrition Diagnosis Increased nutrient needs ( specify in comment below) Diagnosis Progress(for reassessment Continues documentation) Is patient on ventilator? No Is Patient Ambulatory and/or Out of Bed No REE-([facility]-confined to bed) 1491.588 Kcal/Kg value to use for calculation 30 Approximate Energy Requirements Using 2145 kcal/Kg Calculation Used for Recommendations Kcal/kg Additional Notes protein (1.2-1.5g/kg): 71-88g daily fluid: 1mL/kcal or per MD Nutrition Intervention Change Diet Order: continue current Add Supplement/Snack (indicate name/kcal Nepro 1 daily strawberry and /protein ) Bobby 2 daily Provides kCal: 615 Provides Protein (gm) 24 Goal #1 Meet at least 75% of calorie and protein needs via PO and ONS intakes Goal #2 Wound healing Anticipated Discharge Needs: Renal diet Follow-Up By: 10/30/18 Additional Comments F/U: PO and ONS intakes
--- NOTE | 2018-10-29 16:40 | Progress Note ---
Subjective - Reason for Consult Consult date: 10/29/18 Reason for consult: Psychiatric Follow-up Evaluation - Chief Complaint Chief complaint: " I feel fine." Patient is a 78 year old female who presents to the emergency room with chest pain. Today the patient is calm and cooperative during the assessment. She reports appropriate sleep and appetite. She denies SI/HI's, A/VH's, and delusions. Patient verbalizes that does not want to start medications for depression at this time. Patient reports that she is a member of [facility] and the purpose of the organization is to address one medical concern at a time, therefore she does not want to start any new medication. Per patient she will follow-up on an outpatient basis. Mental Status Exam - Vital signs Last Vital Signs Temp 97.6 F 10/29/18 09:43 Pulse 72 10/29/18 10:16 Resp 18 10/29/18 09:43 BP 149/63 10/29/18 10:16 Pulse Ox 91 10/29/18 09:43 - Exam Narrative exam: Mental Status Exam Appearance: calm Behavior: regular eye contact Speech: regular rate and tone Mood: "I feel fine. " Affect: congruent to mood Thought Process: organized; circumstantial Thought Content: no gestures of SI/HI's, A/VH's, and delusions Motor Activity: ambulatory Cognition: A/O x 3 Insight: fair Judgment: fair Assessment and Plan Impression: No PPHx. MDD, recurrent, severe, without psychosis. Today the patient is calm and cooperative during the assessment. She denies SI/HI's, A/VH's, amd delusions. She continues to refuse medication for depression. Recommendation/Plan: 1. Psychiatry will sign off. 2. Recommended Remeron 7.5mg po QHS depression. Patient refuses. At this time patient prefers talk therapy. Disposition: Patient will follow-up with outpatient psychiatric services. Will staff with Dr. Tona Sandoval.
--- NOTE | 2018-10-30 09:01 | Progress Note ---
Assessment and Plan - Patient Problems (1) CKD (chronic kidney disease), stage V Current Visit: Yes Status: Chronic Plan to address problem: Patient has right upper extremity AV fistula which seems to have matured at this time with appropriate thrill and bruit noted on examination. There is no acute indications for initiating renal replacement therapy at present time. Serum creatinine is actually lower than it has been on previous lab studies. I am concerned that this may also be in the setting of worsening cachexia and overall decreased appetite and loss of muscle mass. There is no acute indications for dialysis initiation at this point. Overall renal function is stable. Patient needs to follow up with Dr Banerjee, nephrology, 1-2 weeks post discharge. From a renal standpoint patient is stable for discharge. (2) Hypertensive chronic kidney disease with stage 1 through stage 4 chronic kidney disease, or unspecified chronic kidney disease Current Visit: Yes Status: Chronic Plan to address problem: Continue current regimen and will monitor closely. Placed on amlodipine 10 mg. (3) Elevated troponin Current Visit: Yes Status: Acute Plan to address problem: Mild elevations noted in this patient with advanced chronic kidney disease. Chest pain symptoms have resolved at this time. Conservative management per cardiology recommendations. (4) Anemia in CKD (chronic kidney disease) Current Visit: Yes Status: Chronic Qualifiers: Chronic kidney disease stage: stage 5, not on chronic dialysis Qualified Code(s): N18.5 - Chronic kidney disease, stage 5; D63.1 - Anemia in chronic kidney disease Plan to address problem: Hemoglobin levels are stable at this time. Would assess iron studies at this time. There is no acute indications for RADHA therapy at present time. We'll continue to monitor. (5) Localized edema Current Visit: Yes Status: Chronic Plan to address problem: Have restarted patient on home regimen of Lasix 40 mg by mouth daily. (6) Metabolic acidosis Current Visit: Yes Status: Acute Plan to address problem: Will add on sodium bicarb 650 mg PO BID. Subjective Date of service: 10/30/18 Interval history: No acute issues. pending placement at this time. renal parameters are stable. Objective - Vital Signs Vital signs: Vital Signs - 12hr 10/29/18 10/30/18 22:24 03:52 Temperature 98.5 F 98.5 F Pulse Rate 68 66 Respiratory 14 19 Rate Blood Pressure 152/65 162/63 O2 Sat by Pulse 100 97 Oximetry - General Appearance General appearance: well-nourished, appears stated age EENT: ATNC, PERRL Neck: no JVD, no thyromegaly Respiratory: Present: Clear to Ascultation, Normal Exam Cardiology: regular, S1S2 Gastrointestinal: normal, normoactive bowel sounds Integumentary: warm and dry Neurologic: no focal deficit, no asterixis, alert and oriented x3 Psychiatric: mood/affect appropriate, cooperative - Lab 10/23/18 19:18 10/27/18 13:32 Most recent lab results Calcium 8.8 mg/dL (8.4-10.2) 10/27/18 13:32 - Allied health notes Allied health notes reviewed: nursing Medications & Allergies - Medications Allergies/Adverse Reactions: Allergies aspirin Allergy (Verified 10/23/18 17:48) Swelling latex Allergy (Verified 10/23/18 17:48) rash, blisters Penicillins Allergy (Verified 10/23/18 17:48) Unknown sulfamethoxazole [From Bactrim] Allergy (Verified 10/23/18 17:48) Swelling trimethoprim [From Bactrim] Allergy (Verified 10/23/18 17:48) Swelling vancomycin Adverse Reaction (Verified 10/23/18 17:48) Itching STARTED ITCHING TO AXILLA AND NECK AFTER RECEIVING VANCOMYCIN IV. Home Medications: Home Medications Medication Instructions Recorded Confirmed Last Taken Type Carbidopa/Levodopa ER 50-200 1 each PO QID 04/30/14 10/24/18 11/04/17 History [Sinemet ER 50/200] 1 Amantadine HCl [Amantadine] 200 mg PO DAILY 08/06/17 10/24/18 11/03/17 History 200mg Ascorbic Acid [Vitamin C] 300 mg PO DAILY 08/06/17 10/24/18 11/03/17 History 300mg Folic Acid [Folvite] 25 mg PO DAILY 08/06/17 10/24/18 11/03/17 History 25mg Ubidecarenone [Co Q-10] 100 mg PO DAILY 08/06/17 10/24/18 11/03/17 History 100mg Cholecalciferol (Vitamin D3) 50,000 unit PO 1XW 10/14/17 10/24/18 11/03/17 History [Vitamin D3] 50,000 units Apixaban [Eliquis] 5 mg PO BID 14 Days #28 tablet 11/04/17 10/24/18 Unknown Rx Antacid [Alum-Mag Hydrox-Simeth 30 ml PO Q4H PRN #30 oral.liqd 10/27/18 Unknown Rx [id number]/5Ml] Bisacodyl [Dulcolax suppos] 10 mg [place] QDAY PRN #30 supp.rect 10/27/18 Unknown Rx Carvedilol [Coreg] 25 mg PO BID #60 tablet 10/27/18 Unknown Rx Docusate Sodium [Colace CAP] 100 mg PO BID #30 capsule 10/27/18 Unknown Rx Famotidine [Pepcid] 10 mg PO BID #30 tablet 10/27/18 Unknown Rx Furosemide [Lasix TAB] 40 mg PO QDAY #30 tablet 10/27/18 Unknown Rx Sodium Bicarbonate 650 mg PO BID #20 tablet 10/27/18 Unknown Rx amLODIPine [Norvasc] 10 mg PO QDAY #30 tablet 10/27/18 Unknown Rx cloNIDine [Catapres] 0.2 mg PO Q4H PRN #30 tablet 10/27/18 Unknown Rx oxyCODONE /ACETAMINOPHEN [Percocet 1 tab PO Q6HR PRN #14 tablet 10/27/18 Unknown Rx 5/325] Active Medications: Generic Name Dose Route Start Last Admin Trade Name Freq PRN Reason Stop Dose Admin Acetaminophen 650 mg 10/24/18 03:04 Tylenol PO Q4H PRN Pain MILD(1-3)/Fever >100.5/VELA Al Hydrox/Mg Hydrox/Simethicone 30 ml 10/24/18 03:04 Alum-Mag Hydrox-Simeth [phone]/5ml PO Q4H PRN Indigestion Amantadine HCl 200 mg 10/26/18 10:00 10/29/18 10:16 Symmetrel PO 200 mg DAILY JUSTIN Administration Amlodipine Besylate 10 mg 10/24/18 03:47 10/29/18 10:15 Norvasc PO 10 mg QDAY JUSTIN Administration Bisacodyl 10 mg 10/24/18 22:00 Dulcolax [place] QDAY PRN Constipation Carbidopa/Levodopa 1 each 10/26/18 18:00 10/29/18 21:57 Sinemet Er PO 1 each QID JUSTIN Administration Carvedilol 25 mg 10/24/18 04:00 10/29/18 21:56 Coreg PO 25 mg BID JUSTIN Administration Clonidine HCl 0.2 mg 10/24/18 03:47 Catapres PO Q4H PRN Blood Pressure Docusate Sodium 100 mg 10/24/18 10:00 10/29/18 21:57 Colace PO 100 mg BID JUSTIN Administration Famotidine 10 mg 10/25/18 10:00 10/29/18 21:57 Pepcid PO 10 mg BID JUSTIN Administration Furosemide 40 mg 10/25/18 10:00 10/29/18 10:15 Lasix PO 40 mg QDAY JUSTIN Administration Heparin Sodium (Porcine) 5,000 unit 10/24/18 10:00 10/29/18 21:55 Heparin SUB-Q 5,000 unit Q12HR JUSTIN Administration Sodium Chloride 1,000 mls @ 75 mls/hr 10/24/18 04:00 Nacl 0.9% 1000 Ml IV DIRECT JUSTIN Lidocaine HCl 2.5 ml 10/27/18 16:06 10/27/18 17:44 Xylocaine Topical 4% TP 2.5 ml TID PRN Administration Pain, Moderate (4-6) Morphine Sulfate 1 mg 10/24/18 03:04 Morphine IV Q4H PRN Pain, Moderate (4-6) Nitroglycerin 0.4 mg 10/24/18 03:07 Nitrostat SL .Q5MIN PRN Chest Pain Ondansetron HCl 4 mg 10/24/18 03:04 Zofran IV Q8H PRN Nausea And Vomiting Sodium Bicarbonate 650 mg 10/25/18 22:00 10/29/18 21:57 Sodium Bicarbonate PO 650 mg BID JUSTIN Administration Sodium Chloride 10 ml 10/24/18 10:00 10/29/18 21:57 Sodium Chloride Flush Syringe 10 Ml IV 10 ml BID JUSTIN Administration Sodium Chloride 10 ml 10/24/18 03:04 Sodium Chloride Flush Syringe 10 Ml IV PRN PRN LINE FLUSH
[2018-10-30] MEDS: LASIX PO SCH (10:05)
[2018-10-30] MEDS: PEPCID PO SCH ×2 (10:05→22:31)
[2018-10-30] MEDS: HEPARIN SUB-Q SCH ×2 (10:05→21:44)
[2018-10-30] MEDS: NORVASC PO SCH (10:05)
[2018-10-30] MEDS: SYMMETREL PO SCH (10:05)
[2018-10-30] MEDS: SINEMET PO SCH ×4 (10:05→21:44)
[2018-10-30] MEDS: COREG PO SCH ×2 (10:05→21:44)
[2018-10-30] MEDS: COLACE PO SCH ×2 (10:05→21:45)
[2018-10-30] MEDS: SODIUM BICARBONATE PO SCH ×2 (10:09→21:44)
[2018-10-30] MEDS: SODIUM CHLORIDE FLUSH SYRINGE 10 ML IV SCH ×2 (10:12→21:45)
--- NOTE | 2018-10-30 16:10 | Progress Note ---
Assessment and Plan Assessment and plan: Patient is a 78 year old female with PMHX of hypertension and Parkinson's disease who presented to the ED on account of 3 days history of epigastric pain radiating to the chest. She described it as burning in nature and rated as 7/10. Pain waxes and wanes. No known aggravating factors but pain is slightly relieved with cold water. She has associated palpitation, diaphoresis and headaches. She denies shortness of breath, cough, fever, chills, sore throat, runny nose or congestion. She admits to chronic bilateral leg swelling but not orthopnea or PND. No nausea, vomiting, abdominal pain, constipation, diarrhea, dysuria, frequency, lightheadedness, syncope or loss of consciousness. No reported history of recent stress test. Patient was seen and examined, cardiology was consulted and recommended conservative management due to patients frailty and not a candidate for aggressive cardiac evaluation and therapy. Patient was also seen by cotton grader and was noted to have a right upper ext AV fistula which is matured with appropriate thrill and bruit. Will follow with nephrology in 2 weeks. Wound care evaluated and recommended wound vac, considering the patients clinically condition it is important that this patient be in a nursing facility for rehab and also wound management. She is non ambulatory family requested mental health eval due to personality change, while i have not witnessed this, the grandson is adamant about this, Mental health consulted. CT brain also done and is negative. Psych evalauated: Impression: No PPHx. MDD, recurrent, severe, without psychosis. Today the patient is calm and cooperative during the assessment. She denies SI/HI's, A/VH's, amd delusions. Recommendation/Plan: 1. Will reassess in 24 hour. 2. Recommended Remeron 7.5mg po QHS depression. Patient refuses. At this time patient prefers talk therapy. Atypical Chest pain CAD NSTEMI TYPE 2 Parkinson's disease Chronic decubitus ulcers ESRD CKD (chronic kidney disease), stage V Hypertensive chronic kidney disease with stage 1 through stage 4 chronic kidney disease, or unspecified chronic kidney disease Anemia in CKD (chronic kidney disease) Localized edema Metabolic acidosis Depression-Major Plan Continue supportive care No aggressive cardiac work up or intervention planned Head ct checked, negative for acute disease Psych input noted. Continue wound care and HD while in house DVT prophylaxis with heparin DVT; DC back to SNF once wound vac and SNF identified. Plan discussed with case management and Family History Interval history: Patient seen and examined, NO new complaints. awaiting wound vac, also waiting for SNF placement Hospitalist Physical - Physical exam Narrative exam: Not in cardiopulmonary distress. The patient appeared well nourished and normally developed. Vital signs as documented. Head exam is unremarkable. No scleral icterus . Neck is without jugular venous distension, thyromegaly, or carotid bruits. Lungs are clear to auscultation. Cardiac exam reveals regular rate and Rhythm. Abdominal exam reveals normal bowel sounds. Extremities are nonedematous. SALES OFFICE MANAGER: Alert and oriented 3. No focal weakness. SKIN: Stage 4 pressure ulcer at the sacrum, with good granulation tissue - Constitutional Vitals: Temp Pulse Resp BP Pulse Ox 98.5 F 63 20 152/57 100 10/30/18 13:19 10/30/18 13:17 10/30/18 13:17 10/30/18 13:17 10/30/18 13:17 General appearance: Present: no acute distress, cachectic Results - Labs CBC & Chem 7: 10/23/18 19:18 10/27/18 13:32 Labs: Laboratory Last Values WBC 5.0 K/mm3 (4.5-11.0) 10/23/18 19:18 RBC 4.10 M/mm3 (3.65-5.03) 10/23/18 19:18 Hgb 10.4 gm/dl (10.1-14.3) 10/23/18 19:18 Hct 32.9 % (30.3-42.9) 10/23/18 19:18 MCV 80 fl (79-97) 10/23/18 19:18 MCH 25 pg (28-32) L 10/23/18 19:18 MCHC 32 % (30-34) 10/23/18 19:18 RDW 20.1 % (13.2-15.2) H 10/23/18 19:18 Plt Count 276 K/mm3 (140-440) 10/23/18 19:18 Lymph % (Auto) 30.3 % (13.4-35.0) 10/23/18 19:18 [place] % (Auto) 10.5 % (0.0-7.3) H 10/23/18 19:18 Eos % (Auto) 0.8 % (0.0-4.3) 10/23/18 19:18 Baso % (Auto) 0.3 % (0.0-1.8) 10/23/18 19:18 Lymph # 1.5 K/mm3 (1.2-5.4) 10/23/18 19:18 [place] # 0.5 K/mm3 (0.0-0.8) 10/23/18 19:18 Eos # 0.0 K/mm3 (0.0-0.4) 10/23/18 19:18 Baso # 0.0 K/mm3 (0.0-0.1) 10/23/18 19:18 Seg Neutrophils % 58.1 % (40.0-70.0) 10/23/18 19:18 Seg Neutrophils # 2.9 K/mm3 (1.8-7.7) 10/23/18 19:18 Sodium 144 mmol/L (137-145) 10/27/18 13:32 Potassium 3.7 mmol/L (3.6-5.0) 10/27/18 13:32 Chloride 109.4 mmol/L (98-107) H 10/27/18 13:32 Carbon Dioxide 22 mmol/L (22-30) 10/27/18 13:32 Anion Gap 16 mmol/L 10/27/18 13:32 BUN 28 mg/dL (7-17) H 10/27/18 13:32 Creatinine 1.6 mg/dL (0.7-1.2) H 10/27/18 13:32 Estimated GFR 38 ml/min 10/27/18 13:32 BUN/Creatinine Ratio 18 % 10/27/18 13:32 Glucose 92 mg/dL (65-100) 10/27/18 13:32 Calcium 8.8 mg/dL (8.4-10.2) 10/27/18 13:32 Iron 38 ug/dL (37-170) 10/24/18 14:20 TIBC 170 mcg/dL (250-450) L 10/24/18 14:20 Ferritin 211.2 ng/mL (13.0-400.0) 10/24/18 14:20 Troponin T 0.045 ng/mL (0.00-0.029) H 10/24/18 00:36 Triglycerides 66 mg/dL (2-149) 10/23/18 19:18 Cholesterol 173 mg/dL (50-199) 10/23/18 19:18 LDL Cholesterol Direct 104 mg/dL (50-130) 10/23/18 19:18 HDL Cholesterol 65 mg/dL (40-59) H 10/23/18 19:18 Cholesterol/HDL Ratio 2.66 % 10/23/18 19:18 Active Medications - Current Medications Current Medications: Generic Name Dose Route Start Last Admin Trade Name Freq PRN Reason Stop Dose Admin Acetaminophen 650 mg 10/24/18 03:04 Tylenol PO Q4H PRN Pain MILD(1-3)/Fever >100.5/VELA Al Hydrox/Mg Hydrox/Simethicone 30 ml 10/24/18 03:04 Alum-Mag Hydrox-Simeth [phone]/5ml PO Q4H PRN Indigestion Amantadine HCl 200 mg 10/26/18 10:00 10/30/18 10:05 Symmetrel PO 200 mg DAILY JUSTIN Administration Amlodipine Besylate 10 mg 10/24/18 03:47 10/30/18 10:05 Norvasc PO 10 mg QDAY JUSTIN Administration Bisacodyl 10 mg 10/24/18 22:00 Dulcolax [place] QDAY PRN Constipation Carbidopa/Levodopa 1 each 10/26/18 18:00 10/30/18 10:05 Sinemet Er PO 1 each QID JUSTIN Administration Carvedilol 25 mg 10/24/18 04:00 10/30/18 10:05 Coreg PO 25 mg BID JUSTIN Administration Clonidine HCl 0.2 mg 10/24/18 03:47 Catapres PO Q4H PRN Blood Pressure Docusate Sodium 100 mg 10/24/18 10:00 10/30/18 10:05 Colace PO 100 mg BID JUSTIN Administration Famotidine 10 mg 10/25/18 10:00 10/30/18 10:05 Pepcid PO 10 mg BID JUSTIN Administration Furosemide 40 mg 10/25/18 10:00 10/30/18 10:05 Lasix PO 40 mg QDAY JUSTIN Administration Heparin Sodium (Porcine) 5,000 unit 10/24/18 10:00 10/30/18 10:05 Heparin SUB-Q 5,000 unit Q12HR JUSTIN Administration Sodium Chloride 1,000 mls @ 75 mls/hr 10/24/18 04:00 Nacl 0.9% 1000 Ml IV DIRECT JUTSIN Lidocaine HCl 2.5 ml 10/27/18 16:06 10/27/18 17:44 Xylocaine Topical 4% TP 2.5 ml TID PRN Administration Pain, Moderate (4-6) Morphine Sulfate 1 mg 10/24/18 03:04 Morphine IV Q4H PRN Pain, Moderate (4-6) Nitroglycerin 0.4 mg 10/24/18 03:07 Nitrostat SL .Q5MIN PRN Chest Pain Ondansetron HCl 4 mg 10/24/18 03:04 Zofran IV Q8H PRN Nausea And Vomiting Sodium Bicarbonate 650 mg 10/25/18 22:00 10/30/18 10:09 Sodium Bicarbonate PO 650 mg BID JUSTIN Administration Sodium Chloride 10 ml 10/24/18 10:00 10/30/18 10:12 Sodium Chloride Flush Syringe 10 Ml IV 10 ml BID JUSTIN Administration Sodium Chloride 10 ml 10/24/18 03:04 Sodium Chloride Flush Syringe 10 Ml IV PRN PRN LINE FLUSH Nutrition/Malnutrition Assess - Dietary Evaluation Nutrition/Malnutrition Findings: Nutrition Notes Start: 10/24/18 12:5 7 Freq: Status: Active Protocol: Document 10/30/18 10:57 RM (Rec: 10/30/18 11:09 [id number]) Nutrition Notes Initial or Follow up Reassessment Current Diagnosis CKD (stage V CKD),Decubitus( Pressure Ulcer),Hypertension Other Pertinent Diagnosis Parkinson's Current Diet Renal Labs/Tests Reviewed Pertinent Medications Lasix Height 5 ft 7 in Weight 74.3 kg [place] Body Weight (kg) 61.36 BMI 25.6 Subjective/Other Information Pt stated that her appetite is poor and that she eats 25% of her meals. Stated she drinks the Nepro and Bobby. Percent of energy/protein needs met: 52%/54% Burn Absent Trauma Absent #2 Nutrition Diagnosis Malnutrition Diagnosis Progress(for reassessment Continues documentation) #1 Nutrition Diagnosis Increased nutrient needs ( specify in comment below) As Evidenced by Signs and Symptoms pt meeting 52% of calorie and 54% of protein needs Diagnosis Progress(for reassessment Worsened documentation) Is patient on ventilator? No Is Patient Ambulatory and/or Out of Bed No REE-(Clare-St. Jeor-confined to bed) 1525.152 Kcal/Kg value to use for calculation 30 Approximate Energy Requirements Using 2229 kcal/Kg Calculation Used for Recommendations Kcal/kg Additional Notes protein (1.2-1.5g/kg): 71-88g daily fluid: 1mL/kcal or per MD Nutrition Intervention Change Diet Order: continue current Add Supplement/Snack (indicate name/kcal Nepro BID and Bobby 2 daily /protein ) Provides kCal: 1,040 Provides Protein (gm) 41 Goal #1 Meet at least 75% of calorie and protein needs via PO and ONS intakes Goal #2 Wound healing Anticipated Discharge Needs: Renal diet Follow-Up By: 11/02/18 Additional Comments Follow for PO and ONS intakes
--- NOTE | 2018-10-31 08:23 | Progress Note ---
Assessment and Plan Assessment and plan: Patient is a 78 year old female with PMHX of hypertension and Parkinson's disease who presented to the ED on account of 3 days history of epigastric pain radiating to the chest. She described it as burning in nature and rated as 7/10. Pain waxes and wanes. No known aggravating factors but pain is slightly relieved with cold water. She has associated palpitation, diaphoresis and headaches. She denies shortness of breath, cough, fever, chills, sore throat, runny nose or congestion. She admits to chronic bilateral leg swelling but not orthopnea or PND. No nausea, vomiting, abdominal pain, constipation, diarrhea, dysuria, frequency, lightheadedness, syncope or loss of consciousness. No reported history of recent stress test. Patient was seen and examined, cardiology was consulted and recommended conservative management due to patients frailty and not a candidate for aggressive cardiac evaluation and therapy. Patient was also seen by medical appliance maker and was noted to have a right upper ext AV fistula which is matured with appropriate thrill and bruit. Will follow with nephrology in 2 weeks. Wound care evaluated and recommended wound vac, considering the patients clinically condition it is important that this patient be in a nursing facility for rehab and also wound management. She is non ambulatory Family requested mental health eval due to personality change, while i have not witnessed this, the grandson is adamant about this, Mental health consulted. CT brain also done and is negative. Psych evalauated: Impression: No PPHx. MDD, recurrent, severe, without psychosis. Today the patient is calm and cooperative during the assessment. She denies SI/HI's, A/VH's, amd delusions. Recommendation/Plan: 1. Will reassess in 24 hour. 2. Recommended Remeron 7.5mg po QHS depression. Patient refuses. At this time patient prefers talk therapy. Atypical Chest pain CAD NSTEMI TYPE 2 Parkinson's disease Chronic decubitus ulcers ESRD CKD (chronic kidney disease), stage V Hypertensive chronic kidney disease with stage 1 through stage 4 chronic kidney disease, or unspecified chronic kidney disease Anemia in CKD (chronic kidney disease) Localized edema Metabolic acidosis Depression-Major Plan Continue supportive care No aggressive cardiac work up or intervention planned Head ct checked, negative for acute disease Psych input noted. Continue wound care and HD while in house DVT prophylaxis with heparin DVT; DC back to SNF once wound vac and SNF identified. Plan discussed with case management and Family Awaiting placement History Interval history: Patient seen and examined, NO new complaints. awaiting wound vac, also waiting for SNF placement. Hospitalist Physical - Physical exam Narrative exam: Not in cardiopulmonary distress. The patient appeared well nourished and normally developed. Vital signs as documented. Head exam is unremarkable. No scleral icterus . Neck is without jugular venous distension, thyromegaly, or carotid bruits. Lungs are clear to auscultation. Cardiac exam reveals regular rate and Rhythm. Abdominal exam reveals normal bowel sounds. Extremities are nonedematous. FACING END TRIMMER: Alert and oriented 3. No focal weakness. SKIN: Stage 4 pressure ulcer at the sacrum, with good granulation tissue - Constitutional Vitals: Temp Pulse Resp BP Pulse Ox 98.3 F 58 L 20 148/55 99 10/31/18 04:45 10/31/18 04:45 10/31/18 04:45 10/31/18 04:45 10/31/18 04:45 General appearance: Present: no acute distress, cachectic Results - Labs CBC & Chem 7: 11/01/18 04:31 11/01/18 04:31 Labs: Laboratory Last Values WBC 5.0 K/mm3 (4.5-11.0) 10/23/18 19:18 RBC 4.10 M/mm3 (3.65-5.03) 10/23/18 19:18 Hgb 10.4 gm/dl (10.1-14.3) 10/23/18 19:18 Hct 32.9 % (30.3-42.9) 10/23/18 19:18 MCV 80 fl (79-97) 10/23/18 19:18 MCH 25 pg (28-32) L 10/23/18 19:18 MCHC 32 % (30-34) 10/23/18 19:18 RDW 20.1 % (13.2-15.2) H 10/23/18 19:18 Plt Count 276 K/mm3 (140-440) 10/23/18 19:18 Lymph % (Auto) 30.3 % (13.4-35.0) 10/23/18 19:18 [place] % (Auto) 10.5 % (0.0-7.3) H 10/23/18 19:18 Eos % (Auto) 0.8 % (0.0-4.3) 10/23/18 19:18 Baso % (Auto) 0.3 % (0.0-1.8) 10/23/18 19:18 Lymph # 1.5 K/mm3 (1.2-5.4) 10/23/18 19:18 [place] # 0.5 K/mm3 (0.0-0.8) 10/23/18 19:18 Eos # 0.0 K/mm3 (0.0-0.4) 10/23/18 19:18 Baso # 0.0 K/mm3 (0.0-0.1) 10/23/18 19:18 Seg Neutrophils % 58.1 % (40.0-70.0) 10/23/18 19:18 Seg Neutrophils # 2.9 K/mm3 (1.8-7.7) 10/23/18 19:18 Sodium 144 mmol/L (137-145) 10/27/18 13:32 Potassium 3.7 mmol/L (3.6-5.0) 10/27/18 13:32 Chloride 109.4 mmol/L (98-107) H 10/27/18 13:32 Carbon Dioxide 22 mmol/L (22-30) 10/27/18 13:32 Anion Gap 16 mmol/L 10/27/18 13:32 BUN 28 mg/dL (7-17) H 10/27/18 13:32 Creatinine 1.6 mg/dL (0.7-1.2) H 10/27/18 13:32 Estimated GFR 38 ml/min 10/27/18 13:32 BUN/Creatinine Ratio 18 % 10/27/18 13:32 Glucose 92 mg/dL (65-100) 10/27/18 13:32 Calcium 8.8 mg/dL (8.4-10.2) 10/27/18 13:32 Iron 38 ug/dL (37-170) 10/24/18 14:20 TIBC 170 mcg/dL (250-450) L 10/24/18 14:20 Ferritin 211.2 ng/mL (13.0-400.0) 10/24/18 14:20 Troponin T 0.045 ng/mL (0.00-0.029) H 10/24/18 00:36 Triglycerides 66 mg/dL (2-149) 10/23/18 19:18 Cholesterol 173 mg/dL (50-199) 10/23/18 19:18 LDL Cholesterol Direct 104 mg/dL (50-130) 10/23/18 19:18 HDL Cholesterol 65 mg/dL (40-59) H 10/23/18 19:18 Cholesterol/HDL Ratio 2.66 % 10/23/18 19:18 Active Medications - Current Medications Current Medications: Generic Name Dose Route Start Last Admin Trade Name Freq PRN Reason Stop Dose Admin Acetaminophen 650 mg 10/24/18 03:04 Tylenol PO Q4H PRN Pain MILD(1-3)/Fever >100.5/VELA Al Hydrox/Mg Hydrox/Simethicone 30 ml 10/24/18 03:04 Alum-Mag Hydrox-Simeth 824-275-93qb/5ml PO Q4H PRN Indigestion Amantadine HCl 200 mg 10/26/18 10:00 10/30/18 10:05 Symmetrel PO 200 mg DAILY JUSTIN Administration Amlodipine Besylate 10 mg 10/24/18 03:47 10/30/18 10:05 Norvasc PO 10 mg QDAY JUSTIN Administration Bisacodyl 10 mg 10/24/18 22:00 Dulcolax [place] QDAY PRN Constipation Carbidopa/Levodopa 1 each 10/26/18 18:00 10/30/18 21:44 Sinemet Er PO 1 each QID JUSTIN Administration Carvedilol 25 mg 10/24/18 04:00 10/30/18 21:44 Coreg PO 25 mg BID JUSTIN Administration Clonidine HCl 0.2 mg 10/24/18 03:47 Catapres PO Q4H PRN Blood Pressure Docusate Sodium 100 mg 10/24/18 10:00 10/30/18 21:45 Colace PO Not Given BID JUSTIN Famotidine 10 mg 10/30/18 22:00 10/30/18 22:31 Pepcid PO 10 mg BID JUSTIN Administration Furosemide 40 mg 10/25/18 10:00 10/30/18 10:05 Lasix PO 40 mg QDAY JUSTIN Administration Heparin Sodium (Porcine) 5,000 unit 10/24/18 10:00 10/30/18 21:44 Heparin SUB-Q 5,000 unit Q12HR JUSTIN Administration Sodium Chloride 1,000 mls @ 75 mls/hr 10/24/18 04:00 Nacl 0.9% 1000 Ml IV DIRECT JUSTIN Lidocaine HCl 2.5 ml 10/27/18 16:06 10/27/18 17:44 Xylocaine Topical 4% TP 2.5 ml TID PRN Administration Pain, Moderate (4-6) Morphine Sulfate 1 mg 10/24/18 03:04 Morphine IV Q4H PRN Pain, Moderate (4-6) Nitroglycerin 0.4 mg 10/24/18 03:07 Nitrostat SL .Q5MIN PRN Chest Pain Ondansetron HCl 4 mg 10/24/18 03:04 Zofran IV Q8H PRN Nausea And Vomiting Sodium Bicarbonate 650 mg 10/25/18 22:00 10/30/18 21:44 Sodium Bicarbonate PO 650 mg BID JUSTIN Administration Sodium Chloride 10 ml 10/24/18 10:00 10/30/18 21:45 Sodium Chloride Flush Syringe 10 Ml IV 10 ml BID JUSTIN Administration Sodium Chloride 10 ml 10/24/18 03:04 Sodium Chloride Flush Syringe 10 Ml IV PRN PRN LINE FLUSH Nutrition/Malnutrition Assess - Dietary Evaluation Nutrition/Malnutrition Findings: Nutrition Notes Start: 10/24/18 12:57 Freq: Status: Active Protocol: Document 10/30/18 10:57 RM (Rec: 10/30/18 11:09 [id number]) Nutrition Notes Initial or Follow up Reassessment Current Diagnosis CKD (stage V CKD),Decubitus( Pressure Ulcer),Hypertension Other Pertinent Diagnosis Parkinson's Current Diet Renal Labs/Tests Reviewed Pertinent Medications Lasix Height 5 ft 7 in Weight 74.3 kg [place] Body Weight (kg) 61.36 BMI 25.6 Subjective/Other Information Pt stated that her appetite is poor and that she eats 25% of her meals. Stated she drinks the Nepro and Bobby. Percent of energy/protein needs met: 52%/54% Burn Absent Trauma Absent #2 Nutrition Diagnosis Malnutrition Diagnosis Progress(for reassessment Continues documentation) #1 Nutrition Diagnosis Increased nutrient needs ( specify in comment below) As Evidenced by Signs and Symptoms pt meeting 52% of calorie and 54% of protein needs Diagnosis Progress(for reassessment Worsened documentation) Is patient on ventilator? No Is Patient Ambulatory and/or Out of Bed No REE-([facility] Jeor-confined to bed) 1525.152 Kcal/Kg value to use for calculation 30 Approximate Energy Requirements Using 2229 kcal/Kg Calculation Used for Recommendations Kcal/kg Additional Notes protein (1.2-1.5g/kg): 71-88g daily fluid: 1mL/kcal or per MD Nutrition Intervention Change Diet Order: continue current Add Supplement/Snack (indicate name/kcal Nepro BID and Bobby 2 daily /protein ) Provides kCal: 1,040 Provides Protein (gm) 41 Goal #1 Meet at least 75% of calorie and protein needs via PO and ONS intakes Goal #2 Wound healing Anticipated Discharge Needs: Renal diet Follow-Up By: 11/02/18 Additional Comments Follow for PO and ONS intakes
[2018-10-31] MEDS: NORVASC PO SCH (10:44)
[2018-10-31] MEDS: COREG PO SCH ×3 (10:44→21:13)
[2018-10-31] MEDS: HEPARIN SUB-Q SCH ×2 (10:44→21:03)
[2018-10-31] MEDS: LASIX PO SCH (10:44)
[2018-10-31] MEDS: SINEMET PO SCH ×4 (10:44→21:04)
[2018-10-31] MEDS: COLACE PO SCH ×2 (10:44→21:05)
[2018-10-31] MEDS: PEPCID PO SCH ×2 (10:45→21:03)
[2018-10-31] MEDS: SODIUM BICARBONATE PO SCH ×2 (10:45→21:05)
[2018-10-31] MEDS: SYMMETREL PO SCH (10:46)
[2018-10-31] MEDS: SODIUM CHLORIDE FLUSH SYRINGE 10 ML IV SCH ×2 (10:47→21:05)
--- NOTE | 2018-10-31 14:54 | Progress Note ---
Assessment and Plan - Patient Problems (1) CKD (chronic kidney disease), stage V Current Visit: Yes Status: Chronic Plan to address problem: Advanced chronic kidney disease stage IV/5. Creatinine lower now due to her decreased muscle mass.Patient has right upper extremity AV fistula which is mature at this time with appropriate thrill and bruit noted on examination. There is no acute indications for initiating renal replacement therapy at present time. There is no acute indications for dialysis initiation at this point. Overall renal function is stable. Patient needs to follow up with Dr Banerjee, nephrology, 1-2 weeks post discharge. From a renal standpoint patient is stable for discharge. (2) Elevated troponin Current Visit: Yes Status: Acute Plan to address problem: No further chest pains. Conservative management per cardiology (3) Metabolic acidosis Current Visit: Yes Status: Acute Plan to address problem: Continue by mouth sodium bicarbonate and moderate protein diet. (4) Anemia in CKD (chronic kidney disease) Current Visit: Yes Status: Chronic Qualifiers: Chronic kidney disease stage: stage 5, not on chronic dialysis Qualified Code(s): N18.5 - Chronic kidney disease, stage 5; D63.1 - Anemia in chronic kidney disease Plan to address problem: Follow-up hemoglobin. (5) Hypertensive chronic kidney disease with stage 1 through stage 4 chronic kidney disease, or unspecified chronic kidney disease Current Visit: Yes Status: Chronic Plan to address problem: Follow blood pressure on current medications Subjective Date of service: 10/31/18 Principal diagnosis: chronic kidney disease Interval history: Patient seen lying in bed. She has no complaints. She feels much better. Says her "symptoms have been masked with medications" Objective - Exam Narrative Exam: Frail elderly lady lying in bed in no acute distress HEENT: NCAT, pink oral mucous membrane Neck: Supple, no venous distention CVS: S1S2 RRR with no murmur, rub or gallop Chest: Clear to auscultation Abdomen: Protuberant, soft, nontender, no organomegaly, bowel sounds are present Extremities: No edema, muscle wasting Neuro: Awake, alert - Vital Signs Vital signs: Vital Signs - 12hr 10/31/18 10/31/18 10/31/18 04:45 08:43 08:44 Temperature 98.3 F 97.7 F 98.3 F Pulse Rate 58 L 74 Respiratory 20 16 18 Rate Blood Pressure 148/55 164/62 Blood Pressure 134/103 [Right] O2 Sat by Pulse 99 98 Oximetry 10/31/18 10/31/18 10/31/18 09:12 10:44 11:53 Temperature 97.7 F Pulse Rate 58 L 58 L 60 Respiratory 16 16 Rate Blood Pressure 164/62 Blood Pressure 164/62 157/55 [Right] O2 Sat by Pulse 99 97 Oximetry 10/31/18 12:39 Temperature 98.3 F Pulse Rate Respiratory 20 Rate Blood Pressure 150/57 Blood Pressure [Right] O2 Sat by Pulse Oximetry - Lab 10/23/18 19:18 10/27/18 13:32 Most recent lab results Calcium 8.8 mg/dL (8.4-10.2) 10/27/18 13:32 Medications & Allergies - Medications Allergies/Adverse Reactions: Allergies aspirin Allergy (Verified 10/23/18 17:48) Swelling latex Allergy (Verified 10/23/18 17:48) rash, blisters Penicillins Allergy (Verified 10/23/18 17:48) Unknown sulfamethoxazole [From Bactrim] Allergy (Verified 10/23/18 17:48) Swelling trimethoprim [From Bactrim] Allergy (Verified 10/23/18 17:48) Swelling vancomycin Adverse Reaction (Verified 10/23/18 17:48) Itching STARTED ITCHING TO AXILLA AND NECK AFTER RECEIVING VANCOMYCIN IV. Home Medications: Home Medications Medication Instructions Recorded Confirmed Last Taken Type Carbidopa/Levodopa ER 50-200 1 each PO QID 04/30/14 10/24/18 11/04/17 History [Sinemet ER 50/200] 1 Amantadine HCl [Amantadine] 200 mg PO DAILY 08/06/17 10/24/18 11/03/17 History 200mg Ascorbic Acid [Vitamin C] 300 mg PO DAILY 08/06/17 10/24/18 11/03/17 History 300mg Folic Acid [Folvite] 25 mg PO DAILY 08/06/17 10/24/18 11/03/17 History 25mg Ubidecarenone [Co Q-10] 100 mg PO DAILY 08/06/17 10/24/18 11/03/17 History 100mg Cholecalciferol (Vitamin D3) 50,000 unit PO 1XW 10/14/17 10/24/18 11/03/17 History [Vitamin D3] 50,000 units Apixaban [Eliquis] 5 mg PO BID 14 Days #28 tablet 11/04/17 10/24/18 Unknown Rx Antacid [Alum-Mag Hydrox-Simeth 30 ml PO Q4H PRN #30 oral.liqd 10/27/18 Unknown Rx [id number]/5Ml] Bisacodyl [Dulcolax suppos] 10 mg [place] QDAY PRN #30 supp.rect 10/27/18 Unknown Rx Carvedilol [Coreg] 25 mg PO BID #60 tablet 10/27/18 Unknown Rx Docusate Sodium [Colace CAP] 100 mg PO BID #30 capsule 10/27/18 Unknown Rx Famotidine [Pepcid] 10 mg PO BID #30 tablet 10/27/18 Unknown Rx Furosemide [Lasix TAB] 40 mg PO QDAY #30 tablet 10/27/18 Unknown Rx Sodium Bicarbonate 650 mg PO BID #20 tablet 10/27/18 Unknown Rx amLODIPine [Norvasc] 10 mg PO QDAY #30 tablet 10/27/18 Unknown Rx cloNIDine [Catapres] 0.2 mg PO Q4H PRN #30 tablet 10/27/18 Unknown Rx oxyCODONE /ACETAMINOPHEN [Percocet 1 tab PO Q6HR PRN #14 tablet 10/27/18 Unknown Rx 5/325] Active Medications: Generic Name Dose Route Start Last Admin Trade Name Freq PRN Reason Stop Dose Admin Acetaminophen 650 mg 10/24/18 03:04 Tylenol PO Q4H PRN Pain MILD(1-3)/Fever >100.5/VELA Al Hydrox/Mg Hydrox/Simethicone 30 ml 10/24/18 03:04 Alum-Mag Hydrox-Simeth 078-208-57jm/5ml PO Q4H PRN Indigestion Amantadine HCl 200 mg 10/26/18 10:00 10/31/18 10:46 Symmetrel PO 200 mg DAILY JUSTIN Administration Amlodipine Besylate 10 mg 10/24/18 03:47 10/31/18 10:44 Norvasc PO 10 mg QDAY JUSTIN Administration Bisacodyl 10 mg 10/24/18 22:00 Dulcolax [place] QDAY PRN Constipation Carbidopa/Levodopa 1 each 10/26/18 18:00 10/31/18 13:55 Sinemet Er PO 1 each QID JUSTIN Administration Carvedilol 25 mg 10/24/18 04:00 10/31/18 10:44 Coreg PO 25 mg BID JUSTIN Administration Clonidine HCl 0.2 mg 10/24/18 03:47 Catapres PO Q4H PRN Blood Pressure Docusate Sodium 100 mg 10/24/18 10:00 10/31/18 10:44 Colace PO 100 mg BID JUSTIN Administration Famotidine 10 mg 10/30/18 22:00 10/31/18 10:45 Pepcid PO 10 mg BID JUSTIN Administration Furosemide 40 mg 10/25/18 10:00 10/31/18 10:44 Lasix PO 40 mg QDAY JUSTIN Administration Heparin Sodium (Porcine) 5,000 unit 10/24/18 10:00 10/31/18 10:44 Heparin SUB-Q 5,000 unit Q12HR JUSTIN Administration Sodium Chloride 1,000 mls @ 75 mls/hr 10/24/18 04:00 Nacl 0.9% 1000 Ml IV DIRECT JUSTIN Lidocaine HCl 2.5 ml 10/27/18 16:06 10/27/18 17:44 Xylocaine Topical 4% TP 2.5 ml TID PRN Administration Pain, Moderate (4-6) Morphine Sulfate 1 mg 10/24/18 03:04 Morphine IV Q4H PRN Pain, Moderate (4-6) Nitroglycerin 0.4 mg 10/24/18 03:07 Nitrostat SL .Q5MIN PRN Chest Pain Ondansetron HCl 4 mg 10/24/18 03:04 Zofran IV Q8H PRN Nausea And Vomiting Sodium Bicarbonate 650 mg 10/25/18 22:00 10/31/18 10:45 Sodium Bicarbonate PO 650 mg BID JUSTIN Administration Sodium Chloride 10 ml 10/24/18 10:00 10/31/18 10:47 Sodium Chloride Flush Syringe 10 Ml IV 10 ml BID JUSTIN Administration Sodium Chloride 10 ml 10/24/18 03:04 Sodium Chloride Flush Syringe 10 Ml IV PRN PRN LINE FLUSH
[2018-11-01] MEDS: COREG PO SCH ×3 (02:03→21:21)
[2018-11-01] MEDS: PEPCID PO SCH ×3 (02:04→21:22)
[2018-11-01 06:00] LABS: Hematocrit 28.2 % (30.3-42.9); Hemoglobin 9.1 gm/dl (10.1-14.3); Mean Corpuscular HGB Conc 32 % (30-34); Mean Corpuscular Volume 80 fl (79-97); Platelet Count 232 K/mm3 (140-440); Red Blood Count 3.54 M/mm3 (3.65-5.03)
[2018-11-01 06:26] LABS: Red Cell Distribution Width 21.1 % (13.2-15.2)
[2018-11-01 06:27] LABS: Calcium 9.1 mg/dL (8.4-10.2)
--- NOTE | 2018-11-01 10:18 | Progress Note ---
Assessment and Plan Assessment and plan: Patient is a 78 year old female with PMHX of hypertension and Parkinson's disease who presented to the ED on account of 3 days history of epigastric pain radiating to the chest. She described it as burning in nature and rated as 7/10. Pain waxes and wanes. No known aggravating factors but pain is slightly relieved with cold water. She has associated palpitation, diaphoresis and headaches. She denies shortness of breath, cough, fever, chills, sore throat, runny nose or congestion. She admits to chronic bilateral leg swelling but not orthopnea or PND. No nausea, vomiting, abdominal pain, constipation, diarrhea, dysuria, frequency, lightheadedness, syncope or loss of consciousness. No reported history of recent stress test. Patient was seen and examined, cardiology was consulted and recommended conservative management due to patients frailty and not a candidate for aggressive cardiac evaluation and therapy. Patient was also seen by sr. media manager and was noted to have a right upper ext AV fistula which is matured with appropriate thrill and bruit. Will follow with nephrology in 2 weeks. Wound care evaluated and recommended wound vac, considering the patients clinically condition it is important that this patient be in a nursing facility for rehab and also wound management. She is non ambulatory Family requested mental health eval due to personality change, while i have not witnessed this, the grandson is adamant about this, Mental health consulted. CT brain also done and is negative. Psych evalauated: Impression: No PPHx. MDD, recurrent, severe, without psychosis. Today the patient is calm and cooperative during the assessment. She denies SI/HI's, A/VH's, amd delusions. Recommendation/Plan: 1. Will reassess in 24 hour. 2. Recommended Remeron 7.5mg po QHS depression. Patient refuses. At this time patient prefers talk therapy. Atypical Chest pain CAD NSTEMI TYPE 2 Parkinson's disease Chronic decubitus ulcers ESRD CKD (chronic kidney disease), stage V Hypertensive chronic kidney disease with stage 1 through stage 4 chronic kidney disease, or unspecified chronic kidney disease Anemia in CKD (chronic kidney disease) Localized edema Metabolic acidosis Depression-Major Plan Continue supportive care counselling on medications No aggressive cardiac work up or intervention planned Head ct checked, negative for acute disease Psych input noted. Continue wound care and HD while in house DVT prophylaxis with heparin DVT; DC back to SNF once wound vac and SNF identified. Plan discussed with case management and Family Awaiting placement History Interval history: Patient seen and examined, NO new complaints. awaiting wound vac, also waiting for SNF placement. Per nursings staff, refusing meds, discussed with the patient she is taking the meds. Hospitalist Physical - Physical exam Narrative exam: Not in cardiopulmonary distress. The patient appeared well nourished and normally developed. Vital signs as documented. Head exam is unremarkable. No scleral icterus . Neck is without jugular venous distension, thyromegaly, or carotid bruits. Lungs are clear to auscultation. Cardiac exam reveals regular rate and Rhythm. Abdominal exam reveals normal bowel sounds. Extremities are nonedematous. PRINCIPAL DATA ARCHITECT: Alert and oriented 3. No focal weakness. SKIN: Stage 4 pressure ulcer at the sacrum, with good granulation tissue - Constitutional Vitals: Temp Pulse Resp BP Pulse Ox 97.9 F 61 18 165/48 98 11/01/18 07:27 11/01/18 07:27 11/01/18 07:27 11/01/18 07:27 11/01/18 07:27 General appearance: Present: no acute distress, cachectic Results - Labs CBC & Chem 7: 11/01/18 04:31 11/01/18 04:31 Labs: Laboratory Last Values WBC 4.7 K/mm3 (4.5-11.0) 11/01/18 04:31 RBC 3.54 M/mm3 (3.65-5.03) L 11/01/18 04:31 Hgb 9.1 gm/dl (10.1-14.3) L 11/01/18 04:31 Hct 28.2 % (30.3-42.9) L 11/01/18 04:31 MCV 80 fl (79-97) 11/01/18 04:31 MCH 26 pg (28-32) L 11/01/18 04:31 MCHC 32 % (30-34) 11/01/18 04:31 RDW 21.1 % (13.2-15.2) H 11/01/18 04:31 Plt Count 232 K/mm3 (140-440) 11/01/18 04:31 Lymph % (Auto) 30.3 % (13.4-35.0) 10/23/18 19:18 [place] % (Auto) 10.5 % (0.0-7.3) H 10/23/18 19:18 Eos % (Auto) 0.8 % (0.0-4.3) 10/23/18 19:18 Baso % (Auto) 0.3 % (0.0-1.8) 10/23/18 19:18 Lymph # 1.5 K/mm3 (1.2-5.4) 10/23/18 19:18 [place] # 0.5 K/mm3 (0.0-0.8) 10/23/18 19:18 Eos # 0.0 K/mm3 (0.0-0.4) 10/23/18 19:18 Baso # 0.0 K/mm3 (0.0-0.1) 10/23/18 19:18 Seg Neutrophils % 58.1 % (40.0-70.0) 10/23/18 19:18 Seg Neutrophils # 2.9 K/mm3 (1.8-7.7) 10/23/18 19:18 Sodium 145 mmol/L (137-145) 11/01/18 04:31 Potassium 3.7 mmol/L (3.6-5.0) 11/01/18 04:31 Chloride 107.4 mmol/L (98-107) H 11/01/18 04:31 Carbon Dioxide 25 mmol/L (22-30) 11/01/18 04:31 Anion Gap 16 mmol/L 11/01/18 04:31 BUN 38 mg/dL (7-17) H 11/01/18 04:31 Creatinine 1.6 mg/dL (0.7-1.2) H 11/01/18 04:31 Estimated GFR 38 ml/min 11/01/18 04:31 BUN/Creatinine Ratio 24 % 11/01/18 04:31 Glucose 120 mg/dL (65-100) H 11/01/18 04:31 Calcium 9.1 mg/dL (8.4-10.2) 11/01/18 04:31 Phosphorus 3.30 mg/dL (2.5-4.5) 11/01/18 04:31 Iron 38 ug/dL (37-170) 10/24/18 14:20 TIBC 170 mcg/dL (250-450) L 10/24/18 14:20 Ferritin 211.2 ng/mL (13.0-400.0) 10/24/18 14:20 Troponin T 0.045 ng/mL (0.00-0.029) H 10/24/18 00:36 Triglycerides 66 mg/dL (2-149) 10/23/18 19:18 Cholesterol 173 mg/dL (50-199) 10/23/18 19:18 LDL Cholesterol Direct 104 mg/dL (50-130) 10/23/18 19:18 HDL Cholesterol 65 mg/dL (40-59) H 10/23/18 19:18 Cholesterol/HDL Ratio 2.66 % 10/23/18 19:18 Active Medications - Current Medications Current Medications: Generic Name Dose Route Start Last Admin Trade Name Freq PRN Reason Stop Dose Admin Acetaminophen 650 mg 10/24/18 03:04 Tylenol PO Q4H PRN Pain MILD(1-3)/Fever >100.5/VELA Al Hydrox/Mg Hydrox/Simethicone 30 ml 10/24/18 03:04 Alum-Mag Hydrox-Simeth [id number]/5ml PO Q4H PRN Indigestion Amantadine HCl 200 mg 10/26/18 10:00 10/31/18 10:46 Symmetrel PO 200 mg DAILY JUSTIN Administration Amlodipine Besylate 10 mg 10/24/18 03:47 10/31/18 10:44 Norvasc PO 10 mg QDAY JUSTIN Administration Bisacodyl 10 mg 10/24/18 22:00 Dulcolax [place] QDAY PRN Constipation Carbidopa/Levodopa 1 each 10/26/18 18:00 10/31/18 21:04 Sinemet Er PO 1 each QID JUSTIN Administration Carvedilol 25 mg 10/24/18 04:00 11/01/18 02:03 Coreg PO Not Given BID JUSTIN Clonidine HCl 0.2 mg 10/24/18 03:47 Catapres PO Q4H PRN Blood Pressure Docusate Sodium 100 mg 10/24/18 10:00 10/31/18 21:05 Colace PO Not Given BID JUSTIN Famotidine 10 mg 10/30/18 22:00 11/01/18 02:04 Pepcid PO Not Given BID REPLACED BY [facility] Furosemide 40 mg 10/25/18 10:00 10/31/18 10:44 Lasix PO 40 mg QDAY JUSTIN Administration Heparin Sodium (Porcine) 5,000 unit 10/24/18 10:00 10/31/18 21:03 Heparin SUB-Q 5,000 unit Q12HR JUSTIN Administration Sodium Chloride 1,000 mls @ 75 mls/hr 10/24/18 04:00 Nacl 0.9% 1000 Ml IV DIRECT JUSTIN Lidocaine HCl 2.5 ml 10/27/18 16:06 10/27/18 17:44 Xylocaine Topical 4% TP 2.5 ml TID PRN Administration Pain, Moderate (4-6) Morphine Sulfate 1 mg 10/24/18 03:04 Morphine IV Q4H PRN Pain, Moderate (4-6) Nitroglycerin 0.4 mg 10/24/18 03:07 Nitrostat SL .Q5MIN PRN Chest Pain Ondansetron HCl 4 mg 10/24/18 03:04 Zofran IV Q8H PRN Nausea And Vomiting Sodium Bicarbonate 650 mg 10/25/18 22:00 10/31/18 21:05 Sodium Bicarbonate PO Not Given BID JUSTIN Sodium Chloride 10 ml 10/24/18 10:00 10/31/18 21:05 Sodium Chloride Flush Syringe 10 Ml IV 10 ml BID JUSTIN Administration Sodium Chloride 10 ml 10/24/18 03:04 Sodium Chloride Flush Syringe 10 Ml IV PRN PRN LINE FLUSH Nutrition/Malnutrition Assess - Dietary Evaluation Nutrition/Malnutrition Findings: Nutrition Notes Start: 10/24/18 12:57 Freq: Status: Active Protocol: Document 10/30/18 10:57 RM (Rec: 10/30/18 11:09 [id number]) Nutrition Notes Initial or Follow up Reassessment Current Diagnosis CKD (stage V CKD),Decubitus( Pressure Ulcer),Hypertension Other Pertinent Diagnosis Parkinson's Current Diet Renal Labs/Tests Reviewed Pertinent Medications Lasix Height 5 ft 7 in Weight 74.3 kg [place] Body Weight (kg) 61.36 BMI 25.6 Subjective/Other Information Pt stated that her appetite is poor and that she eats 25% of her meals. Stated she drinks the Nepro and Bobby. Percent of energy/protein needs met: 52%/54% Burn Absent Trauma Absent #2 Nutrition Diagnosis Malnutrition Diagnosis Progress(for reassessment Continues documentation) #1 Nutrition Diagnosis Increased nutrient needs ( specify in comment below) As Evidenced by Signs and Symptoms pt meeting 52% of calorie and 54% of protein needs Diagnosis Progress(for reassessment Worsened documentation) Is patient on ventilator? No Is Patient Ambulatory and/or Out of Bed No [facility]EE[facility]) 1525.152 Kcal/Kg value to use for calculation 30 Approximate Energy Requirements Using 2229 kcal/Kg Calculation Used for Recommendations Kcal/kg Additional Notes protein (1.2-1.5g/kg): 71-88g daily fluid: 1mL/kcal or per MD Nutrition Intervention Change Diet Order: continue current Add Supplement/Snack (indicate name/kcal Nepro BID and Bobby 2 daily /protein ) Provides kCal: 1,040 Provides Protein (gm) 41 Goal #1 Meet at least 75% of calorie and protein needs via PO and ONS intakes Goal #2 Wound healing Anticipated Discharge Needs: Renal diet Follow-Up By: 11/02/18 Additional Comments Follow for PO and ONS intakes
[2018-11-01] MEDS: SYMMETREL PO SCH (11:41)
[2018-11-01] MEDS: SODIUM BICARBONATE PO SCH ×2 (11:41→21:22)
[2018-11-01] MEDS: SINEMET PO SCH ×4 (11:41→21:22)
[2018-11-01] MEDS: COLACE PO SCH ×3 (11:42→21:38)
[2018-11-01] MEDS: SODIUM CHLORIDE FLUSH SYRINGE 10 ML IV SCH ×2 (11:42→21:22)
[2018-11-01] MEDS: NORVASC PO SCH (11:45)
[2018-11-01] MEDS: HEPARIN SUB-Q SCH ×2 (11:46→21:23)
[2018-11-01] MEDS: LASIX PO SCH (11:46)
--- NOTE | 2018-11-01 15:27 | Progress Note ---
Assessment and Plan - Patient Problems (1) CKD (chronic kidney disease), stage V Current Visit: Yes Status: Chronic Plan to address problem: Advanced chronic kidney disease stage IV/5. Creatinine lower now due to her decreased muscle mass.Patient has right upper extremity AV fistula which is mature at this time with appropriate thrill and bruit noted on examination. There is no acute indications for initiating renal replacement therapy at present time. There is no acute indications for dialysis initiation at this point. Overall renal function is stable. Patient needs to follow up with Dr Banerjee, nephrology, 1-2 weeks post discharge. From a renal standpoint patient is stable for discharge. (2) Elevated troponin Current Visit: Yes Status: Acute Plan to address problem: No further chest pains. Conservative management per cardiology (3) Metabolic acidosis Current Visit: Yes Status: Acute Plan to address problem: Continue by mouth sodium bicarbonate and moderate protein diet. (4) Anemia in CKD (chronic kidney disease) Current Visit: Yes Status: Chronic Qualifiers: Chronic kidney disease stage: stage 5, not on chronic dialysis Qualified Code(s): N18.5 - Chronic kidney disease, stage 5; D63.1 - Anemia in chronic kidney disease Plan to address problem: Follow-up hemoglobin. (5) Hypertensive chronic kidney disease with stage 1 through stage 4 chronic kidney disease, or unspecified chronic kidney disease Current Visit: Yes Status: Chronic Plan to address problem: Follow blood pressure on current medications Subjective Date of service: 11/01/18 Principal diagnosis: chronic kidney disease Interval history: Patient seen lying in bed. She has no complaints except nausea. She feels much better. Objective - Exam Narrative Exam: Frail elderly lady lying in bed in no acute distress HEENT: NCAT, pink oral mucous membrane Neck: Supple, no venous distention CVS: S1S2 RRR with no murmur, rub or gallop Chest: Clear to auscultation Abdomen: Protuberant, soft, nontender, no organomegaly, bowel sounds are present Extremities: No edema, muscle wasting Neuro: Awake, alert - Vital Signs Vital signs: Vital Signs - 12hr 11/01/18 07:27 Temperature 97.9 F Pulse Rate 61 Respiratory 18 Rate Blood Pressure 165/48 O2 Sat by Pulse 98 Oximetry - Lab 11/01/18 04:31 11/01/18 04:31 Most recent lab results Calcium 9.1 mg/dL (8.4-10.2) 11/01/18 04:31 Phosphorus 3.30 mg/dL (2.5-4.5) 11/01/18 04:31 Medications & Allergies - Medications Allergies/Adverse Reactions: Allergies aspirin Allergy (Verified 10/23/18 17:48) Swelling latex Allergy (Verified 10/23/18 17:48) rash, blisters Penicillins Allergy (Verified 10/23/18 17:48) Unknown sulfamethoxazole [From Bactrim] Allergy (Verified 10/23/18 17:48) Swelling trimethoprim [From Bactrim] Allergy (Verified 10/23/18 17:48) Swelling vancomycin Adverse Reaction (Verified 10/23/18 17:48) Itching STARTED ITCHING TO AXILLA AND NECK AFTER RECEIVING VANCOMYCIN IV. Home Medications: Home Medications Medication Instructions Recorded Confirmed Last Taken Type Carbidopa/Levodopa ER 50-200 1 each PO QID 04/30/14 10/24/18 11/04/17 History [Sinemet ER 50/200] 1 Amantadine HCl [Amantadine] 200 mg PO DAILY 08/06/17 10/24/18 11/03/17 History 200mg Ascorbic Acid [Vitamin C] 300 mg PO DAILY 08/06/17 10/24/18 11/03/17 History 300mg Folic Acid [Folvite] 25 mg PO DAILY 08/06/17 10/24/18 11/03/17 History 25mg Ubidecarenone [Co Q-10] 100 mg PO DAILY 08/06/17 10/24/18 11/03/17 History 100mg Cholecalciferol (Vitamin D3) 50,000 unit PO 1XW 10/14/17 10/24/18 11/03/17 History [Vitamin D3] 50,000 units Apixaban [Eliquis] 5 mg PO BID 14 Days #28 tablet 11/04/17 10/24/18 Unknown Rx Antacid [Alum-Mag Hydrox-Simeth 30 ml PO Q4H PRN #30 oral.liqd 10/27/18 Unknown Rx [id number]/5Ml] Bisacodyl [Dulcolax suppos] 10 mg [place] QDAY PRN #30 supp.rect 10/27/18 Unknown Rx Carvedilol [Coreg] 25 mg PO BID #60 tablet 10/27/18 Unknown Rx Docusate Sodium [Colace CAP] 100 mg PO BID #30 capsule 10/27/18 Unknown Rx Famotidine [Pepcid] 10 mg PO BID #30 tablet 10/27/18 Unknown Rx Furosemide [Lasix TAB] 40 mg PO QDAY #30 tablet 10/27/18 Unknown Rx Sodium Bicarbonate 650 mg PO BID #20 tablet 10/27/18 Unknown Rx amLODIPine [Norvasc] 10 mg PO QDAY #30 tablet 10/27/18 Unknown Rx cloNIDine [Catapres] 0.2 mg PO Q4H PRN #30 tablet 10/27/18 Unknown Rx oxyCODONE /ACETAMINOPHEN [Percocet 1 tab PO Q6HR PRN #14 tablet 10/27/18 Unknown Rx 5/325] Active Medications: Generic Name Dose Route Start Last Admin Trade Name Freq PRN Reason Stop Dose Admin Acetaminophen 650 mg 10/24/18 03:04 Tylenol PO Q4H PRN Pain MILD(1-3)/Fever >100.5/VELA Al Hydrox/Mg Hydrox/Simethicone 30 ml 10/24/18 03:04 Alum-Mag Hydrox-Simeth [id number]/5ml PO Q4H PRN Indigestion Amantadine HCl 200 mg 10/26/18 10:00 11/01/18 11:41 Symmetrel PO 200 mg DAILY JUSTIN Administration Amlodipine Besylate 10 mg 10/24/18 03:47 11/01/18 11:45 Norvasc PO 10 mg QDAY JUSTIN Administration Bisacodyl 10 mg 10/24/18 22:00 Dulcolax [place] QDAY PRN Constipation Carbidopa/Levodopa 1 each 10/26/18 18:00 11/01/18 14:13 Sinemet Er PO 1 each QID JUSTIN Administration Carvedilol 25 mg 10/24/18 04:00 11/01/18 11:46 Coreg PO 25 mg BID JUSTIN Administration Clonidine HCl 0.2 mg 10/24/18 03:47 Catapres PO Q4H PRN Blood Pressure Docusate Sodium 100 mg 10/24/18 10:00 11/01/18 11:42 Colace PO 100 mg BID JUSTIN Administration Famotidine 10 mg 10/30/18 22:00 11/01/18 11:46 Pepcid PO 10 mg BID JUSTIN Administration Furosemide 40 mg 10/25/18 10:00 11/01/18 11:46 Lasix PO 40 mg QDAY JUSTIN Administration Heparin Sodium (Porcine) 5,000 unit 10/24/18 10:00 11/01/18 11:46 Heparin SUB-Q 5,000 unit Q12HR JUSTIN Administration Sodium Chloride 1,000 mls @ 75 mls/hr 10/24/18 04:00 Nacl 0.9% 1000 Ml IV DIRECT JUSTIN Lidocaine HCl 2.5 ml 10/27/18 16:06 10/27/18 17:44 Xylocaine Topical 4% TP 2.5 ml TID PRN Administration Pain, Moderate (4-6) Morphine Sulfate 1 mg 10/24/18 03:04 Morphine IV Q4H PRN Pain, Moderate (4-6) Nitroglycerin 0.4 mg 10/24/18 03:07 Nitrostat SL .Q5MIN PRN Chest Pain Ondansetron HCl 4 mg 10/24/18 03:04 Zofran IV Q8H PRN Nausea And Vomiting Sodium Bicarbonate 650 mg 10/25/18 22:00 11/01/18 11:41 Sodium Bicarbonate PO 650 mg BID JUSTIN Administration Sodium Chloride 10 ml 10/24/18 10:00 11/01/18 11:42 Sodium Chloride Flush Syringe 10 Ml IV 10 ml BID JUSTIN Administration Sodium Chloride 10 ml 10/24/18 03:04 Sodium Chloride Flush Syringe 10 Ml IV PRN PRN LINE FLUSH
[2018-11-02] MEDS: HEPARIN SUB-Q SCH ×2 (11:08→22:32)
[2018-11-02] MEDS: SYMMETREL PO SCH (11:13)
[2018-11-02] MEDS: NORVASC PO SCH (11:14)
[2018-11-02] MEDS: PEPCID PO SCH ×2 (11:14→22:33)
[2018-11-02] MEDS: SODIUM BICARBONATE PO SCH ×2 (11:16→23:30)
[2018-11-02] MEDS: SINEMET PO SCH ×4 (11:16→22:32)
[2018-11-02] MEDS: COREG PO SCH ×2 (11:17→22:31)
[2018-11-02] MEDS: COLACE PO SCH ×2 (11:17→22:30)
[2018-11-02] MEDS: LASIX PO SCH (11:17)
--- NOTE | 2018-11-02 11:20 | Progress Note ---
Assessment and Plan - Patient Problems (1) Chronic kidney disease, stage 4 (severe) Current Visit: Yes Status: Acute Plan to address problem: Advanced chronic kidney disease stage 4/5. Creatinine lower now due to her decreased muscle mass.Patient has right upper extremity AV fistula which is mature at this time with appropriate thrill and bruit noted on examination. There is no acute indications for initiating renal replacement therapy at presen t time. Patient needs to follow up in office 3-4 weeks post discharge. From a renal standpoint patient is stable for discharge. (2) Elevated troponin Current Visit: Yes Status: Acute Plan to address problem: No further chest pains. Conservative management per cardiology (3) Metabolic acidosis Current Visit: Yes Status: Acute Plan to address problem: Continue by mouth sodium bicarbonate and moderate protein diet. (4) Anemia in CKD (chronic kidney disease) Current Visit: Yes Status: Chronic Qualifiers: Chronic kidney disease stage: stage 5, not on chronic dialysis Qualified Code(s): N18.5 - Chronic kidney disease, stage 5; D63.1 - Anemia in chronic kidney disease Plan to address problem: Follow-up hemoglobin. (5) Hypertensive chronic kidney disease with stage 1 through stage 4 chronic kidney disease, or unspecified chronic kidney disease Current Visit: Yes Status: Chronic Plan to address problem: Follow blood pressure on current medications Subjective Date of service: 11/02/18 Principal diagnosis: chronic kidney disease Interval history: pt awake, alert, in no acute distress Objective - Vital Signs Vital signs: Vital Signs - 12hr 11/02/18 11/02/18 03:12 07:20 Temperature 98.3 F 98.8 F Pulse Rate 59 L 58 L Respiratory 18 19 Rate Blood Pressure 128/47 Blood Pressure 145/44 [Right] O2 Sat by Pulse 100 98 Oximetry - General Appearance General appearance: appears stated age, chronically ill, frail EENT: ATNC, PERRL, mucous membranes moist Neck: no JVD Respiratory: Present: Clear to Ascultation Cardiology: regular, S1S2 Gastrointestinal: normoactive bowel sounds Integumentary: no rash, other (+ edema b/l ankles ) Neurologic: no focal deficit, alert and oriented x3, strength 5/5, CN 3-12 intact, other (Rt UE tremor ) Psychiatric: mood/affect appropriate, cooperative - Lab 11/01/18 04:31 04/07/19 04:31 Most recent lab results Calcium 9.1 mg/dL (8.4-10.2) 11/01/18 04:31 Phosphorus 3.30 mg/dL (2.5-4.5) 11/01/18 04:31 Medications & Allergies - Medications Allergies/Adverse Reactions: Allergies aspirin Allergy (Verified 10/23/18 17:48) Swelling latex Allergy (Verified 10/23/18 17:48) rash, blisters Penicillins Allergy (Verified 10/23/18 17:48) Unknown sulfamethoxazole [From Bactrim] Allergy (Verified 10/23/18 17:48) Swelling trimethoprim [From Bactrim] Allergy (Verified 10/23/18 17:48) Swelling vancomycin Adverse Reaction (Verified 10/23/18 17:48) Itching STARTED ITCHING TO AXILLA AND NECK AFTER RECEIVING VANCOMYCIN IV. Home Medications: Home Medications Medication Instructions Recorded Confirmed Last Taken Type Carbidopa/Levodopa ER 50-200 1 each PO QID 04/30/14 10/24/18 11/04/17 History [Sinemet ER 50/200] 1 Amantadine HCl [Amantadine] 200 mg PO DAILY 08/06/17 10/24/18 11/03/17 History 200mg Ascorbic Acid [Vitamin C] 300 mg PO DAILY 08/06/17 10/24/18 11/03/17 History 300mg Folic Acid [Folvite] 25 mg PO DAILY 08/06/17 10/24/18 11/03/17 History 25mg Ubidecarenone [Co Q-10] 100 mg PO DAILY 08/06/17 10/24/18 11/03/17 History 100mg Cholecalciferol (Vitamin D3) 50,000 unit PO 1XW 10/14/17 10/24/18 11/03/17 History [Vitamin D3] 50,000 units Apixaban [Eliquis] 5 mg PO BID 14 Days #28 tablet 11/04/17 10/24/18 Unknown Rx Antacid [Alum-Mag Hydrox-Simeth 30 ml PO Q4H PRN #30 oral.liqd 10/27/18 Unknown Rx [id number]/5Ml] Bisacodyl [Dulcolax suppos] 10 mg [place] QDAY PRN #30 supp.rect 10/27/18 Unknown Rx Carvedilol [Coreg] 25 mg PO BID #60 tablet 10/27/18 Unknown Rx Docusate Sodium [Colace CAP] 100 mg PO BID #30 capsule 10/27/18 Unknown Rx Famotidine [Pepcid] 10 mg PO BID #30 tablet 10/27/18 Unknown Rx Furosemide [Lasix TAB] 40 mg PO QDAY #30 tablet 10/27/18 Unknown Rx Sodium Bicarbonate 650 mg PO BID #20 tablet 10/27/18 Unknown Rx amLODIPine [Norvasc] 10 mg PO QDAY #30 tablet 10/27/18 Unknown Rx cloNIDine [Catapres] 0.2 mg PO Q4H PRN #30 tablet 10/27/18 Unknown Rx oxyCODONE /ACETAMINOPHEN [Percocet 1 tab PO Q6HR PRN #14 tablet 10/27/18 Unknown Rx 5/325] Active Medications: Generic Name Dose Route Start Last Admin Trade Name Freq PRN Reason Stop Dose Admin Acetaminophen 650 mg 10/24/18 03:04 Tylenol PO Q4H PRN Pain MILD(1-3)/Fever >100.5/VELA Al Hydrox/Mg Hydrox/Simethicone 30 ml 10/24/18 03:04 Alum-Mag Hydrox-Simeth [id number]/5ml PO Q4H PRN Indigestion Amantadine HCl 200 mg 10/26/18 10:00 11/01/18 11:41 Symmetrel PO 200 mg DAILY JUSTIN Administration Amlodipine Besylate 10 mg 10/24/18 03:47 11/01/18 11:45 Norvasc PO 10 mg QDAY JUSTIN Administration Bisacodyl 10 mg 10/24/18 22:00 Dulcolax [place] QDAY PRN Constipation Carbidopa/Levodopa 1 each 10/26/18 18:00 11/01/18 21:22 Sinemet Er PO 1 each QID JUSTIN Administration Carvedilol 25 mg 10/24/18 04:00 11/01/18 21:21 Coreg PO 25 mg BID JUSTIN Administration Clonidine HCl 0.2 mg 10/24/18 03:47 Catapres PO Q4H PRN Blood Pressure Docusate Sodium 100 mg 10/24/18 10:00 11/01/18 21:38 Colace PO Not Given BID JUSTIN Famotidine 10 mg 10/30/18 22:00 11/01/18 21:22 Pepcid PO 10 mg BID JUSTIN Administration Furosemide 40 mg 10/25/18 10:00 11/01/18 11:46 Lasix PO 40 mg QDAY JUSTIN Administration Heparin Sodium (Porcine) 5,000 unit 10/24/18 10:00 11/01/18 21:23 Heparin SUB-Q 5,000 unit Q12HR JUSTIN Administration Sodium Chloride 1,000 mls @ 75 mls/hr 10/24/18 04:00 Nacl 0.9% 1000 Ml IV DIRECT JUSTIN Lidocaine HCl 2.5 ml 10/27/18 16:06 10/27/18 17:44 Xylocaine Topical 4% TP 2.5 ml TID PRN Administration Pain, Moderate (4-6) Morphine Sulfate 1 mg 10/24/18 03:04 Morphine IV Q4H PRN Pain, Moderate (4-6) Nitroglycerin 0.4 mg 10/24/18 03:07 Nitrostat SL .Q5MIN PRN Chest Pain Ondansetron HCl 4 mg 10/24/18 03:04 11/01/18 16:45 Zofran IV 4 mg Q8H PRN Administration Nausea And Vomiting Sodium Bicarbonate 650 mg 10/25/18 22:00 11/01/18 21:22 Sodium Bicarbonate PO 650 mg BID JUSTIN Administration Sodium Chloride 10 ml 10/24/18 10:00 11/01/18 21:22 Sodium Chloride Flush Syringe 10 Ml IV 10 ml BID JUSTIN Administration Sodium Chloride 10 ml 10/24/18 03:04 Sodium Chloride Flush Syringe 10 Ml IV PRN PRN LINE FLUSH
--- NOTE | 2018-11-02 14:55 | Progress Note ---
Assessment and Plan Assessment and plan: Patient is a 78 year old female with PMHX of hypertension and Parkinson's disease who presented to the ED on account of 3 days history of epigastric pain radiating to the chest. She described it as burning in nature and rated as 7/10. Pain waxes and wanes. No known aggravating factors but pain is slightly relieved with cold water. She has associated palpitation, diaphoresis and headaches. She denies shortness of breath, cough, fever, chills, sore throat, runny nose or congestion. She admits to chronic bilateral leg swelling but not orthopnea or PND. No nausea, vomiting, abdominal pain, constipation, diarrhea, dysuria, frequency, lightheadedness, syncope or loss of consciousness. No reported history of recent stress test. Cardiology was consulted and recommended conservative management due to patients frailty and not a candidate for aggressive cardiac evaluation and therapy. Patient was also seen by competitive intelligence analyst and was noted to have a right upper ext AV fistula which is matured with appropriate thrill and bruit. Will follow with nephrology in 2 weeks. Wound care evaluated and recommended wound vac, considering the patients clinically condition it is important that this patient be in a nursing facility for rehab and also wound management. She is non ambulatory Family requested mental health eval due to personality change, while i have not witnessed this, the grandson is adamant about this, Mental health consulted. CT brain also done and is negative. Psych evalauated: Impression: No PPHx. MDD, recurrent, severe, without psychosis. Today the patient is calm and cooperative during the assessment. She denies SI/HI's, A/VH's, amd delusions. Recommendation/Plan: 1. Will reassess in 24 hour. 2. Recommended Remeron 7.5mg po QHS depression. Patient refuses. At this time patient prefers talk therapy. Atypical Chest pain CAD NSTEMI TYPE 2 Parkinson's disease Chronic decubitus ulcers ESRD CKD (chronic kidney disease), stage V Hypertensive chronic kidney disease with stage 1 through stage 4 chronic kidney disease, or unspecified chronic kidney disease Anemia in CKD (chronic kidney disease) Localized edema Metabolic acidosis Depression-Major Stage IV Sacral pressure Ulcer Plan Continue supportive care Outpatient mental health consult for CBT No aggressive cardiac work up or intervention planned Head CT checked, negative for acute disease Psych input noted. Continue wound care and HD while in house DVT prophylaxis with heparin DVT; DC back to SNF once wound vac and SNF identified. Plan discussed with case management and Family Awaiting placement History Interval history: Patient seen and examined, No new complaints. awaiting wound vac, also waiting for SNF placement. Hospitalist Physical - Physical exam Narrative exam: Not in cardiopulmonary distress. The patient appeared well nourished and normally developed. Vital signs as documented. Head exam is unremarkable. No scleral icterus . Neck is without jugular venous distension, thyromegaly, or carotid bruits. Lungs are clear to auscultation. Cardiac exam reveals regular rate and Rhythm. Abdominal exam reveals normal bowel sounds. Extremities are nonedematous. STAFF ANTISUBMARINE OFFICER: Alert and oriented 3. No focal weakness. SKIN: Stage 4 pressure ulcer at the sacrum, with good granulation tissue - Constitutional Vitals: Temp Pulse Resp BP Pulse Ox 98.8 F 58 L 19 145/44 98 11/02/18 07:20 11/02/18 07:20 11/02/18 07:20 11/02/18 07:20 11/02/18 07:20 General appearance: Present: no acute distress, cachectic Results - Labs CBC & Chem 7: 11/01/18 04:31 11/01/18 04:31 Labs: Laboratory Last Values WBC 4.7 K/mm3 (4.5-11.0) 11/01/18 04:31 RBC 3.54 M/mm3 (3.65-5.03) L 11/01/18 04:31 Hgb 9.1 gm/dl (10.1-14.3) L 11/01/18 04:31 Hct 28.2 % (30.3-42.9) L 11/01/18 04:31 MCV 80 fl (79-97) 11/01/18 04:31 MCH 26 pg (28-32) L 11/01/18 04:31 MCHC 32 % (30-34) 11/01/18 04:31 RDW 21.1 % (13.2-15.2) H 11/01/18 04:31 Plt Count 232 K/mm3 (140-440) 11/01/18 04:31 Lymph % (Auto) 30.3 % (13.4-35.0) 10/23/18 19:18 [place] % (Auto) 10.5 % (0.0-7.3) H 10/23/18 19:18 Eos % (Auto) 0.8 % (0.0-4.3) 10/23/18 19:18 Baso % (Auto) 0.3 % (0.0-1.8) 10/23/18 19:18 Lymph # 1.5 K/mm3 (1.2-5.4) 10/23/18 19:18 [place] # 0.5 K/mm3 (0.0-0.8) 10/23/18 19:18 Eos # 0.0 K/mm3 (0.0-0.4) 10/23/18 19:18 Baso # 0.0 K/mm3 (0.0-0.1) 10/23/18 19:18 Seg Neutrophils % 58.1 % (40.0-70.0) 10/23/18 19:18 Seg Neutrophils # 2.9 K/mm3 (1.8-7.7) 10/23/18 19:18 Sodium 145 mmol/L (137-145) 11/01/18 04:31 Potassium 3.7 mmol/L (3.6-5.0) 11/01/18 04:31 Chloride 107.4 mmol/L (98-107) H 11/01/18 04:31 Carbon Dioxide 25 mmol/L (22-30) 11/01/18 04:31 Anion Gap 16 mmol/L 11/01/18 04:31 BUN 38 mg/dL (7-17) H 11/01/18 04:31 Creatinine 1.6 mg/dL (0.7-1.2) H 11/01/18 04:31 Estimated GFR 38 ml/min 11/01/18 04:31 BUN/Creatinine Ratio 24 % 11/01/18 04:31 Glucose 120 mg/dL (65-100) H 11/01/18 04:31 Calcium 9.1 mg/dL (8.4-10.2) 11/01/18 04:31 Phosphorus 3.30 mg/dL (2.5-4.5) 11/01/18 04:31 Iron 38 ug/dL (37-170) 10/24/18 14:20 TIBC 170 mcg/dL (250-450) L 10/24/18 14:20 Ferritin 211.2 ng/mL (13.0-400.0) 10/24/18 14:20 Troponin T 0.045 ng/mL (0.00-0.029) H 10/24/18 00:36 Triglycerides 66 mg/dL (2-149) 10/23/18 19:18 Cholesterol 173 mg/dL (50-199) 10/23/18 19:18 LDL Cholesterol Direct 104 mg/dL (50-130) 10/23/18 19:18 HDL Cholesterol 65 mg/dL (40-59) H 10/23/18 19:18 Cholesterol/HDL Ratio 2.66 % 10/23/18 19:18 Active Medications - Current Medications Current Medications: Generic Name Dose Route Start Last Admin Trade Name Freq PRN Reason Stop Dose Admin Acetaminophen 650 mg 10/24/18 03:04 Tylenol PO Q4H PRN Pain MILD(1-3)/Fever >100.5/VELA Al Hydrox/Mg Hydrox/Simethicone 30 ml 10/24/18 03:04 Alum-Mag Hydrox-Simeth 110-791-68ob/5ml PO Q4H PRN Indigestion Amantadine HCl 200 mg 10/26/18 10:00 11/02/18 11:13 Symmetrel PO 200 mg DAILY JUSTIN Administration Amlodipine Besylate 10 mg 10/24/18 03:47 11/02/18 11:14 Norvasc PO 10 mg QDAY JUSTIN Administration Bisacodyl 10 mg 10/24/18 22:00 Dulcolax UT QDAY PRN Constipation Carbidopa/Levodopa 1 each 10/26/18 18:00 11/02/18 11:16 Sinemet Er PO 1 each QID JUSTIN Administration Carvedilol 25 mg 10/24/18 04:00 11/02/18 11:17 Coreg PO 25 mg BID JUSTIN Administration Clonidine HCl 0.2 mg 10/24/18 03:47 Catapres PO Q4H PRN Blood Pressure Docusate Sodium 100 mg 10/24/18 10:00 11/02/18 11:17 Colace PO 100 mg BID JUSTIN Administration Famotidine 10 mg 10/30/18 22:00 11/02/18 11:14 Pepcid PO 10 mg BID JUSTIN Administration Furosemide 40 mg 10/25/18 10:00 11/02/18 11:17 Lasix PO 40 mg QDAY JUSTIN Administration Heparin Sodium (Porcine) 5,000 unit 10/24/18 10:00 11/02/18 11:08 Heparin SUB-Q 5,000 unit Q12HR JUSTIN Administration Sodium Chloride 1,000 mls @ 75 mls/hr 10/24/18 04:00 Nacl 0.9% 1000 Ml IV DIRECT JUSTIN Lidocaine HCl 2.5 ml 10/27/18 16:06 10/27/18 17:44 Xylocaine Topical 4% TP 2.5 ml TID PRN Administration Pain, Moderate (4-6) Morphine Sulfate 1 mg 10/24/18 03:04 Morphine IV Q4H PRN Pain, Moderate (4-6) Nitroglycerin 0.4 mg 10/24/18 03:07 Nitrostat SL .Q5MIN PRN Chest Pain Ondansetron HCl 4 mg 10/24/18 03:04 11/01/18 16:45 Zofran IV 4 mg Q8H PRN Administration Nausea And Vomiting Sodium Bicarbonate 650 mg 10/25/18 22:00 11/02/18 11:16 Sodium Bicarbonate PO 650 mg BID JUSTIN Administration Sodium Chloride 10 ml 10/24/18 10:00 11/01/18 21:22 Sodium Chloride Flush Syringe 10 Ml IV 10 ml BID JUSTIN Administration Sodium Chloride 10 ml 10/24/18 03:04 Sodium Chloride Flush Syringe 10 Ml IV PRN PRN LINE FLUSH Nutrition/Malnutrition Assess - Dietary Evaluation Nutrition/Malnutrition Findings: Nutrition Notes Start: 10/24/18 12:57 Freq: Status: Active Protocol: Document 10/30/18 10:57 RM (Rec: 10/30/18 11:09 [email or web address]) Nutrition Notes Initial or Follow up Reassessment Current Diagnosis CKD (stage V CKD),Decubitus( Pressure Ulcer),Hypertension Other Pertinent Diagnosis Parkinson's Current Diet Renal Labs/Tests Reviewed Pertinent Medications Lasix Height 5 ft 7 in Weight 74.3 kg [place] Body Weight (kg) 61.36 BMI 25.6 Subjective/Other Information Pt stated that her appetite is poor and that she eats 25% of her meals. Stated she drinks the Nepro and Bobby. Percent of energy/protein needs met: 52%/54% Burn Absent Trauma Absent #2 Nutrition Diagnosis Malnutrition Diagnosis Progress(for reassessment Continues documentation) #1 Nutrition Diagnosis Increased nutrient needs ( specify in comment below) As Evidenced by Signs and Symptoms pt meeting 52% of calorie and 54% of protein needs Diagnosis Progress(for reassessment Worsened documentation) Is patient on ventilator? No Is Patient Ambulatory and/or Out of Bed No REE-([facility]-confined to bed) 1525.152 Kcal/Kg value to use for calculation 30 Approximate Energy Requirements Using 2229 kcal/Kg Calculation Used for Recommendations Kcal/kg Additional Notes protein (1.2-1.5g/kg): 71-88g daily fluid: 1mL/kcal or per MD Nutrition Intervention Change Diet Order: continue current Add Supplement/Snack (indicate name/kcal Nepro BID and Bobby 2 daily /protein ) Provides kCal: 1,040 Provides Protein (gm) 41 Goal #1 Meet at least 75% of calorie and protein needs via PO and ONS intakes Goal #2 Wound healing Anticipated Discharge Needs: Renal diet Follow-Up By: 11/02/18 Additional Comments Follow for PO and ONS intakes - Attestation Statement I have reviewed and agreed w/ Malnutrition eval & tx plan: Yes
[2018-11-02] MEDS: SODIUM CHLORIDE FLUSH SYRINGE 10 ML IV SCH ×2 (17:52→22:34)
[2018-11-03] MEDS: SINEMET PO SCH ×4 (10:46→21:44)
[2018-11-03] MEDS: SYMMETREL PO SCH (10:48)
[2018-11-03] MEDS: NORVASC PO SCH (10:49)
[2018-11-03] MEDS: SODIUM BICARBONATE PO SCH (10:49)
[2018-11-03] MEDS: COLACE PO SCH ×2 (10:50→21:44)
[2018-11-03] MEDS: COREG PO SCH ×2 (10:51→21:44)
[2018-11-03] MEDS: LASIX PO SCH (10:52)
[2018-11-03] MEDS: PEPCID PO SCH ×2 (10:53→21:44)
[2018-11-03] MEDS: HEPARIN SUB-Q SCH ×2 (10:54→21:43)
[2018-11-03] MEDS: SODIUM CHLORIDE FLUSH SYRINGE 10 ML IV SCH ×2 (10:55→21:45)
--- NOTE | 2018-11-03 10:56 | Progress Note ---
Assessment and Plan - Patient Problems (1) Chronic kidney disease, stage 4 (severe) Current Visit: Yes Status: Acute Plan to address problem: Advanced chronic kidney disease stage 4. Creatinine lower now due to her decreased muscle mass. Patient has right upper extremity AV fistula which is mature at this time with appropriate thrill and bruit noted on examination. There is no acute indications for initiating renal replacement therapy at present time. Patient needs to follow up in office 3-4 weeks post discharge. From a renal standpoint patient is stable for discharge. (2) Elevated troponin Current Visit: Yes Status: Acute Plan to address problem: No further chest pains. Conservative management per cardiology (3) Metabolic acidosis Current Visit: Yes Status: Acute Plan to address problem: Cont moderate protein diet.serum bicarb normalized. will d/c po Na bicarb for now (4) Anemia in CKD (chronic kidney disease) Current Visit: Yes Status: Chronic Qualifiers: Chronic kidney disease stage: stage 5, not on chronic dialysis Qualified Code(s): N18.5 - Chronic kidney disease, stage 5; D63.1 - Anemia in chronic kidney disease Plan to address problem: Follow-up hemoglobin. (5) Hypertensive chronic kidney disease with stage 1 through stage 4 chronic kidney disease, or unspecified chronic kidney disease Current Visit: Yes Status: Chronic Plan to address problem: Follow blood pressure on current medications Subjective Date of service: 11/03/18 Principal diagnosis: chronic kidney disease Interval history: pt awake, alert, in no acute distress Objective - Vital Signs Vital signs: Vital Signs - 12hr 11/03/18 11/03/18 11/03/18 05:45 08:54 09:49 Temperature 99.0 F 98.6 F 98.6 F Pulse Rate 61 60 Respiratory 28 H 18 Rate Blood Pressure 167/53 146/43 Blood Pressure 146/43 [Right] O2 Sat by Pulse 100 Oximetry - General Appearance General appearance: well-developed, appears stated age, frail EENT: ATNC, PERRL, mucous membranes moist Neck: no JVD Respiratory: Present: Clear to Ascultation Cardiology: regular, S1S2 Gastrointestinal: normoactive bowel sounds Integumentary: no rash, other (+ edema b/l ankles ) Neurologic: no focal deficit, alert and oriented x3, strength 5/5, CN 3-12 intact Psychiatric: mood/affect appropriate, cooperative - Lab 11/01/18 04:31 11/01/18 04:31 Most recent lab results Calcium 9.1 mg/dL (8.4-10.2) 11/01/18 04:31 Phosphorus 3.30 mg/dL (2.5-4.5) 11/01/18 04:31 Medications & Allergies - Medications Allergies/Adverse Reactions: Allergies aspirin Allergy (Verified 10/23/18 17:48) Swelling latex Allergy (Verified 10/23/18 17:48) rash, blisters Penicillins Allergy (Verified 10/23/18 17:48) Unknown sulfamethoxazole [From Bactrim] Allergy (Verified 10/23/18 17:48) Swelling trimethoprim [From Bactrim] Allergy (Verified 10/23/18 17:48) Swelling vancomycin Adverse Reaction (Verified 10/23/18 17:48) Itching STARTED ITCHING TO AXILLA AND NECK AFTER RECEIVING VANCOMYCIN IV. Home Medications: Home Medications Medication Instructions Recorded Confirmed Last Taken Type Carbidopa/Levodopa ER 50-200 1 each PO QID 04/30/14 10/24/18 11/04/17 History [Sinemet ER 50/200] 1 Amantadine HCl [Amantadine] 200 mg PO DAILY 08/06/17 10/24/18 11/03/17 History 200mg Ascorbic Acid [Vitamin C] 300 mg PO DAILY 08/06/17 10/24/18 11/03/17 History 300mg Folic Acid [Folvite] 25 mg PO DAILY 08/06/17 10/24/18 11/03/17 History 25mg Ubidecarenone [Co Q-10] 100 mg PO DAILY 08/06/17 10/24/18 11/03/17 History 100mg Cholecalciferol (Vitamin D3) 50,000 unit PO 1XW 10/14/17 10/24/18 11/03/17 History [Vitamin D3] 50,000 units Apixaban [Eliquis] 5 mg PO BID 14 Days #28 tablet 11/04/17 10/24/18 Unknown Rx Antacid [Alum-Mag Hydrox-Simeth 30 ml PO Q4H PRN #30 oral.liqd 10/27/18 Unknown Rx [id number]/5Ml] Bisacodyl [Dulcolax suppos] 10 mg AR QDAY PRN #30 supp.rect 10/27/18 Unknown Rx Carvedilol [Coreg] 25 mg PO BID #60 tablet 10/27/18 Unknown Rx Docusate Sodium [Colace CAP] 100 mg PO BID #30 capsule 10/27/18 Unknown Rx Famotidine [Pepcid] 10 mg PO BID #30 tablet 10/27/18 Unknown Rx Furosemide [Lasix TAB] 40 mg PO QDAY #30 tablet 10/27/18 Unknown Rx Sodium Bicarbonate 650 mg PO BID #20 tablet 10/27/18 Unknown Rx amLODIPine [Norvasc] 10 mg PO QDAY #30 tablet 10/27/18 Unknown Rx cloNIDine [Catapres] 0.2 mg PO Q4H PRN #30 tablet 10/27/18 Unknown Rx oxyCODONE /ACETAMINOPHEN [Percocet 1 tab PO Q6HR PRN #14 tablet 10/27/18 Unknown Rx 5/325] Active Medications: Generic Name Dose Route Start Last Admin Trade Name Freq PRN Reason Stop Dose Admin Acetaminophen 650 mg 10/24/18 03:04 Tylenol PO Q4H PRN Pain MILD(1-3)/Fever >100.5/VELA Al Hydrox/Mg Hydrox/Simethicone 30 ml 10/24/18 03:04 Alum-Mag Hydrox-Simeth 568-636-45jw/5ml PO Q4H PRN Indigestion Amantadine HCl 200 mg 10/26/18 10:00 11/02/18 11:13 Symmetrel PO 200 mg DAILY JUSTIN Administration Amlodipine Besylate 10 mg 10/24/18 03:47 11/02/18 11:14 Norvasc PO 10 mg QDAY JUSTIN Administration Bisacodyl 10 mg 10/24/18 22:00 Dulcolax AR QDAY PRN Constipation Carbidopa/Levodopa 1 each 10/26/18 18:00 11/03/18 10:46 Sinemet Er PO 1 each QID JUSTIN Administration Carvedilol 25 mg 10/24/18 04:00 11/02/18 22:31 Coreg PO 25 mg BID JUSTIN Administration Clonidine HCl 0.2 mg 10/24/18 03:47 Catapres PO Q4H PRN Blood Pressure Docusate Sodium 100 mg 10/24/18 10:00 11/02/18 22:30 Colace PO 100 mg BID JUSTIN Administration Famotidine 10 mg 10/30/18 22:00 04/08/19 22:33 Pepcid PO 10 mg BID JUSTIN Administration Furosemide 40 mg 10/25/18 10:00 11/02/18 11:17 Lasix PO 40 mg QDAY JUSTIN Administration Heparin Sodium (Porcine) 5,000 unit 10/24/18 10:00 11/02/18 22:32 Heparin SUB-Q 5,000 unit Q12HR JUSTIN Administration Sodium Chloride 1,000 mls @ 75 mls/hr 10/24/18 04:00 Nacl 0.9% 1000 Ml IV DIRECT JUSTIN Lidocaine HCl 2.5 ml 10/27/18 16:06 10/27/18 17:44 Xylocaine Topical 4% TP 2.5 ml TID PRN Administration Pain, Moderate (4-6) Morphine Sulfate 1 mg 10/24/18 03:04 Morphine IV Q4H PRN Pain, Moderate (4-6) Nitroglycerin 0.4 mg 10/24/18 03:07 Nitrostat SL .Q5MIN PRN Chest Pain Ondansetron HCl 4 mg 10/24/18 03:04 11/01/18 16:45 Zofran IV 4 mg Q8H PRN Administration Nausea And Vomiting Sodium Bicarbonate 650 mg 10/25/18 22:00 11/02/18 23:30 Sodium Bicarbonate PO 650 mg BID JUSTIN Administration Sodium Chloride 10 ml 10/24/18 10:00 11/02/18 22:34 Sodium Chloride Flush Syringe 10 Ml IV 10 ml BID JUSTIN Administration Sodium Chloride 10 ml 10/24/18 03:04 Sodium Chloride Flush Syringe 10 Ml IV PRN PRN LINE FLUSH
--- NOTE | 2018-11-03 13:46 | Progress Note ---
Assessment and Plan Assessment and plan: Patient is a 78 year old woman with a history of hypertension, Parkinson's disease and functional quadriplegia who presented to the ED with epigastric pain radiating to the chest. Cardiology was consulted and recommended conservative management due to patients frailty and not a candidate for aggressive cardiac evaluation and therapy.Patient was also seen by net maker and was noted to have a right upper ext AV fistula which is matured with appropriate thrill and bruit. They Will follow up in 2 weeks. Wound care evaluated and recommended wound vac, considering the patients clinically cond ition it is important that this patient be in a nursing facility for rehab and also wound management. She is non ambulatory Stage IV Sacral pressure Ulcer: wound care, wound vac Atypical Chest pain, evaluated by Cardiology CAD by history NSTEMI TYPE 2 by history Parkinson's disease by history Hypertensive chronic kidney disease with stage 1 through stage 4 chronic kidney disease, or unspecified chronic kidney disease Anemia in CKD 3 (chronic kidney disease), vasomotor nephropathy, poa, stable Metabolic acidosis Depression-Major without SI Awaiting placement and outpatient wound vac delivery History Interval history: Patient was seen and examined. Follow-up on current diagnosis sacral decubitus. Overnight uneventful. Patient denies any chest pain, shortness breath, nausea/vomiting or severe headaches. Imaging, nursing note, chart, labs and old chart reviewed. Discussed with patient. Hospitalist Physical - Physical exam Narrative exam: Gen: WDWN, NAD, Awake, Alert, Orientated HEENT: NCAT, EOMI, PERRL, OP Clear Neck: supple, no adenopathy, no thyromegaly, no JVD CVS/Heart: RRR, normal S1S2, pulses present bilaterally Chest/Lungs: CTA B, Symmetrical chest expansion, good air entry bilaterally GI/Abdomen: soft, NTND, good bowel sounds, no guarding or rebound /Bladder: no suprapubic tenderness, no CVA or paraspinal tenderness Extermity/Skin: no c/c/e, stage 4 sacral decub ulcer with wound vac in place MSK: FROM x 4 Neuro: CN 2-12 grossly intact, no new focal deficits Psych: calm - Constitutional Vitals: Temp Pulse Resp BP Pulse Ox 98.6 F 60 18 146/43 100 11/03/18 09:49 11/03/18 10:51 11/03/18 08:54 11/03/18 10:51 11/03/18 08:54 General appearance: Present: no acute distress, cachectic Results - Labs CBC & Chem 7: 11/01/18 04:31 11/01/18 04:31 Labs: Laboratory Last Values WBC 4.7 K/mm3 (4.5-11.0) 11/01/18 04:31 RBC 3.54 M/mm3 (3.65-5.03) L 11/01/18 04:31 Hgb 9.1 gm/dl (10.1-14.3) L 11/01/18 04:31 Hct 28.2 % (30.3-42.9) L 11/01/18 04:31 MCV 80 fl (79-97) 11/01/18 04:31 MCH 26 pg (28-32) L 11/01/18 04:31 MCHC 32 % (30-34) 11/01/18 04:31 RDW 21.1 % (13.2-15.2) H 11/01/18 04:31 Plt Count 232 K/mm3 (140-440) 11/01/18 04:31 Lymph % (Auto) 30.3 % (13.4-35.0) 10/23/18 19:18 [place] % (Auto) 10.5 % (0.0-7.3) H 10/23/18 19:18 Eos % (Auto) 0.8 % (0.0-4.3) 10/23/18 19:18 Baso % (Auto) 0.3 % (0.0-1.8) 10/23/18 19:18 Lymph # 1.5 K/mm3 (1.2-5.4) 10/23/18 19:18 [place] # 0.5 K/mm3 (0.0-0.8) 10/23/18 19:18 Eos # 0.0 K/mm3 (0.0-0.4) 10/23/18 19:18 Baso # 0.0 K/mm3 (0.0-0.1) 10/23/18 19:18 Seg Neutrophils % 58.1 % (40.0-70.0) 10/23/18 19:18 Seg Neutrophils # 2.9 K/mm3 (1.8-7.7) 10/23/18 19:18 Sodium 145 mmol/L (137-145) 11/01/18 04:31 Potassium 3.7 mmol/L (3.6-5.0) 11/01/18 04:31 Chloride 107.4 mmol/L (98-107) H 11/01/18 04:31 Carbon Dioxide 25 mmol/L (22-30) 11/01/18 04:31 Anion Gap 16 mmol/L 11/01/18 04:31 BUN 38 mg/dL (7-17) H 11/01/18 04:31 Creatinine 1.6 mg/dL (0.7-1.2) H 11/01/18 04:31 Estimated GFR 38 ml/min 11/01/18 04:31 BUN/Creatinine Ratio 24 % 11/01/18 04:31 Glucose 120 mg/dL (65-100) H 11/01/18 04:31 Calcium 9.1 mg/dL (8.4-10.2) 11/01/18 04:31 Phosphorus 3.30 mg/dL (2.5-4.5) 11/01/18 04:31 Iron 38 ug/dL (37-170) 10/24/18 14:20 TIBC 170 mcg/dL (250-450) L 10/24/18 14:20 Ferritin 211.2 ng/mL (13.0-400.0) 10/24/18 14:20 Troponin T 0.045 ng/mL (0.00-0.029) H 10/24/18 00:36 Triglycerides 66 mg/dL (2-149) 10/23/18 19:18 Cholesterol 173 mg/dL (50-199) 10/23/18 19:18 LDL Cholesterol Direct 104 mg/dL (50-130) 10/23/18 19:18 HDL Cholesterol 65 mg/dL (40-59) H 10/23/18 19:18 Cholesterol/HDL Ratio 2.66 % 10/23/18 19:18 Active Medications - Current Medications Current Medications: Generic Name Dose Route Start Last Admin Trade Name Freq PRN Reason Stop Dose Admin Acetaminophen 650 mg 10/24/18 03:04 Tylenol PO Q4H PRN Pain MILD(1-3)/Fever >100.5/VELA Al Hydrox/Mg Hydrox/Simethicone 30 ml 10/24/18 03:04 Alum-Mag Hydrox-Simeth 768-115-70cy/5ml PO Q4H PRN Indigestion Amantadine HCl 200 mg 10/26/18 10:00 11/03/18 10:48 Symmetrel PO 200 mg DAILY JUSTIN Administration Amlodipine Besylate 10 mg 10/24/18 03:47 11/03/18 10:49 Norvasc PO 10 mg QDAY JUSTIN Administration Bisacodyl 10 mg 10/24/18 22:00 Dulcolax ND QDAY PRN Constipation Carbidopa/Levodopa 1 each 10/26/18 18:00 11/03/18 13:14 Sinemet Er PO 1 each QID JUSTIN Administration Carvedilol 25 mg 10/24/18 04:00 11/03/18 10:51 Coreg PO 25 mg BID JUSTIN Administration Clonidine HCl 0.2 mg 10/24/18 03:47 Catapres PO Q4H PRN Blood Pressure Docusate Sodium 100 mg 10/24/18 10:00 11/03/18 10:50 Colace PO 100 mg BID JUSTIN Administration Famotidine 10 mg 10/30/18 22:00 11/03/18 10:53 Pepcid PO 10 mg BID JUSTIN Administration Furosemide 40 mg 10/25/18 10:00 11/03/18 10:52 Lasix PO 40 mg QDAY JUSTIN Administration Heparin Sodium (Porcine) 5,000 unit 10/24/18 10:00 11/03/18 10:54 Heparin SUB-Q 5,000 unit Q12HR JUSTIN Administration Lidocaine HCl 2.5 ml 10/27/18 16:06 10/27/18 17:44 Xylocaine Topical 4% TP 2.5 ml TID PRN Administration Pain, Moderate (4-6) Morphine Sulfate 1 mg 10/24/18 03:04 Morphine IV Q4H PRN Pain, Moderate (4-6) Nitroglycerin 0.4 mg 10/24/18 03:07 Nitrostat SL .Q5MIN PRN Chest Pain Ondansetron HCl 4 mg 10/24/18 03:04 11/01/18 16:45 Zofran IV 4 mg Q8H PRN Administration Nausea And Vomiting Sodium Chloride 10 ml 10/24/18 10:00 11/03/18 10:55 Sodium Chloride Flush Syringe 10 Ml IV 10 ml BID JUSTIN Administration Sodium Chloride 10 ml 10/24/18 03:04 Sodium Chloride Flush Syringe 10 Ml IV PRN PRN LINE FLUSH Nutrition/Malnutrition Assess - Dietary Evaluation Nutrition/Malnutrition Findings: Nutrition Notes Start: 10/24/18 12:57 Freq: Status: Active Protocol: Document 11/02/18 16:23 JOSEPH (Rec: 11/02/18 16:27 JOSEPH [email or web address] [email or web address]) Nutrition Notes Initial or Follow up Reassessment Current Diagnosis CKD (stage V CKD),Decubitus( Pressure Ulcer),Hypertension Other Pertinent Diagnosis Parkinson's Current Diet Renal + Nepro and Bobby BID Labs/Tests No new available Pertinent Medications Reviewed Height 5 ft 7 in Weight 74.3 kg [place] Body Weight (kg) 61.36 BMI 25.6 Subjective/Other Information Pt consumed 75% of meals yesterday. Says she eats 25- 50% of meals on most days and drinks ONS. D/C summary written yesterday. Burn Absent Trauma Absent #2 Nutrition Diagnosis Malnutrition Diagnosis Progress(for reassessment Continues documentation) #1 Nutrition Diagnosis Increased nutrient needs ( specify in comment below) Comments: protein Diagnosis Progress(for reassessment Continues documentation) Is patient on ventilator? No Is Patient Ambulatory and/or Out of Bed No REE-([facility]-confined to bed) 1525.152 Kcal/Kg value to use for calculation 30 Approximate Energy Requirements Using 2229 kcal/Kg Calculation Used for Recommendations Kcal/kg Additional Notes protein (1.25-1.5g/kg): 93- 111g daily fluid: 1mL/kcal or per MD Nutrition Intervention Change Diet Order: continue current Add Supplement/Snack (indicate name/kcal Nepro BID and Bobby 2 daily /protein ) Provides kCal: 1,040 Provides Protein (gm) 41 Goal #1 Meet at least 75% of calorie and protein needs via PO and ONS intakes Goal #2 Wound healing Follow-Up By: 11/09/18 Additional Comments F/U: intakes (meals/ONS), wt
[2018-11-03 18:10] LABS: Creatinine 24 Hour,Urine 0.7 (0.8-2.8); Creatinine,Urine 66.1 mg/dL (0.1-20.0)
[2018-11-04 06:08] LABS: Calcium 8.9 mg/dL (8.4-10.2)
[2018-11-04] MEDS: PEPCID PO SCH (10:13)
[2018-11-04] MEDS: COREG PO SCH (10:13)
[2018-11-04] MEDS: COLACE PO SCH (10:14)
[2018-11-04] MEDS: LASIX PO SCH (10:14)
[2018-11-04] MEDS: SINEMET PO SCH ×2 (10:14→14:51)
[2018-11-04] MEDS: SODIUM CHLORIDE FLUSH SYRINGE 10 ML IV SCH (10:14)
[2018-11-04] MEDS: SYMMETREL PO SCH (10:14)
[2018-11-04] MEDS: NORVASC PO SCH (10:14)
[2018-11-04] MEDS: HEPARIN SUB-Q SCH (10:15)
--- NOTE | 2018-11-04 10:54 | Progress Note ---
Assessment and Plan - Patient Problems (1) Chronic kidney disease, stage 4 (severe) Current Visit: Yes Status: Acute Plan to address problem: Advanced chronic kidney disease stage 4. Creatinine lower now due to her decreased muscle mass. 24hr urine CrCl was measured to be 30mls/min. Patient has right upper extremity AV fistula which is mature at this time with appropriate thrill and bruit noted on examination. There is no acute indications for i nitiating renal replacement therapy at present time. From a renal standpoint patient is stable for discharge. (2) Elevated troponin Current Visit: Yes Status: Acute Plan to address problem: No further chest pains. Conservative management per cardiology (3) Metabolic acidosis Current Visit: Yes Status: Acute Plan to address problem: Cont moderate protein diet.serum bicarb normalized. will d/c po Na bicarb for now (4) Anemia in CKD (chronic kidney disease) Current Visit: Yes Status: Chronic Qualifiers: Chronic kidney disease stage: stage 5, not on chronic dialysis Qualified Code(s): N18.5 - Chronic kidney disease, stage 5; D63.1 - Anemia in chronic kidney disease Plan to address problem: Follow-up hemoglobin. (5) Hypertensive chronic kidney disease with stage 1 through stage 4 chronic kidney disease, or unspecified chronic kidney disease Current Visit: Yes Status: Chronic Plan to address problem: Follow blood pressure on current medications Subjective Date of service: 11/04/18 Principal diagnosis: chronic kidney disease Interval history: pt awake, alert, in no acute distress Objective - Vital Signs Vital signs: Vital Signs - 12hr 11/04/18 11/04/18 11/04/18 01:51 07:39 10:13 Temperature 98.4 F 98.5 F Pulse Rate 57 L 57 L 57 L Respiratory 22 18 Rate Blood Pressure 135/53 142/50 142/50 O2 Sat by Pulse 99 97 Oximetry - General Appearance General appearance: well-developed, appears stated age, frail EENT: ATNC, PERRL, mucous membranes moist Neck: no JVD Respiratory: Present: Clear to Ascultation Cardiology: regular, S1S2 Gastrointestinal: normoactive bowel sounds Integumentary: no rash, other (+ b/l ankle edema ) Neurologic: no focal deficit, alert and oriented x3, strength 5/5, CN 3-12 intact Psychiatric: mood/affect appropriate, cooperative - Lab 11/01/18 04:31 11/04/18 04:43 Most recent lab results Calcium 8.9 mg/dL (8.4-10.2) 11/04/18 04:43 Phosphorus 3.30 mg/dL (2.5-4.5) 11/01/18 04:31 Urine Creatinine 66.1 mg/dL (0.1-20.0) H 11/03/18 18:00 Medications & Allergies - Medications Allergies/Adverse Reactions: Allergies aspirin Allergy (Verified 10/23/18 17:48) Swelling latex Allergy (Verified 10/23/18 17:48) rash, blisters Penicillins Allergy (Verified 10/23/18 17:48) Unknown sulfamethoxazole [From Bactrim] Allergy (Verified 10/23/18 17:48) Swelling trimethoprim [From Bactrim] Allergy (Verified 10/23/18 17:48) Swelling vancomycin Adverse Reaction (Verified 10/23/18 17:48) Itching STARTED ITCHING TO AXILLA AND NECK AFTER RECEIVING VANCOMYCIN IV. Home Medications: Home Medications Medication Instructions Recorded Confirmed Last Taken Type Carbidopa/Levodopa ER 50-200 1 each PO QID 04/30/14 10/24/18 11/04/17 History [Sinemet ER 50/200] 1 Amantadine HCl [Amantadine] 200 mg PO DAILY 08/06/17 10/24/18 11/03/17 History 200mg Ascorbic Acid [Vitamin C] 300 mg PO DAILY 08/06/17 10/24/18 11/03/17 History 300mg Folic Acid [Folvite] 25 mg PO DAILY 08/06/17 10/24/18 11/03/17 History 25mg Ubidecarenone [Co Q-10] 100 mg PO DAILY 08/06/17 10/24/18 11/03/17 History 100mg Cholecalciferol (Vitamin D3) 50,000 unit PO 1XW 10/14/17 10/24/18 11/03/17 History [Vitamin D3] 50,000 units Apixaban [Eliquis] 5 mg PO BID 14 Days #28 tablet 11/04/17 10/24/18 Unknown Rx Antacid [Alum-Mag Hydrox-Simeth 30 ml PO Q4H PRN #30 oral.liqd 10/27/18 Unknown Rx [id number]/5Ml] Bisacodyl [Dulcolax suppos] 10 mg [place] QDAY PRN #30 supp.rect 10/27/18 Unknown Rx Carvedilol [Coreg] 25 mg PO BID #60 tablet 10/27/18 Unknown Rx Docusate Sodium [Colace CAP] 100 mg PO BID #30 capsule 10/27/18 Unknown Rx Famotidine [Pepcid] 10 mg PO BID #30 tablet 10/27/18 Unknown Rx Furosemide [Lasix TAB] 40 mg PO QDAY #30 tablet 10/27/18 Unknown Rx Sodium Bicarbonate 650 mg PO BID #20 tablet 10/27/18 Unknown Rx amLODIPine [Norvasc] 10 mg PO QDAY #30 tablet 10/27/18 Unknown Rx cloNIDine [Catapres] 0.2 mg PO Q4H PRN #30 tablet 10/27/18 Unknown Rx oxyCODONE /ACETAMINOPHEN [Percocet 1 tab PO Q6HR PRN #14 tablet 10/27/18 Unknown Rx 5/325] Active Medications: Generic Name Dose Route Start Last Admin Trade Name Freq PRN Reason Stop Dose Admin Acetaminophen 650 mg 10/24/18 03:04 Tylenol PO Q4H PRN Pain MILD(1-3)/Fever >100.5/VELA Al Hydrox/Mg Hydrox/Simethicone 30 ml 10/24/18 03:04 Alum-Mag Hydrox-Simeth [id number]/5ml PO Q4H PRN Indigestion Amantadine HCl 200 mg 10/26/18 10:00 11/04/18 10:14 Symmetrel PO 200 mg DAILY JUSTIN Administration Amlodipine Besylate 10 mg 10/24/18 03:47 11/04/18 10:14 Norvasc PO 10 mg QDAY JUSTIN Administration Bisacodyl 10 mg 10/24/18 22:00 Dulcolax [place] QDAY PRN Constipation Carbidopa/Levodopa 1 each 10/26/18 18:00 11/04/18 10:14 Sinemet Er PO 1 each QID JUSTIN Administration Carvedilol 25 mg 10/24/18 04:00 11/04/18 10:13 Coreg PO 25 mg BID JUSTIN Administration Clonidine HCl 0.2 mg 10/24/18 03:47 Catapres PO Q4H PRN Blood Pressure Docusate Sodium 100 mg 10/24/18 10:00 11/04/18 10:14 Colace PO 100 mg BID JUSTIN Administration Famotidine 10 mg 10/30/18 22:00 11/04/18 10:13 Pepcid PO 10 mg BID JUSTIN Administration Furosemide 40 mg 10/25/18 10:00 11/04/18 10:14 Lasix PO 40 mg QDAY JUSTIN Administration Heparin Sodium (Porcine) 5,000 unit 10/24/18 10:00 11/04/18 10:15 Heparin SUB-Q 5,000 unit Q12HR JUSTIN Administration Lidocaine HCl 2.5 ml 10/27/18 16:06 10/27/18 17:44 Xylocaine Topical 4% TP 2.5 ml TID PRN Administration Pain, Moderate (4-6) Morphine Sulfate 1 mg 10/24/18 03:04 Morphine IV Q4H PRN Pain, Moderate (4-6) Nitroglycerin 0.4 mg 10/24/18 03:07 Nitrostat SL .Q5MIN PRN Chest Pain Ondansetron HCl 4 mg 10/24/18 03:04 11/01/18 16:45 Zofran IV 4 mg Q8H PRN Administration Nausea And Vomiting Sodium Chloride 10 ml 10/24/18 10:00 11/04/18 10:14 Sodium Chloride Flush Syringe 10 Ml IV 10 ml BID JUSTIN Administration Sodium Chloride 10 ml 10/24/18 03:04 Sodium Chloride Flush Syringe 10 Ml IV PRN PRN LINE FLUSH
--- NOTE | 2018-11-04 15:31 | Progress Note ---
Assessment and Plan Assessment and plan: Patient is a 78 year old woman with a history of hypertension, Parkinson's disease and functional quadriplegia who presented to the ED with epigastric pain radiating to the chest. Cardiology was consulted and recommended conservative management due to patients frailty and not a candidate for aggressive cardiac evaluation and therapy.Patient was also seen by arc cutter and was noted to have a right upper ext AV fistula which is matured with appropriate thrill and bruit. They Will follow up in 2 weeks. Wound care evaluated and recommended wound vac, considering the patients clinically cond ition it is important that this patient be in a nursing facility for rehab and also wound management. 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 It appears she doesn't have any more days left and will have to pay out of pocket, so she is looking for home with 24 hour care because she lives alone. History Interval history: Patient was seen and examined. Follow-up on current diagnosis sacral decubitus. Overnight uneventful. Patient denies any chest pain, shortness breath, na usea/vomiting or severe headaches. Imaging, nursing note, chart, labs and old chart reviewed. Discussed with patient. Hospitalist Physical - Physical exam Narrative exam: Gen: WDWN, NAD, Awake, Alert, Orientated HEENT: NCAT, EOMI, PERRL, OP Clear Neck: supple, no adenopathy, no thyromegaly, no JVD CVS/Heart: RRR, normal S1S2, pulses present bilaterally Chest/Lungs: CTA B, Symmetrical chest expansion, good air entry bilaterally GI/Abdomen: soft, NTND, good bowel sounds, no guarding or rebound /Bladder: no suprapubic tenderness, no CVA or paraspinal tenderness Extermity/Skin: no c/c/e, stage 4 sacral decub ulcer with wound vac in place MSK: FROM x 4 Neuro: CN 2-12 grossly intact, no new focal deficits Psych: calm - Constitutional Vitals: Temp Pulse Resp BP Pulse Ox 98.5 F 57 L 18 142/50 97 11/04/18 07:39 11/04/18 10:13 11/04/18 07:39 11/04/18 10:13 11/04/18 07:39 General appearance: Present: no acute distress, cachectic Results - Labs CBC & Chem 7: 11/01/18 04:31 11/04/18 04:43 Labs: Laboratory Last Values WBC 4.7 K/mm3 (4.5-11.0) 11/01/18 04:31 RBC 3.54 M/mm3 (3.65-5.03) L 11/01/18 04:31 Hgb 9.1 gm/dl (10.1-14.3) L 11/01/18 04:31 Hct 28.2 % (30.3-42.9) L 11/01/18 04:31 MCV 80 fl (79-97) 11/01/18 04:31 MCH 26 pg (28-32) L 11/01/18 04:31 MCHC 32 % (30-34) 11/01/18 04:31 RDW 21.1 % (13.2-15.2) H 11/01/18 04:31 Plt Count 232 K/mm3 (140-440) 11/01/18 04:31 Lymph % (Auto) 30.3 % (13.4-35.0) 10/23/18 19:18 [place] % (Auto) 10.5 % (0.0-7.3) H 10/23/18 19:18 Eos % (Auto) 0.8 % (0.0-4.3) 10/23/18 19:18 Baso % (Auto) 0.3 % (0.0-1.8) 10/23/18 19:18 Lymph # 1.5 K/mm3 (1.2-5.4) 10/23/18 19:18 [place] # 0.5 K/mm3 (0.0-0.8) 10/23/18 19:18 Eos # 0.0 K/mm3 (0.0-0.4) 10/23/18 19:18 Baso # 0.0 K/mm3 (0.0-0.1) 10/23/18 19:18 Seg Neutrophils % 58.1 % (40.0-70.0) 10/23/18 19:18 Seg Neutrophils # 2.9 K/mm3 (1.8-7.7) 10/23/18 19:18 Sodium 143 mmol/L (137-145) 11/04/18 04:43 Potassium 3.4 mmol/L (3.6-5.0) L 11/04/18 04:43 Chloride 104.8 mmol/L (98-107) 11/04/18 04:43 Carbon Dioxide 25 mmol/L (22-30) 11/04/18 04:43 Anion Gap 17 mmol/L 11/04/18 04:43 BUN 45 mg/dL (7-17) H 11/04/18 04:43 Creatinine 1.5 mg/dL (0.7-1.2) H 11/04/18 04:43 Estimated GFR 41 ml/min 11/04/18 04:43 BUN/Creatinine Ratio 30 % 11/04/18 04:43 Glucose 103 mg/dL (65-100) H 11/04/18 04:43 Calcium 8.9 mg/dL (8.4-10.2) 11/04/18 04:43 Phosphorus 3.30 mg/dL (2.5-4.5) 11/01/18 04:31 Iron 38 ug/dL (37-170) 10/24/18 14:20 TIBC 170 mcg/dL (250-450) L 10/24/18 14:20 Ferritin 211.2 ng/mL (13.0-400.0) 10/24/18 14:20 Troponin T 0.045 ng/mL (0.00-0.029) H 10/24/18 00:36 Triglycerides 66 mg/dL (2-149) 10/23/18 19:18 Cholesterol 173 mg/dL (50-199) 10/23/18 19:18 LDL Cholesterol Direct 104 mg/dL (50-130) 10/23/18 19:18 HDL Cholesterol 65 mg/dL (40-59) H 10/23/18 19:18 Cholesterol/HDL Ratio 2.66 % 10/23/18 19:18 Urine Total Volume 1000 ml 04/09/19 18:00 Urine Creatinine 66.1 mg/dL (0.1-20.0) H 11/03/18 18:00 Ur Creatinine 24 Hour 0.7 (0.8-2.8) L 11/03/18 18:00 Active Medications - Current Medications Current Medications: Generic Name Dose Route Start Last Admin Trade Name Freq PRN Reason Stop Dose Admin Acetaminophen 650 mg 10/24/18 03:04 Tylenol PO Q4H PRN Pain MILD(1-3)/Fever >100.5/VELA Al Hydrox/Mg Hydrox/Simethicone 30 ml 10/24/18 03:04 Alum-Mag Hydrox-Simeth 453-726-11hx/5ml PO Q4H PRN Indigestion Amantadine HCl 200 mg 10/26/18 10:00 11/04/18 10:14 Symmetrel PO 200 mg DAILY JUSTIN Administration Amlodipine Besylate 10 mg 10/24/18 03:47 11/04/18 10:14 Norvasc PO 10 mg QDAY JUSTIN Administration Bisacodyl 10 mg 10/24/18 22:00 Dulcolax [place] QDAY PRN Constipation Carbidopa/Levodopa 1 each 10/26/18 18:00 11/04/18 14:51 Sinemet Er PO 1 each QID JUSTIN Administration Carvedilol 25 mg 10/24/18 04:00 11/04/18 10:13 Coreg PO 25 mg BID JUSTIN Administration Clonidine HCl 0.2 mg 10/24/18 03:47 Catapres PO Q4H PRN Blood Pressure Docusate Sodium 100 mg 10/24/18 10:00 11/04/18 10:14 Colace PO 100 mg BID JUSTIN Administration Famotidine 10 mg 10/30/18 22:00 11/04/18 10:13 Pepcid PO 10 mg BID JUSTIN Administration Furosemide 40 mg 10/25/18 10:00 11/04/18 10:14 Lasix PO 40 mg QDAY JUSTIN Administration Heparin Sodium (Porcine) 5,000 unit 10/24/18 10:00 11/04/18 10:15 Heparin SUB-Q 5,000 unit Q12HR JUSTIN Administration Lidocaine HCl 2.5 ml 10/27/18 16:06 10/27/18 17:44 Xylocaine Topical 4% TP 2.5 ml TID PRN Administration Pain, Moderate (4-6) Morphine Sulfate 1 mg 10/24/18 03:04 Morphine IV Q4H PRN Pain, Moderate (4-6) Nitroglycerin 0.4 mg 10/24/18 03:07 Nitrostat SL .Q5MIN PRN Chest Pain Ondansetron HCl 4 mg 10/24/18 03:04 11/01/18 16:45 Zofran IV 4 mg Q8H PRN Administration Nausea And Vomiting Sodium Chloride 10 ml 10/24/18 10:00 11/04/18 10:14 Sodium Chloride Flush Syringe 10 Ml IV 10 ml BID JUSTIN Administration Sodium Chloride 10 ml 10/24/18 03:04 Sodium Chloride Flush Syringe 10 Ml IV PRN PRN LINE FLUSH Nutrition/Malnutrition Assess - Dietary Evaluation Nutrition/Malnutrition Findings: Nutrition Notes Start: 10/24/18 12:57 Freq: Status: Active Protocol: Document 11/02/18 16:23 JOSEPH (Rec: 11/02/18 16:27 JOSEPH [email or web address]) Nutrition Notes Initial or Follow up Reassessment Current Diagnosis CKD (stage V CKD),Decubitus( Pressure Ulcer),Hypertension Other Pertinent Diagnosis Parkinson's Current Diet Renal + Nepro and Bobby BID Labs/Tests No new available Pertinent Medications Reviewed Height 5 ft 7 in Weight 74.3 kg [place] Body Weight (kg) 61.36 BMI 25.6 Subjective/Other Information Pt consumed 75% of meals yesterday. Says she eats 25- 50% of meals on most days and drinks ONS. D/C summary written yesterday. Burn Absent Trauma Absent #2 Nutrition Diagnosis Malnutrition Diagnosis Progress(for reassessment Continues documentation) #1 Nutrition Diagnosis Increased nutrient needs ( specify in comment below) Comments: protein Diagnosis Progress(for reassessment Continues documentation) Is patient on ventilator? No Is Patient Ambulatory and/or Out of Bed No REE-([facility]-confined to bed) 1525.152 Kcal/Kg value to use for calculation 30 Approximate Energy Requirements Using 2229 kcal/Kg Calculation Used for Recommendations Kcal/kg Additional Notes protein (1.25-1.5g/kg): 93- 111g daily fluid: 1mL/kcal or per MD Nutrition Intervention Change Diet Order: continue current Add Supplement/Snack (indicate name/kcal Nepro BID and Bobby 2 daily /protein ) Provides kCal: 1,040 Provides Protein (gm) 41 Goal #1 Meet at least 75% of calorie and protein needs via PO and ONS intakes Goal #2 Wound healing Follow-Up By: 11/09/18 Additional Comments F/U: intakes (meals/ONS), wt
[2018-11-04 15:40] VITALS: BP 152/66
--- NOTE | 2018-11-05 09:07 | Discharge Summary ---
Providers - Providers Date of Admission: 10/24/18 03:04 Date of discharge: 11/04/18 Attending physician: ALONSO MIRELES 10/24/18 03:54 Consult to Wound/ET Nurse [CONS] Routine Reason For Exam: wound eval 10/24/18 08:23 Consult to Physician [CONS] Routine Comment: Consulting Provider: JOEY JUNIOR Physician Instructions: Reason For Exam: CKD 10/26/18 15:37 Consult to Case Management [CONS] Routine Services Needed at Discharge: Other Notified:: insurance case manager Additional Physician Instructions: wound vac 10/27/18 10:11 Consult to Mental Health [CONS] Routine Reason For Exam: personality change and psych eval request per fami Place consult to:: mental health Notified:: WHIT Phone number called:: [phone] Was contact made?: Yes If yes, spoke with:: WHIT Time called:: 11:14 [facility] Hospital[facility] Condition: Stable Hospital course: Patient is a 78 year old woman with a history of hypertension, Parkinson's disease and functional quadriplegia who presented to the ED with epigastric pain radiating to the chest. Cardiology was consulted and recommended conservative management due to patients frailty and not a candidate for aggressive cardiac evaluation and therapy.Patient was also seen by slots manager and was noted to have a right upper ext AV fistula which is matured with appropriate thrill and bruit. They Will follow up in 2 weeks. Wound care evaluated and recommended wound vac, considering the patients clinically condition it is important that this patient be in a nursing facility for rehab and also wound management. 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 It appears she doesn't have any more days left and will have to pay out of pocket, so she is looking for home with 24 hour care because she lives alone. Disposition: [id number] Time spent for discharge: 32 minutes Core Measure Documentation - Palliative Care Palliative Care/ Comfort Measures: Not Applicable - Core Measures Any of the following diagnoses?: none - VTE Discharge Requirements Deep Vein Thrombosis/Pulmonary Embolism Present on Admission: No Has pt received <5 days of overlap therapy or INR<2.0: No Anticoagulant overlap therapy prescribed at discharge: No Contraindication No Overlap Therapy order at DC: Not Indicated Exam - Physical Exam Narrative exam: Gen: WDWN, NAD, Awake, Alert, Orientated HEENT: NCAT, EOMI, PERRL, OP Clear Neck: supple, no adenopathy, no thyromegaly, no JVD CVS/Heart: RRR, normal S1S2, pulses present bilaterally Chest/Lungs: CTA B, Symmetrical chest expansion, good air entry bilaterally GI/Abdomen: soft, NTND, good bowel sounds, no guarding or rebound /Bladder: no suprapubic tenderness, no CVA or paraspinal tenderness Extermity/Skin: no c/c/e, stage 4 sacral decub ulcer with wound vac in place MSK: FROM x 4 Neuro: CN 2-12 grossly intact, no new focal deficits Psych: calm - Constitutional Vitals: Temp Pulse Resp BP Pulse Ox 98.6 F 73 18 152/66 98 11/04/18 13:27 11/04/18 13:27 11/04/18 13:27 11/04/18 13:27 11/04/18 13:27 Plan Activity: up only with assistance, fall precautions, other (no strenous activity, ) Follow up with: [facility] [Outside] - 7 Days GEOFFREY GUZMAN MD [Staff Physician] - 7 Days JOEY JUNIOR MD [Staff Physician] - 7 Days [facility] REYMUNDO LEWIS MD [Primary Care Provider] - 3-5 Days Prescriptions: Antacid [Alum-Mag Hydrox-Simeth [id number]/5Ml] 30 ml PO Q4H PRN #30 oral.liqd PRN Reason: Indigestion cloNIDine [Catapres] 0.2 mg PO Q4H PRN #30 tablet PRN Reason: Blood Pressure Docusate Sodium [Colace CAP] 100 mg PO BID #30 capsule Carvedilol [Coreg] 25 mg PO BID #60 tablet Bisacodyl [Dulcolax suppos] 10 mg [place] QDAY PRN #30 supp.rect PRN Reason: Constipation Furosemide [Lasix TAB] 40 mg PO QDAY #30 tablet amLODIPine [Norvasc] 10 mg PO QDAY #30 tablet Famotidine [Pepcid] 10 mg PO BID #30 tablet oxyCODONE /ACETAMINOPHEN [Percocet 5/325] 1 tab PO Q6HR PRN #14 tablet PRN Reason: Pain Sodium Bicarbonate 650 mg PO BID #20 tablet
== END 2018-11-04 18:00 | DRG 280 ==
LOC: ED 17:47 → 4A 10-24 03:04 → 2B-ACE 10-31 17:23
PROVIDERS: ADMIT Internal Medicine; ATTEND Internal Medicine
DX: I21.A1 Myocardial infarction type 2 (principal); L89.154 Pressure ulcer of sacral region, stage 4; N17.0 Acute kidney failure with tubular necrosis; N18.6 End stage renal disease; E87.2 Acidosis; I12.0 Hypertensive chronic kidney disease with stage 5 chronic kidney disease or end stage renal disease; R64 Cachexia; F33.2 Major depressive disorder, recurrent severe without psychotic features; M94.0 Chondrocostal junction syndrome [Tietze]; G20 Parkinson's disease; K21.9 Gastro-esophageal reflux disease without esophagitis; M19.90 Unspecified osteoarthritis, unspecified site; R56.9 Unspecified convulsions; D63.1 Anemia in chronic kidney disease; I25.10 Atherosclerotic heart disease of native coronary artery without angina pectoris; Z68.25 Body mass index [BMI] 25.0-25.9, adult; Z88.0 Allergy status to penicillin; Z91.040 Latex allergy status; Z90.710 Acquired absence of both cervix and uterus
CPT/HCPCS: 36415; 70450; 71045; 80048; 80061; 82570; 82728; 83550; 84100; 84484; 85025; 85027; 87116; 93005; 93010; G0378; J1644; J2405